=== PATIENT | female | born 1990 | race Caucasian/White ===

== ENCOUNTER 2020-03-08 17:28 | Observation (INO) | payer OTHER, SELFPAY ==
--- NOTE | 2020-03-08 17:28 | OBADM ---
This patient, Krystyna Wilde, admitted to the OB room Labor/Delivery/Recovery 105 for observation. Patient/family oriented to hospital policies and general routines including ID bracelet, bed and alarms, visiting hours, pain management, procedures, bathroom and other care routines, personal items, smoking policy, room service/diet, and visiting hours. Patient/Family are encouraged to report perceived risks to care and to ask questions if they do not understand what they are told or what they should do.
[2020-03-08 19:11] VITALS: BMI 26.5
--- NOTE | 2020-04-01 20:27 | PM.OBTRLD ---
OB - Triage/Final Diagnosis Final Diagnosis (1) False labor: Code(s): O47.9 - False labor, unspecified Status: Acute
== END 2020-03-08 19:23 | disposition home or self-care (01) ==
PROVIDERS: Admitting Provider Obstetrics & Gynecology; PCP Family Medicine; Visit Provider Obstetrics & Gynecology
DX: O47.03 False labor before 37 completed weeks of gestation, third trimester (principal); Z3A.39 39 weeks gestation of pregnancy
CPT/HCPCS: G0378; G0379

== ENCOUNTER 2020-03-18 16:29 | Inpatient (IN) | payer OTHER, SELFPAY ==
[2020-03-18] VITALS (55 sets, daily range): BP systolic 88–144; BP diastolic 55–90; PULSE 76–116; RESP 14–18; TEMP 36.5–37.2; O2SAT 97–100; BMI 27.3
[2020-03-18 17:16] LABS: Basophils Absolute Auto 0.1 K/mm3 (0.0-0.1); Basophils Percent Auto 0.5 % (0.2-1.2); Eosinophils Percent Auto 0.3 % (0-4.4); Hematocrit 40.2 % (37.0-47.0); Immature Granulocyte Absolute 0.19 K/mm3 (0.00-0.031); Immature Granulocyte Percent A 1.5 % (0-0.5); Lymphocytes Absolute Auto 3.14 K/mm3 (0.9-3.2); Lymphocytes Percent Auto 24.8 % (18.3-44.2); Mean Corpuscular HGB Conc 34.8 g/dl (32-36); Mean Corpuscular Hemoglobin 31.3 pg (26-34); Mean Corpuscular Volume 89.7 fl (80-100); Mean Platelet Volume 10.5 fl (7.4-10.4); Monocytes Absolute Auto 0.8 K/mm3 (0.1-0.6); Monocytes Percent Auto 6.2 % (2.6-8.5); Neutrophils Absolute Auto 8.4 K/mm3 (1.3-6.7); Neutrophils Percent Auto 66.7 % (45.5-73.1); Platelet Count Result 230 k/mm3 (150-375); Red Blood Count 4.48 M/mm3 (4.2-5.4); Red Cell Distribution Width 12.4 % (11.5-14.5); White Blood Count 12.7 K/mm3 (4.5-10.0)
[2020-03-18 17:29] LABS: Alanine Aminotransferase 20 U/L (4-35); Alkaline Phosphatase 275 U/L (38-126); Anion Gap 10 mmol/L (8-16); Aspartate Amino Transferase 36 U/L (14-36); Bilirubin,Total 0.4 mg/dL (0.2-1.3); Blood Urea Nitrogen 17 mg/dL (7-17); Carbon Dioxide 21 mmol/L (22-30); Chloride 104 mmol/L (98-107); Estimated CRCL calculation 77 ml/min; Estimated Glomerular Filt Rate > 60; Glucose 103 mg/dL (65-105); Potassium 4.1 mmol/L (3.4-5.0); Sodium 135 mmol/L (137-145)
[2020-03-18] MEDS: LACTATED RINGERS 1,000 ML 125 ML IV CONT (17:32)
[2020-03-18 17:37] LABS: Uric Acid 7.8 mg/dL (2.5-7.5)
[2020-03-18] MEDS: OXYTOCIN 30 UNITS/NS 500 ML 30 UNITS/500 ML BAG IV CONT (17:49)
[2020-03-18] MEDS: ceFAZolin 2 GM/D5W 50 ML 2 GM/50 ML BAG IVPB (19:26)
[2020-03-18] MEDS: LACTATED RINGERS 1,000 ML 999 ML IV CONT (19:30)
[2020-03-18] MEDS: KETOROLAC 30 MG/ML VIAL (*BKC) IV PUSH (19:41)
--- NOTE | 2020-03-18 19:56 | PM.IMHP ---
H&P: HPI History of Present Illness Date/Time: 03/18/20 19:56 pt is 29 y.o female who was admitted for GHTN, uric acid elevated, other labs stable, bp's not svere range, pt is asymptomatic w/o walker, visual changes and epigastric pain. CNM at bs to attempt membrane rupture due to heart rate decelerations. Chief complaint: Induction of Labor Narrative: Krystyna Wilde is a 29 year old female Review of Systems Review of Systems: All systems reviewed & are unremarkable except as noted in HPI and below [facility] Family History Family History (Updated 02/14/20 @ 15:36 by Maggie Padron RN) Mother Bladder disease Father Hypertension Social History Social History Smoking status: Never smoker Second hand tobacco smoke exposure: No Substance use: never Spiritual care concerns: No Meds Home Medications and Allergies Home Medications Medication Instructions Recorded Confirmed Type PNV cmb#95-ferrous fumarate-FA 1 tablet PO DAILY 02/14/20 03/08/20 History [] Allergies Allergy/AdvReac Type Severity Reaction Status Date / Time No Known Allergies Allergy Verified 02/14/20 15:34 Vital Signs Vital Signs - 24 hr 03/18/20 17:13 03/18/20 17:30 03/18/20 17:46 Temperature 36.6 C Pulse Rate 103 H 94 Blood Pressure 130/86 130/85 03/18/20 18:00 03/18/20 18:30 03/18/20 19:00 Temperature Pulse Rate 85 85 85 Blood Pressure 125/89 122/83 104/90 Exam Const: General: cooperative Nutritional Appearance: average body habitus Limitations: no limitations H&P: Results Labs Labs: Short CBC 03/18/20 Range/Units 17:00 WBC 12.7 H (4.5-10.0) K/mm3 Hgb 14.0 (12.0-15.0) g/dL Hct 40.2 (37.0-47.0) % Plt Count 230 (150-375) k/mm3 BMP 03/18/20 17:00 Sodium 135 L Potassium 4.1 Chloride 104 Carbon Dioxide 21 L BUN 17 Creatinine 0.90 Glucose 103 Calcium 10.0 Liver Function 03/18/20 Range/Units 17:00 Total Bilirubin 0.4 (0.2-1.3) mg/dL AST 36 (14-36) U/L ALT 20 (4-35) U/L Alkaline Phosphatase 275 H (38-126) U/L Albumin 4.0 (3.5-5.1) g/dL Assessment and Plan Assessment and plan (1) Gestational HTN: Code(s): O13.9 - Gestational [-induced] hypertension without significant proteinuria, unspecified trimester Status: Acute (2) intolerance to labor, delivered, current hospitalization: Code(s): O77.9 - Labor and delivery complicated by stress, unspecified Status: Acute Assessment and Plan: proceed with emergency section for intolerance to labor DR Painter to bedside
--- NOTE | 2020-03-18 19:57 | P.OP_ITS ---
Procedure Note - Detailed Date of procedure: 03/18/20 Pre-op diagnosis: Induction of Labor Term gestation, nonreassuring heart tones Post-op diagnosis: same Procedure performed: low-transverse delivery Description of procedure: The patient was taken the operating room. She was prepped and draped in the dorsal supine position with leftward tilt after induction of spinal anesthetic. When anesthesia was found to be adequate a low- transverse skin incision was made and carried down to the level the fascia with the knife. The fascial incision was made at the midline with a scalpel. The fascial incision was extended laterally with Flynn scissors. The fascia was tented upward superior and inferior with Beau clamps. The rectus muscles were dissected off bluntly. The rectus muscles at the midline. The preperitoneal fat was dissected bluntly at the superior aspect of the separate the rectus muscles. The peritoneal cavity was entered bluntly in the same area. The peritoneal incision was extended superior and inferior with good visualization of bladder. Bladder blade was inserted. A low-transverse incision was made on the uterus with the scalpel. It was carried down the level of the amniotic cavity with a knife. The amniotic cavity bluntly. The uterine incision was made laterally with blunt traction. The infant was delivered. The cord was clamped and cut. The infant was handed off to waiting pediatric staff. Cord bloods were obtained. The placenta was removed manually. The uterus was exteriorized. Uterus cleared of all clots and debris. Uterus closed in 0 V icryl in a running locked fashion. An imbricating layer of 0 Vicryl was also placed on the to bolster the closure. The uterus was returned to the abdomen. The gutters were cleared of all clots and debris. The fascia was closed 0 Vicryl in a running fashion. Subcutaneous tissue was irrigated and bleeding areas were cauterized. The skin was closed with subcuticular absorbable catherine. The incision was covered with derma burk. The patient tolerated the procedure well. She was taken recovery room stable condition. Sponge, lap, needle counts were correct x2. Anesthesia: spinal Surgeon: Karen Painter MD Estimated blood loss (mL): 367 Drains: No Packing: No Pathology: none sent Complications: No immediate complications Condition: stable Disposition: floor Findings: Normal maternal anatomy. Average size infant with normal Apgars. No gross evidence of abruption.
--- NOTE | 2020-03-18 20:22 | WPDANESEPPF ---
Anes - Initial Pre Proc Eval Procedure: Operation Date: 03/18/20 19:13 Proposed Procedures p Section - Karen Painter MD Date/Time: 03/18/20 20:22 Surgeon: Karen Painter MD Pre Op Diagnosis: Induction of Labor Patient Data Age: 29 Gender: F Height: 1.6 m Weight: 70 kg Last Vital Signs Temp 36.6 C 03/18/20 17:46 Pulse 109 H 03/18/20 20:20 BP 98/72 L 03/18/20 20:20 Pulse Ox 100 03/18/20 20:18 Allergies Allergy/AdvReac Type Severity Reaction Status Date / Time No Known Allergies Allergy Verified 02/14/20 15:34 Home Medications Medication Instructions Recorded Confirmed Type PNV cmb#95-ferrous fumarate-FA 1 tablet PO DAILY 02/14/20 03/08/20 History [] Laboratory Tests 03/18/20 03/18/20 03/18/20 17:00 17:00 17:00 WBC 12.7 K/mm3 H K/mm3 (4.5-10.0) RBC 4.48 M/mm3 M/mm3 (4.2-5.4) Hgb 14.0 g/dL g/dL (12.0-15.0) Hct 40.2 % % (37.0-47.0) MCV 89.7 fl fl (80-100) MCH 31.3 pg pg (26-34) MCHC 34.8 g/dl g/dl (32-36) RDW 12.4 % % (11.5-14.5) Plt Count 230 k/mm3 k/mm3 (150-375) MPV 10.5 fl H fl (7.4-10.4) Immature Gran % (Auto) 1.5 % H % (0-0.5) Neut % (Auto) 66.7 % % (45.5-73.1) Lymph % (Auto) 24.8 % % (18.3-44.2) [place] % (Auto) 6.2 % % (2.6-8.5) Eos % (Auto) 0.3 % % (0-4.4) Baso % (Auto) 0.5 % % (0.2-1.2) Lymph # (Auto) 3.14 K/mm3 K/mm3 (0.9-3.2) [place] # (Auto) 0.8 K/mm3 H K/mm3 (0.1-0.6) Eos # (Auto) 0.0 K/mm3 K/mm3 (0-0.3) Baso # (Auto) 0.1 K/mm3 K/mm3 (0.0-0.1) Abs Immat Gran (auto) 0.19 K/mm3 H K/mm3 (0.00-0.031) Absolute Neuts (auto) 8.4 K/mm3 H K/mm3 (1.3-6.7) Absolute Nucleated RBC 0.0 K/mm3 K/mm3 (0.0-0.012) Nucleated RBC % 0.0 % % (0.0-0.2) Sodium Potassium Chloride Carbon Dioxide Anion Gap BUN Creatinine Estim Creat Clear Calc Estimated GFR Glucose Uric Acid 7.8 mg/dL H mg/dL (2.5-7.5) Calcium Total Bilirubin AST ALT Alkaline Phosphatase Total Protein Albumin RPR Pending Blood Type Antibody Screen 03/18/20 03/18/20 17:00 17:00 WBC RBC Hgb Hct MCV MCH MCHC RDW Plt Count MPV Immature Gran % (Auto) Neut % (Auto) Lymph % (Auto) [place] % (Auto) Eos % (Auto) Baso % (Auto) Lymph # (Auto) Terry # (Auto) Eos # (Auto) Baso # (Auto) Abs Immat Gran (auto) Absolute Neuts (auto) Absolute Nucleated RBC Nucleated RBC % Sodium 135 mmol/L L mmol/L (137-145) Potassium 4.1 mmol/L mmol/L (3.4-5.0) Chloride 104 mmol/L mmol/L (98-107) Carbon Dioxide 21 mmol/L L mmol/L (22-30) Anion Gap 10 mmol/L mmol/L (8-16) BUN 17 mg/dL mg/dL (7-17) Creatinine 0.90 mg/dL mg/dL (0.7-1.0) Estim Creat Clear Calc 77 ml/min ml/min Estimated GFR > 60 (59 - ) Glucose 103 mg/dL mg/dL (65-105) Uric Acid Calcium 10.0 mg/dL mg/dL (8.4-10.2) Total Bilirubin 0.4 mg/dL mg/dL (0.2-1.3) AST 36 U/L U/L (14-36) ALT 20 U/L U/L (4-35) Alkaline Phosphatase 275 U/L H U/L (38-126) Total Protein 7.0 g/dL g/dL (6.3-8.2) Albumin 4.0 g/dL g/dL (3.5-5.1) RPR Blood Type O Positive Antibody Screen Negative Patient hx anesthesia problems: none Family hx anesthesia problems: n
[2020-03-18] MEDS: OXYTOCIN 30 UNITS/NS 500 ML 30 UNITS/500 ML BAG 125 UNITS IV CONT (21:54)
--- NOTE | 2020-03-18 23:10 | OBPPTRN ---
Patient transferred to post room # 286 via stretcher. Support person and (in crib) present. Oriented to unit, room, information board, rooming in, admission packet and security measures. Patient verbalizes understanding.
[2020-03-19] VITALS (8 sets, daily range): BP systolic 111–129; BP diastolic 66–88; PULSE 80–97; RESP 16–18; TEMP 36.3–36.6; O2SAT 97–100
[2020-03-19] MEDS: DEXTROSE 5%/0.45% SOD CHL 1,000 ML 125 ML IV CONT (02:36)
[2020-03-19] MEDS: LANOLIN (LANSINOH) 7.5 GM CREAM 1 APPLIC TOPICAL (04:31)
[2020-03-19] MEDS: KETOROLAC 30 MG/ML VIAL (*BKC) IV PUSH (05:09)
[2020-03-19 05:46] LABS: Basophils Percent Auto 0.3 % (0.2-1.2); Eosinophils Absolute Auto 0.1 K/mm3 (0-0.3); Eosinophils Percent Auto 0.4 % (0-4.4); Hematocrit 32.5 % (37.0-47.0); Hemoglobin 11.3 g/dL (12.0-15.0); Immature Granulocyte Absolute 0.16 K/mm3 (0.00-0.031); Lymphocytes Percent Auto 15.6 % (18.3-44.2); Mean Corpuscular HGB Conc 34.8 g/dl (32-36); Mean Corpuscular Volume 89.3 fl (80-100); Mean Platelet Volume 10.5 fl (7.4-10.4); Monocytes Absolute Auto 1.1 K/mm3 (0.1-0.6); Neutrophils Absolute Auto 12.1 K/mm3 (1.3-6.7); Neutrophils Percent Auto 75.7 % (45.5-73.1); Platelet Count Result 168 k/mm3 (150-375); Red Blood Count 3.64 M/mm3 (4.2-5.4); Red Cell Distribution Width 12.4 % (11.5-14.5)
[2020-03-19 06:04] LABS: Alanine Aminotransferase 17 U/L (4-35); Alkaline Phosphatase 204 U/L (38-126); Anion Gap 6 mmol/L (8-16); Aspartate Amino Transferase 37 U/L (14-36); Bilirubin,Total 0.4 mg/dL (0.2-1.3); Blood Urea Nitrogen 15 mg/dL (7-17); Calcium 9.2 mg/dL (8.4-10.2); Carbon Dioxide 23 mmol/L (22-30); Chloride 108 mmol/L (98-107); Estimated CRCL calculation 77 ml/min; Estimated Glomerular Filt Rate > 60; Glucose 93 mg/dL (65-105); Potassium 3.9 mmol/L (3.4-5.0); Sodium 137 mmol/L (137-145); Uric Acid 7.3 mg/dL (2.5-7.5)
--- NOTE | 2020-03-19 07:58 | P.PNOB_ITS ---
OB - PN: Subj Subjective Date/time seen: 03/19/20 07:58 Patient comments: no complaints baby status: doing well OB - PN: Obj Data Labs CBC & Chem 7: 03/19/20 05:04 03/19/20 05:04 Labs: Laboratory Results - last 24 hr 03/18/20 03/18/20 03/18/20 17:00 17:00 17:00 WBC 12.7 H RBC 4.48 Hgb 14.0 Hct 40.2 MCV 89.7 MCH 31.3 MCHC 34.8 RDW 12.4 Plt Count 230 MPV 10.5 H Immature Gran % (Auto) 1.5 H Neut % (Auto) 66.7 Lymph % (Auto) 24.8 [place] % (Auto) 6.2 Eos % (Auto) 0.3 Baso % (Auto) 0.5 Lymph # (Auto) 3.14 [place] # (Auto) 0.8 H Eos # (Auto) 0.0 Baso # (Auto) 0.1 Abs Immat Gran (auto) 0.19 H Absolute Neuts (auto) 8.4 H Absolute Nucleated RBC 0.0 Nucleated RBC % 0.0 Sodium Potassium Chloride Carbon Dioxide Anion Gap BUN Creatinine Estim Creat Clear Calc Estimated GFR Glucose Uric Acid 7.8 H Calcium Total Bilirubin AST ALT Alkaline Phosphatase Total Protein Albumin Blood Type O Positive Antibody Screen Negative 03/18/20 03/19/20 03/19/20 17:00 05:04 05:04 WBC 16.0 H RBC 3.64 L Hgb 11.3 L Hct 32.5 L MCV 89.3 MCH 31.0 MCHC 34.8 RDW 12.4 Plt Count 168 MPV 10.5 H Immature Gran % (Auto) 1.0 H Neut % (Auto) 75.7 H Lymph % (Auto) 15.6 L [place] % (Auto) 7.0 Eos % (Auto) 0.4 Baso % (Auto) 0.3 Lymph # (Auto) 2.50 [place] # (Auto) 1.1 H Eos # (Auto) 0.1 Baso # (Auto) 0.0 Abs Immat Gran (auto) 0.16 H Absolute Neuts (auto) 12.1 H Absolute Nucleated RBC 0.0 Nucleated RBC % 0.0 Sodium 135 L 137 Potassium 4.1 3.9 Chloride 104 108 H Carbon Dioxide 21 L 23 Anion Gap 10 6 L BUN 17 15 Creatinine 0.90 0.90 Estim Creat Clear Calc 77 77 Estimated GFR > 60 > 60 Glucose 103 93 Uric Acid 7.3 Calcium 10.0 9.2 Total Bilirubin 0.4 0.4 AST 36 37 H ALT 20 17 Alkaline Phosphatase 275 H 204 H Total Protein 7.0 6.0 L Albumin 4.0 3.0 L Blood Type Antibody Screen OB - PN A/P Plan day: 1 Plan: routine care Time Spent With Patient Time: Total time spent is greater than 50% in coordination of care (as documented) at patient's floor/unit and/or counseling patient: Review of Systems Review of Systems: All systems reviewed & are unremarkable except as noted in HPI and below Exam Const: General: cooperative Psych: Attitude: cooperative Thought content: Yes Normal thought content present
--- NOTE | 2020-03-19 09:11 | WPDANLDPN2 ---
Anes-Prog Note L&D Date/Time: 03/19/20 09:11 Comfortable throughout: section Neuraxial method: spinal Epidural/Spinal procedure site: clean & non-tender Neuro status: Neuro function grossly intact. Cardiovascular status: normal Respiratory status: normal Airway patency: baseline Mental status: baseline Post-Op hydration status: normal Vital Signs: Last Vital Signs Temp 36.6 C 03/19/20 07:25 Pulse 80 03/19/20 07:25 Resp 18 03/19/20 07:25 BP 111/66 03/19/20 07:25 Pulse Ox 97 03/19/20 07:25 Pain score (VAS): 3 I/O: Intake & Output 03/18/20 03/19/20 03/19/20 23:59 07:59 15:59 Intake Total 1156 1168 Output Total 337 500 Balance 819 668 Post-procedural complaints: pruritis mild, no treatment Patient feedback: Patient satisfied with anesthetic care.
--- NOTE | 2020-03-19 09:11 | WPDANLDNPN2 ---
Anes-Prog Note L&D-Neuraxial Date/Time: 03/19/20 09:11 Neuraxial medications: intrathecal PF morphine Opiod-related complaints: pruritis mild, no treatment Patient feedback: Patient satisfied with post-operative pain management.
--- NOTE | 2020-03-19 09:25 | PC.NURSE ---
Mother called out for assist with waking for feeding. Consulted with patient, mother reports has been eagerly feeding, since circumcision will not wake. Assured mother this is normal. Demonstrated stimulation techniques to wake infant for feeding. Infant easily awoke with feeding cues noted. Assisted with to breast. Reviewed infant feeding cues, frequencies, duration of feedings, feeding elimination flow sheet, and signs of adequate intake. Reviewed positioning/alignment in cross cradle, holding breast in U hold and guided asymmetrical latch on. Infant was able to latch correctly. Infant nursed eagerly, with steady draws and frequent swallowing noted. Reviewed signs of a correct latch, effective nursing and suck swallow ratio. was able to maintain latch without discomfort to mother. Nipple care reviewed. Suggested to stimulate while feeding to keep awake and effectively feeding for increased intake and to assist with maintaining deep latch. Demonstrated how to adjust latch more deeply while feeding. Instructed mother to call out for RN assistance if she is unable to latch infant for feeding or she has discomfort with nursing. Instructed feeding should be initiated three hours from start of last feeding or if feeding cues are noted before. Mother voiced understanding of information shared.
[2020-03-19 11:20] LABS: Rapid Plasma Reagin Non-Reactive (NonReactive)
[2020-03-19] MEDS: DOCUSATE SODIUM 100 MG CAPSULE PO ×2 (11:22→17:27)
[2020-03-19] MEDS: MULTIVIT/MIN/PREN/FOL AC/IRON TABLET 1 TAB PO (11:22)
[2020-03-19] MEDS: HYDROcodone/acetaminophen (*CRX) 10-325 MG TABLET 1 TAB PO ×3 (11:22→17:27)
[2020-03-19] MEDS: SIMETHICONE 80 MG TAB.CHEW PO ×2 (11:22→14:49)
[2020-03-19] MEDS: IBUPROFEN 600 MG TABLET PO ×2 (11:23→17:28)
--- NOTE | 2020-03-19 14:45 | PC.NURSE ---
Mother called out for assist with feeding . Reviewed positioning/alignment in cross cradle, holding breast in U hold and guided asymmetrical latch on. Discussed the rational for each. Infant was able to latch correctly. Infant nursed eagerly, with steady draws and frequent swallowing noted. Reviewed signs of a correct latch, effective nursing and suck swallow ratio. Infant was able to maintain latch without discomfort to mother. Advised to stimulate while feeding to keep awake and effectively feeding for increased intake and to assist with maintaining deep latch. Demonstrated how to adjust latch more deeply while feeding. Instructed mother to call out for RN assistance if she is unable to latch infant for feeding or she has discomfort with nursing. Instructed feeding should be initiated three hours from start of last feeding or if feeding cues are noted before. Mother voiced understanding of information shared. Reviewed transition to breast milk, signs of adequate intake, and engorgement/relief. Instructed to call ICP if intake/output less than required. Reviewed regular medications mother is taking. Information provided per [place]. Reviewed community resources on the [facility] website and in the Mom/Baby guide. Information on outpatient services provided. Mother has no further questions at this time.
[2020-03-20] MEDS: IBUPROFEN 600 MG TABLET PO (03:53)
[2020-03-20] MEDS: HYDROcodone/acetaminophen (*CRX) 5-325 MG TABLET 1 TAB PO ×2 (03:53→08:47)
[2020-03-20 08:38] VITALS: BP 108/73; PULSE 96; RESP 18; TEMP 36.6; O2SAT 100
[2020-03-20] MEDS: DOCUSATE SODIUM 100 MG CAPSULE PO (08:47)
[2020-03-20] MEDS: MULTIVIT/MIN/PREN/FOL AC/IRON TABLET 1 TAB PO (08:47)
[2020-03-20] MEDS: MEASLES,MUMPS,RUBELLA VACCINE 0.5 ML VIAL SUB-Q (08:48)
--- NOTE | 2020-03-20 09:00 | PC.NURSE ---
Consulted with patient, reviewed duration of feedings, feeding elimination flow sheet, and signs of adequate intake. Demonstrated stimulation techniques to wake for feeding. Assisted with to breast. Reviewed positioning/alignment, holding breast and asymmetrical latch on. Infant was able to latch correctly. Infant nursed eagerly, with steady draws. Reviewed signs of a correct latch, effective nursing and suck swallow ratio as well as keeping infant awake during feeds. was able to maintain latch without discomfort to mother. Instructed mother to call out for RN assistance if she is unable to latch infant for feeding or she has discomfort with nursing. Instructed feeding should be initiated three hours from start of last feeding or if feeding cues are noted before. Educated mother about pumping after feeds if doesn't feed well and supplementing with any pumped breast milk she gets. Mother voiced understanding of information shared.
--- NOTE | 2020-03-20 09:01 | P.PNOB_ITS ---
OB - PN: Subj Subjective Date/time seen: 03/20/20 09:01 Patient comments: no complaints, pain well controlled, tolerating diet and flatus present [place] baby status: doing well OB - PN: Obj Data Labs CBC & Chem 7: 03/19/20 05:04 03/19/20 05:04 Labs: Laboratory Results - last 24 hr 03/18/20 17:00 RPR Non-reactive OB - PN A/P Plan day: 2 Plan: routine care and discharge home (Follow up in 1 week) Time Spent With Patient Time: Total time spent is greater than 50% in coordination of care (as documented) at patient's floor/unit and/or counseling patient: Time with patient: less than 15 minutes Review of Systems Review of Systems: All systems reviewed & are unremarkable except as noted in HPI and below Exam Narrative: Exam Narrative: Fundus firm. Vaginal flow controlled. Incision dry and intact. Negative homans. No redness, warmth, or pain of lower ext. Const: General: comfortable Chest: Breast/axilla inspection: normal inspection of the breasts Resp: Effort & Inspection: normal respiratory effort Auscultation: clear to auscultation bilaterally Cardio: Rate: regular rate GI: GI Palp: Yes Soft to palpation Psych: Appearance: grossly normal Affect: normal affect Attitude: cooperative Thought content: Yes Normal thought content present Judgement: Good judgement present (Psych)
--- NOTE | 2020-03-20 11:15 | PC.NURSE ---
Patient instructed to view the discharge video Mother & Baby Care, The First Two Weeks . Patient was given the opportunity and encouraged to ask questions. Patient verbalized understanding of information shared and has been given the mother/baby guide for home reference.
[2020-03-22 11:59] VITALS: BP 123/72; PULSE 73; RESP 16; TEMP 37.1; O2SAT 99
--- NOTE | 2020-04-12 20:52 | PM.OBDSVD ---
DS: Admitting Diagnosis Admitting Diagnosis Admitting Diagnosis: Induction of Labor DS: Discharge Diagnosis Discharge Diagnosis (1) delivery delivered: Code(s): O82 - Encounter for delivery without indication Status: Acute OB - DS: Summary OB Procedures : None OB Procedures Intrapartum: OB Procedures: : None Peripartum Data Delivery Method: Section Procedures: Procedures Operation Date: 03/18/20 19:13 Actual Procedures Side Surgeon p Section Karen Painter MD complications: none Status at Discharge Functional status at discharge: independent ambulation Time Spent with Patient Time attestation: Total time spent providing and/or coordinating discharge services: DS: Data Data Completed and Pending Completed studies during hospitalization: Pending at discharge 03/17/20 19:38 Surgical [PTH] Routine Discharge Plan Discharge Attending physician on discharge: Karen Painter Consulting providers: Rosalio Zavala ; Charlene Murray ; Ngozi Falcon Discharging Clinician: Ngozi Falcon Patient Disposition: Home, Self-Care Activity: pelvic rest Diet: as tolerated Wound Care Instructions: follow printed instructions Discharge Instructions: Education: Mom and Baby Guide and Preeclampsia Handout given to: Mother Follow-Up: Call your delivering provider's office for an appointment to be seen in: 1 Week Mom and baby should come to the [facility] for the follow-up appointment. Appointment Date/Time: March 22, 2020 at 11:00 am What to expect at your follow-up visit: Physical Assessment Call [phone] if you are unable to keep your appointment time. BREAST CARE: * Wear a snug supportive bra. * For engorgement discomfort: Breast Feeding: * Apply warm moist washcloths * Express milk as needed to relieve engorgement * Wear loose clothing * For sore nipples: * Identify correct latch-on * Apply warm moist washcloths before and after nursing * Air dry nipples after nursing * May apply Lansinoh cream to nipples ABDOMINAL INCISION: (if applicable) * Allow incision to air dry * Do NOT use lotions for powders on your incision * When showering, allow soap and water to run over the incision, but do not wash incision EPISIOTOMY/PERINEAL CARE: * Until bleeding stops, use your radha bottle after urinating * Change your pad frequently throughout the day * No tub baths until seen by your physician - You may shower ACTIVITY: * Rest as much as possible. * Do not exercise or lift anything heavier than your baby (such as laundry or other children.) * Avoid stairs or driving as much as possible. * Do not put anything into the vagina. No douching, tampons, or sexual activity until seen by physician. NOTIFY PHYSICIAN IF YOU HAVE ANY QUESTIONS OR IF ANY OF THE FOLLOWING SYMPTOMS OCCUR: * If your incision becomes red, swollen, or more painful than what you have experienced in the hospital. * If your vaginal bleeding becomes foul smelling. * If your vaginal bleeding becomes more heavy than a period or if your bleeding changes from pink to bright red. However, you may pass an occasional walnut-sized clot once or twice for the first week . * If you experience a sharp, shooting pain in you calves. * If you discover a hard, reddened area on your breast or if you experience flu-like symptoms. DIET: * Eat regular, well-balanced meals. * Drink plenty of fluids daily. If , drink to thirst. Stand Alone Forms: General Discharge Information Follow-up/Referrals: Karen Painter MD [Physician] - Discharge Medications: New hydrocodone-acetaminophen 5-325 mg Tablet 1 tab PO Q3H PRN (Reason: Moderate Pain (4-6)) Qty: 10 RF: 0 ibuprofen 600 mg Tablet 600 mg PO Q6H P
== END 2020-03-20 12:11 | disposition home or self-care (01) | DRG 540 ==
LOC: ANHLDR 19:25 → ANHOB2 03-19 04:32
PROVIDERS: Advanced Practice Midwife; Admitting Provider Obstetrics & Gynecology; PCP Family Medicine; Visit Provider Obstetrics & Gynecology
PROC: 10D00Z1 Extraction of Products of Conception, Low, Open Approach (ICD-10-PCS; CPT 59514; principal; 2020-03-18 19:15)
DX: O13.4 Gestational [pregnancy-induced] hypertension without significant proteinuria, complicating childbirth (principal); O76 Abnormality in fetal heart rate and rhythm complicating labor and delivery; O69.82X0 Labor and delivery complicated by other cord entanglement, without compression, not applicable or unspecified; Z3A.40 40 weeks gestation of pregnancy; Z37.0 Single live birth
CPT/HCPCS: 36415; 80053; 84550; 85025; 86592; 86850; 86900; 86901; 88307; 90710; A9270; J0690; J1885; J2274; J2405; J2590; J7120

== ENCOUNTER 2023-05-11 10:10 | Inpatient (IN) | payer OTHER, SELFPAY ==
[2023-05-11] VITALS (39 sets, daily range): BP systolic 91–121; BP diastolic 64–90; PULSE 69–183; RESP 12–18; TEMP 36.1–36.9; O2SAT 97–100; BMI 27.5
--- NOTE | 2023-05-11 10:47 | P.PNAN_ITS ---
Anes - Initial Pre Proc Eval Procedure: Operation Date: 05/11/23 12:00 Proposed Procedures p Repeat Section - Karen Painter MD Date/Time: 05/11/23 10:47 Surgeon: Karen Painter MD Pre Op Diagnosis: Repeat C Section Patient Data Age: 32 Gender: F Height: Weight: Allergies Allergy/AdvReac Type Severity Reaction Status Date / Time No Known Allergies Allergy Verified 02/14/20 15:34 Home Medications Medication Instructions Recorded Confirmed Type vit no.95-ferrous 1 tablet PO DAILY 02/14/20 03/08/20 History fumarate 28 mg-folic acid 800 mcg tablet () [id number] 1 cap PO Q6H PRN migrane 04/14/23 04/14/23 History 50 mg-300 mg-40 mg capsule Patient hx anesthesia problems: none Family hx anesthesia problems: none Results Review: All pre-operative results and documents have been reviewed as part of the pre- operative evaluation. PMFSH Family History Family History Mother Bladder disease Father Hypertension Social History Social History Smoking status: Never smoker Second hand tobacco smoke exposure: No Substance use: never Spiritual care concerns: No Anes - Eval Final PreProcedure Day of Procedure 05/11/23 10:47 Patient weight: overweight Heart: regular rate and rhythm Lungs: clear to auscultation Airway: Mallampati scale class II Neurological: alert and oriented Last oral intake: >/= 8 hours ASA classification: II Emergent: no Anesthetic plan: proceed Anesthesia type and monitoring: regional spinal and standard monitoring Results Review: All pre-operative results and documents have been reviewed as part of the pre- operative evaluation. Informed Consent: The patient's anesthetic plan and its attendant risks and benefits were dis cussed with the patient/family/POA. Questions were solicited and answers provided to the satisfaction of the patient/family/POA.
[2023-05-11 10:51] LABS: Basophils Absolute Auto 0.1 K/mm3 (0.0-0.1); Basophils Percent Auto 0.6 % (0.2-1.2); Eosinophils Absolute Auto 0.1 K/mm3 (0-0.3); Eosinophils Percent Auto 0.6 % (0-4.4); Hematocrit 36.4 % (37.0-47.0); Hemoglobin 12.6 g/dL (12.0-15.0); Immature Granulocyte Absolute 0.22 K/mm3 (0.00-0.031); Immature Granulocyte Percent A 2.2 % (0-0.5); Lymphocytes Absolute Auto 2.04 K/mm3 (0.9-3.2); Lymphocytes Percent Auto 19.9 % (18.3-44.2); Mean Corpuscular HGB Conc 34.6 g/dl (32-36); Mean Corpuscular Volume 89.7 fl (80-100); Mean Platelet Volume 9.9 fl (7.4-10.4); Monocytes Absolute Auto 0.7 K/mm3 (0.1-0.6); Monocytes Percent Auto 7.2 % (2.6-8.5); Neutrophils Absolute Auto 7.1 K/mm3 (1.3-6.7); Neutrophils Percent Auto 69.5 % (45.5-73.1); Platelet Count Result 201 k/mm3 (150-375); Red Blood Count 4.06 M/mm3 (4.2-5.4); Red Cell Distribution Width 12.3 % (11.5-14.5); White Blood Count 10.2 K/mm3 (4.5-10.0)
--- NOTE | 2023-05-11 10:57 | PM.IMHP ---
H&P: HPI History of Present Illness Date/Time: 05/11/23 10:57 Chief Complaint: Previous delivery, term Narrative: 32-year-old multiparous female at term with previous . We have agreed to perform repeat delivery at 39 weeks. She understands the procedure. She understands there is risk. She understands that injuries may occur that resulted hospitalization, more surgery, and severe illness. She understands there is risk of hemorrhage and infection. She denies any nausea, vomiting, fever, chills. She denies any chest pain or shortness of breath. She denies any contractions, loss of fluid, vaginal bleeding. Review of Systems Review of Systems: All systems reviewed & are unremarkable except as noted in HPI and below Constitutional: Constitutional: Denies chills, Denies fatigue, Denies fever(s) and Denies weakness Eyes: Eyes: Denies blurry vision, Denies change in vision, Denies loss of peripheral vision, Denies loss of vision, Denies other visual disturbances and Denies eye pain ENT: Denies vertigo, Denies dizziness, Denies hearing loss, Denies mouth pain, Denies nasal obstruction, Denies neck mass and Denies neck pain Cardiovascular: Cardiovascular: Denies chest pain, Denies diaphoresis, Denies syncope, Denies leg edema and Denies dyspnea Respiratory: Respiratory: Denies chest congestion, Denies cough, Denies hemoptysis, Denies dyspnea and Denies wheezing Gastrointestinal: Gastrointestinal: Denies abdominal pain, Denies constipation, Denies diarrhea, Denies nausea and Denies vomiting Genitourinary: Genitourinary: Denies hematuria, Denies change in libido, Denies nocturia, Denies genital lesions, Denies flank pain and Denies urinary urgency Musculoskeletal: Musculoskeletal: Denies abnormal gait, Denies back pain, Denies myalgias, Denies arthralgias, Denies joint swelling, Denies muscle weakness and Denies neck pain Integumentary/Breasts: Skin/Breast: Denies swelling, Denies breast pain, Denies breast mass, Denies dry skin, Denies nipple discharge, Denies unusual bruising and Denies jaundice Neurologic: Denies Neuro-related abnormal movements, Denies Abnormal speech present, Denies abnormal gait, Denies behavioral changes, Denies confusion, Denies vertigo, Denies dizziness, Denies syncope, Denies loss of vision, Denies memory loss, Denies convulsions and Denies weakness Psychiatric: Psychiatric: Denies abnormal sleep pattern, Denies behavioral changes, Denies change in libido, Denies confusion, Denies depression, Denies anhedonia and Denies memory loss Endocrine: Endocrine: Reports no additional endocrine complaints, Denies change in libido and Denies fatigue Hematologic/Lymphatic: Hematologic/Lymphatic: Reports no additional hematologic/lymphatic complaints Allergic/Immunologic: Allergic/Immunologic: Reports no additional allergic/immunologic complaints and Denies wheezing PMFSH Family History Family History Mother Bladder disease Father Hypertension Social History Social History Smoking status: Never smoker Second hand tobacco smoke exposure: No Substance use: never Lack of Transportation: No Lack of Food: Never True Current Housing: I Have Housing Concerned About Future Housing: No Difficulty Paying Gas/Electric Bills: No Difficulty Paying for Meds: No Currently Unemployed: No Education: Associate Degree Difficulty w/ Childcare or Family Care: No Spiritual care concerns: No Meds Home Medications and Allergies Home Medications Medication Instructions Recorded Confirmed Type vit no.95-ferrous 1 tablet PO DAILY 02/14/20 03/08/20 History fumarate 28 mg-folic acid 800 mcg tablet () wehstynhzh-rrhwucmocufmd-rblsflbx 1 cap PO Q6H PRN migrane 04/14/23 04/14/23 History 50 mg-300 mg-40 mg capsule Allergies Allergy/Ad
--- NOTE | 2023-05-11 10:59 | WPDHPUPDATE1 ---
History and Physical Update Update Date/Time: 05/11/23 10:59 History and Physical has been reviewed, including an updated exam of the patient. There are NO changes in the patient's condition. Risks, benefits, and alternatives have been discussed and questions answered. Patient agrees to proceed with procedure.
[2023-05-11] MEDS: LACTATED RINGERS 1,000 ML 125 ML IV CONT (11:02)
[2023-05-11] MEDS: ceFAZolin 2 GM/D5W 50 ML 2 GM/50 ML BAG IVPB (11:24)
[2023-05-11] MEDS: ONDANSETRON INJ 4 MG/2 ML VIAL IV PUSH (11:48)
--- NOTE | 2023-05-11 12:20 | W.PM.PROC2 ---
Procedure Note - Detailed Date of Procedure 05/11/23 Pre-op Diagnosis Repeat C Section Post-op Diagnosis Same Procedure Performed Low-transverse section Surgeon Karen Painter MD Anesthesia Spinal Findings Normal gestational maternal anatomy, average size , normal Apgars. Description of Procedure The patient was taken the operating room. She was prepped and draped in dorsal supine position with a leftward tilt. This was done after spinal anesthetic was applied. A low-transverse skin incision was made and carried down till of the fascia with the knife. The fascial incision was made with the knife. The fascial incision was extended laterally with Flynn scissors. The fascia was tented upward superiorly and inferiorly the rectus muscles were dissected off bluntly. The rectus muscles were the midline. The preperitoneal fat and peritoneum were dissected open bluntly at the superior aspect of the rectus muscles. The peritoneal incision was extended superior and inferior with good position of bladder. The uterine incision was made with a scalpel down to the level of the amniotic cavity. The amniotic cavity was entered bluntly. The was delivered. The cord was clamped and cut and the infant was handed off to waiting pediatric staff. Cord bloods were obtained. The placenta was removed manually. The uterus was exteriorized. The uterus was cleared of all clots, debris and membranes. The uterus was closed in 0 Vicryl running lock fashion. An imbricating over a was placed along the incision line as well. The uterus was returned to the abdomen. The gutters were cleared of all clots and debris. The fascia was closed with 0 Vicryl running fashion. The subcutaneous tissue was irrigated pinpoint bleeders were cauterized. The skin was closed with subcuticular absorbable catherine. The skin incision line was covered with glue. The patient tolerated the procedure well. She has taken recovery room in stable condition. Sponge lap and needle counts were correct x2. Complications No immediate complications Condition Stable Disposition PACU
[2023-05-11] MEDS: OXYTOCIN 30 UNITS/NS 500 ML 30 UNITS/500 ML BAG 125 UNITS IV CONT (12:36)
[2023-05-11] MEDS: fentaNYL CITRATE INJ (*CRX) 100 MCG/2 ML VIAL 25 MCG IV PUSH ×7 (13:39→15:49)
[2023-05-11 16:37] LABS: Rapid Plasma Reagin Non-Reactive (NonReactive)
[2023-05-11] MEDS: DEXTROSE 5%/0.45% SOD CHL 1,000 ML 125 ML IV CONT (16:45)
[2023-05-11] MEDS: KETOROLAC 30 MG/ML VIAL (*BKC) IV PUSH (16:45)
[2023-05-11] MEDS: IBUPROFEN 600 MG TABLET PO (23:12)
[2023-05-11] MEDS: HYDROcodone/acetaminophen (*CRX) 5-325 MG TABLET 1 TAB PO (23:12)
[2023-05-12] MEDS: HYDROcodone/acetaminophen (*CRX) 5-325 MG TABLET 1 TAB PO ×5 (02:03→23:42)
[2023-05-12 05:30] VITALS: BP 109/68; PULSE 82; RESP 16; TEMP 36.6
[2023-05-12] MEDS: SIMETHICONE 80 MG TAB.CHEW PO ×3 (05:53→15:53)
[2023-05-12] MEDS: IBUPROFEN 600 MG TABLET PO ×3 (05:53→23:41)
[2023-05-12] MEDS: HYDROcodone/acetaminophen (*CRX) 10-325 MG TABLET 1 TAB PO ×3 (05:53→12:22)
[2023-05-12 06:02] LABS: Basophils Percent Auto 0.3 % (0.2-1.2); Eosinophils Absolute Auto 0.1 K/mm3 (0-0.3); Eosinophils Percent Auto 0.6 % (0-4.4); Hematocrit 32.8 % (37.0-47.0); Hemoglobin 10.9 g/dL (12.0-15.0); Immature Granulocyte Absolute 0.16 K/mm3 (0.00-0.031); Immature Granulocyte Percent A 1.3 % (0-0.5); Lymphocytes Absolute Auto 2.32 K/mm3 (0.9-3.2); Lymphocytes Percent Auto 19.5 % (18.3-44.2); Mean Corpuscular HGB Conc 33.2 g/dl (32-36); Mean Corpuscular Hemoglobin 31.2 pg (26-34); Mean Platelet Volume 10.2 fl (7.4-10.4); Monocytes Percent Auto 8.6 % (2.6-8.5); Neutrophils Absolute Auto 8.3 K/mm3 (1.3-6.7); Neutrophils Percent Auto 69.7 % (45.5-73.1); Platelet Count Result 165 k/mm3 (150-375); Red Blood Count 3.49 M/mm3 (4.2-5.4); Red Cell Distribution Width 12.5 % (11.5-14.5); White Blood Count 11.9 K/mm3 (4.5-10.0)
[2023-05-12] MEDS: DOCUSATE SODIUM 100 MG CAPSULE PO ×2 (08:58→17:14)
[2023-05-12] MEDS: MULTIVIT/MIN/PREN/FOL AC/IRON TABLET 1 TAB PO (08:58)
[2023-05-12] MEDS: LANOLIN (LANSINOH) 7.5 GM CREAM 1 APPLIC TOPICAL (09:00)
[2023-05-12 09:15] VITALS: BP 107/69; PULSE 82; RESP 18; TEMP 36.7; O2SAT 100
--- NOTE | 2023-05-12 11:18 | WPDANLDPN2 ---
Anes-Prog Note L&D Date/Time: 05/12/23 11:18 Comfortable throughout: section Neuraxial method: spinal Epidural/Spinal procedure site: clean & non-tender Neuro status: Neuro function grossly intact. Cardiovascular status: normal Respiratory status: normal Airway patency: baseline Mental status: baseline Post-Op hydration status: normal Vital Signs: Last Vital Signs Temp 98.0 F 05/12/23 09:15 Pulse 82 05/12/23 09:15 Resp 18 05/12/23 09:15 BP 107/69 05/12/23 09:15 Pulse Ox 100 05/12/23 09:15 O2 Del Method Room Air 05/11/23 14:15 Pain score (VAS): 2 I/O: Intake & Output 05/11/23 05/12/23 05/12/23 23:59 07:59 15:59 Intake Total 500 240 Output Total 200 1000 Balance -200 -500 240 Post-procedural complaints: pruritis severe, treatment refractory Patient feedback: Patient satisfied with anesthetic care.
--- NOTE | 2023-05-12 11:19 | WPDANLDNPN2 ---
Anes-Prog Note L&D-Neuraxial Date/Time: 05/12/23 11:19 Neuraxial medications: intrathecal PF morphine Opiod-related complaints: pruritis severe, treatment refractory Patient feedback: Patient satisfied with post-operative pain management.
[2023-05-12 20:53] VITALS: BP 114/73; PULSE 104; RESP 16; TEMP 36.8; O2SAT 100
[2023-05-13] MEDS: MULTIVIT/MIN/PREN/FOL AC/IRON TABLET 1 TAB PO (07:23)
[2023-05-13] MEDS: DOCUSATE SODIUM 100 MG CAPSULE PO (07:24)
[2023-05-13] MEDS: SIMETHICONE 80 MG TAB.CHEW PO (07:24)
[2023-05-13] MEDS: HYDROcodone/acetaminophen (*CRX) 5-325 MG TABLET 1 TAB PO (07:24)
[2023-05-13 07:25] VITALS: BP 113/80; PULSE 90; RESP 16; TEMP 36.3; O2SAT 99
[2023-05-13] MEDS: IBUPROFEN 600 MG TABLET PO ×2 (07:25→15:51)
--- NOTE | 2023-05-13 11:07 | PM.OBPNVD ---
OB - PN: Subj Subjective Date/time seen: 05/13/23 11:07 Patient comments: no complaints, pain well controlled, incisional pain, tolerating diet and flatus present OB - PN: Obj Data Labs 05/12/23 05:41 OB - PN A/P Plan day: 2 Plan: routine care Comments: POD#2 LTCS - no problems, Time Spent With Patient Time: Total time spent is greater than 50% in coordination of care (as documented) at patient's floor/unit and/or counseling patient: Exam Const: General: comfortable, no acute distress and alert Resp: Effort & Inspection: normal respiratory effort Auscultation: no crackles, no rales and no rhonchi Cardio: Rate: regular rate Heart sounds: no click, no murmurs and no rubs GI: Inspection: non-distended Auscultation: normal bowel sounds Other: Incision - CDI Extrem: General: normal to inspection, no pedal edema and no calf tenderness
--- NOTE | 2023-05-13 11:09 | PM.OBDSVD ---
DS: Admitting Diagnosis Discharge Date May 13, 2023 Admitting Diagnosis term , previous DS: Discharge Diagnosis Discharge Diagnosis (1) delivery delivered: Code(s): O82 - Encounter for delivery without indication Status: Acute OB - DS: Summary OB Procedures : None OB Procedures Intrapartum: OB Procedures: : None Peripartum Data Procedures: Procedures Operation Date: 05/11/23 12:00 Actual Procedure Side Surgeon p Repeat Section Not Applicable Karen Painter MD Time Spent with Patient Time attestation: Total time spent providing and/or coordinating discharge services: Discharge Plan Discharge Discharging Clinician: Karen Painter Patient Disposition: Home, Self-Care Activity: pelvic rest Diet: regular Patient Instructions: Antibiotic Form Stand Alone Forms: General Discharge Information Follow-up/Referrals: Karen Painter MD [Physician] - Discharge Medications: Continued PNV cmb#95-ferrous fumarate-FA [] 28 mg iron- 800 mcg Tablet 1 tablet PO DAILY mbtxafvmiu-efunfoerbnrna-qvga 50-300-40 mg Capsule 1 cap PO Q6H PRN (Reason: migrane) Date of admission: 05/11/23 10:10 Primary Care Provider: Wale,Elías Sandoval Admitting Provider: Karen Painter Attending physician on admission: Karen Painter Condition: Stable
[2023-05-13] MEDS: HYDROcodone/acetaminophen (*CRX) 10-325 MG TABLET 1 TAB PO ×2 (12:12→15:50)
== END 2023-05-13 16:22 | disposition home or self-care (01) | DRG 540 ==
LOC: ANHLDR 10:20 → ANHOB2 19:14
PROVIDERS: Admitting Provider Obstetrics & Gynecology; PCP Family Medicine; Visit Provider Obstetrics & Gynecology
PROC: 10D00Z1 Extraction of Products of Conception, Low, Open Approach (ICD-10-PCS; CPT 59514; principal; 2023-05-11 12:00)
DX: O34.211 Maternal care for low transverse scar from previous cesarean delivery (principal); Z37.0 Single live birth; Z3A.40 40 weeks gestation of pregnancy; O99.73 Diseases of the skin and subcutaneous tissue complicating the puerperium; L29.9 Pruritus, unspecified
CPT/HCPCS: 36415; 85025; 86592; 86850; 86900; 86901; A9270; J0690; J1885; J2274; J2405; J2590; J3010; J7120

== ENCOUNTER 2023-06-30 12:31 | Emergency (ER) | payer OTHER, SELFPAY ==
[2023-06-30 12:36] VITALS: BP 133/108; PULSE 71; RESP 20; TEMP 36.4; O2SAT 100
[2023-06-30 12:44] VITALS: BP 133/108; PULSE 71; RESP 20; TEMP 36.4; O2SAT 100
--- NOTE | 2023-06-30 13:28 | ED.GENADULT ---
HPI - General Adult General Chief complaint: Upper Respiratory Infection Stated complaint: right ear/sinus Source: patient Mode of arrival: ambulatory Limitations: no limitations History of Present Illness HPI narrative: Patient presents for evaluation of right ear pain for about 1 week. She reports muffled hearing and tinnitus on the right. She had some drainage from the right ear but that has improved. She had some sinus congestion but that has also improved. No fever, chills, nausea, vomiting. She received a script for amoxicillin 500mg po BID x 7 days that she completed today. She is currently . Related Data Allergies Allergy/AdvReac Type Severity Reaction Status Date / Time No Known Allergies Allergy Verified 06/30/23 12:38 Review of Systems Review of Systems: CONSTITUTIONAL: Denies fever, chills, or sweats. EYES: Denies visual changes, redness, or discharge. ENT: Reports right ear pain, muffled hearing, and tinnitus. Reports recent drainage from the right ear, now resolved. Reports recent sinus congestion, now improved. CARDIOVASCULAR: Denies chest pain, palpitations, or edema. RESPIRATORY: Denies cough or dyspnea. GASTROINTESTINAL: Denies abdominal pain, nausea, vomiting, or diarrhea. GENITOURINARY: Denies dysuria or hematuria. SKIN: Denies rash or itching. MUSCULOSKELETAL: Denies back pain, joint pain, or myalgia. NEUROLOGIC: Denies headache, numbness, dizziness, or weakness. PSYCHIATRIC: Denies anxiety or depression. [facility] Past Medical History Medical History No pertinent past medical history Surgical History Surgical History History of Family History Family History Mother Bladder disease Father Hypertension Social History Social History Smoking status: Never smoker Second hand tobacco smoke exposure: No Substance use: never Do You Feel Safe in your Home?: Yes Lack of Transportation: No Lack of Food: Never True Current Housing: I Have Housing Concerned About Future Housing: No Difficulty Paying Gas/Electric Bills: No Difficulty Paying for Meds: No Currently Unemployed: No Education: Associate Degree Difficulty w/ Childcare or Family Care: No Spiritual care concerns: No Exam Narrative: GENERAL: Well-appearing, well-nourished, and in no acute distress. HEAD: Normocephalic, atraumatic. EYES: PERRLA and EOMI. ENT: Nares clear, no rhinorrhea or epistaxis. Mucous membranes moist. Oropharynx without tonsillar hypertrophy exudate or other lesions. Right tympanic membrane is erythematous. There is erythema in right ear canal. There is only a small amount of the tympanic membrane on the right that is partially obscured from visualization. I am able to visualize the majority of the right tympanic membrane which is intact. NECK: Supple. No adenopathy or masses. No carotid bruits or JVD CHEST: Clear to auscultation. No respiratory distress. No wheezes rales or rhonchi HEART: Regular rate and rhythm. No murmur heard. Normal peripheral pulses. ABDOMEN: Soft, nontender, nondistended, normal active bowel sounds. EXTREMITIES: Normal range of motion. No edema. SKIN: Warm, dry, no rash. NEURO: No focal deficits. Alert and oriented x3. PSYCH: Normal mood and affect. Course Course Emergency Course: This is a 32-year-old female who presented for evaluation of right-sided otalgia. She has evidence of otitis media so will treat with Augmentin. I cannot visualize a very small portion of the right tympanic membrane so will cover with ear drops as she has had some discharge from the ear that would suggest rupture of the TM. She should follow up with her primary provider. She is advised to monitor child for any adverse r
== END 2023-06-30 13:00 | disposition home or self-care (01) ==
PROVIDERS: Emergency Provider Nurse Practitioner; PCP Family Medicine
DX: H66.91 Otitis media, unspecified, right ear (principal)
CPT/HCPCS: 99213; G0463

== ENCOUNTER 2024-03-07 08:53 | Emergency (ER) | payer OTHER, SELFPAY ==
[2024-03-07 09:05] VITALS: BP 105/66; PULSE 84; RESP 18; TEMP 36.9; O2SAT 100
--- NOTE | 2024-03-07 09:16 | ED.EYEPROB ---
HPI - Eye Problem General Chief complaint: Eye Problems Stated complaint: Eye Problem Time Seen by Provider: 03/07/24 09:16 Source: patient Mode of arrival: ambulatory Limitations: no limitations History of Present Illness HPI Narrative: 33-year-old female presented for complaint of left eye redness and itching/irritation over the past 2 days. Mostly to the inner eyelid. She denies eye pain, eye discharge, photophobia, visual changes, headache. No treatment prior to Pt is 5 weeks gestation chief complaint: eye pain Related Data Allergies Allergy/AdvReac Type Severity Reaction Status Date / Time No Known Allergies Allergy Verified 06/30/23 12:38 Review of Systems Review of Systems: CONSTITUTIONAL: Denies body aches, fever, chills EYES:Endorses swelling, redness and itching to left inner eye; Denies visual changes, discharge, FB sensation, photophobia ENT: Denies rhinorrhea, congestion, sore throat, or otalgia. CARDIOVASCULAR: Denies chest pain, palpitations RESPIRATORY: Denies cough or dyspnea. MUSCULOSKELETAL: Denies back pain, joint pain, or myalgia. NEUROLOGIC: Denies headache, numbness, tingling, or weakness. All systems reviewed & are unremarkable except as noted in HPI and below PMFSH Past Medical History Medical History No pertinent past medical history Surgical History Surgical History History of Family History Family History Mother Bladder disease Father Hypertension Social History Social History Smoking status: Never smoker Second hand tobacco smoke exposure: No Substance use: never Do You Feel Safe in your Home?: Yes Lack of Transportation: No Lack of Food: Never True Current Housing: I Have Housing Concerned About Future Housing: No Difficulty Paying Gas/Electric Bills: No Difficulty Paying for Meds: No Currently Unemployed: No Education: Associate Degree Difficulty w/ Childcare or Family Care: No Spiritual care concerns: No Comments At time of signature, I have reviewed and agree with nursing past medical, surgical, social and family history unless otherwise noted. Please see nursing chart for further information. There is no relevant family history pertinent to the presenting complaint Exam Narrative: GENERAL: Well-appearing HEAD: Normocephalic, atraumatic. EYES: mild inner left eye lid swelling/redness. No stye, No conjunctival injection or drainage. PERRLA, EOMI. Lid eversion shows no FB ENT: Mucous membranes pink and moist. No rhinorrhea. TMs normal bilaterally. Throat normal. Uvula midline. CHEST: Clear to auscultation. HEART: Regular rate and rhythm. SKIN: Warm, dry NEURO: No focal deficits. Alert and oriented x3 Course Course Emergency Course: Patient is aware of diagnosis, understands and agrees to treatment plan. Anticipatory guidance given. Patient agrees to follow-up as directed and is aware of reasons to seek care at the emergency department. Portions of this record may have been created with voice recognition software Level of Care: Express Care Visit Vital Signs Vital signs: Vital Signs Temperature 98.5 F 03/07/24 09:05 Pulse Rate 84 03/07/24 09:05 Respiratory Rate 18 03/07/24 09:05 Blood Pressure 105/66 03/07/24 09:05 Pulse Oximetry 100 03/07/24 09:05 Temperature 98.5 F 03/07/24 09:05 Pulse Rate 84 03/07/24 09:05 Respiratory Rate 18 03/07/24 09:05 Blood Pressure 105/66 03/07/24 09:05 Pulse Oximetry 100 03/07/24 09:05 MDM - Eye Problem MDM Narrative Medical decision making narrative: Discussed physical exam findings consistent with dermatitis, will provide Polytrim should she develop eye drainage and worsening of symptoms..
== END 2024-03-07 09:30 | disposition home or self-care (01) ==
PROVIDERS: Emergency Provider Nurse Practitioner Family; PCP Family Medicine
DX: L30.9 Dermatitis, unspecified (principal)
CPT/HCPCS: 99213; G0463

== ENCOUNTER 2024-08-26 16:30 | Observation (INO) | payer OTHER, SELFPAY ==
[2024-08-26 15:42] VITALS: BMI 26.7
--- NOTE | 2024-08-26 15:42 | OBADM ---
This patient, Krystyna Wilde, admitted to the OB room OB Post 116 for observation. Patient/family oriented to hospital policies and general routines including ID bracelet, bed and alarms, visiting hours, pain management, procedures, bathroom and other care routines, personal items, smoking policy, room service/diet, and visiting hours. Patient/Family are encouraged to report perceived risks to care and to ask questions if they do not understand what they are told or what they should do.
--- OUTSIDE RECORDS SUMMARY | 2024-08-26 17:57 | XMS_ITS | Clinical Summary ---
Author Organization [facility] [employer] Address [address] [place] [address] Care Team Providers Care Night Guard Name Role Phone Rosemary Manzano MD Primary Care Provider [phone] Source Comments [facility] [employer],non-owned Affiliates and Associated Physician Practices is amultiple site organization consisting of ambulatory clinics and hospital sitesin [place], [place] and [place]. This disclosure is being madepursuant to the Care Everywhere program and may not contain all information available regarding this patient. Last updated 18.[employer] Allergies No known active allergies Medications Be aware that medications may not be up to date on this document. Always verify current medications with the patient. No known medications Active Problems No known active problems Social History Tobacco Use Types Packs/Day Years Used Date Smoking Tobacco: Never Smokeless Tobacco: Never Tobacco Cessation:Counseling Given: Not Answered Alcohol Use Standard Drinks/Week Comments Not Currently 0 (1 standard drink = 0.6 oz pur e alcohol) Sex and Gender Information Value Date Recorded Sex Assigned at Not on file Gender Identity Not on file Sexual Orientation Not on file Last Filed Vital Signs Vital Sign Reading Time Taken Comments Blood Pressure - - Pulse - - Temperature - - Respiratory Rate - - Oxygen Saturation - - Inhaled Oxygen Concentration - - Weight 61.7 kg (136 lb) 06/06/2022 9:34 AM CIVIL PREPAREDNESS OFFICER Height 160 cm (5' 3 ) 06/06/2022 9:34 AM CIVIL PREPAREDNESS OFFICER Body Mass Index 24.09 06/06/2022 9:34 AM CIVIL PREPAREDNESS OFFICER Plan of Treatment Health Maintenance Due Date Last Done Comments PAP SMEAR 1990 HIV SCREENING 11/06/2007 HEPATITIS C SCREENING 11/01/2010 DTAP/TDAP/TD VACCINES (1 - Tdap) 11/06/2011 HEPATITIS B VACCINE (1 of 3 - 19+ 3-dose series) 11/06/2011 COVID-19 VACCINE (1 - 2023-2 5 season) 2024 INFLUENZA VACCINE (#1) 2024 DEPRESSION SCREENING 06/04/2024 ZOSTER VACCINE (1 of 2) 2042 HIB VACCINE Aged Out No longer eligi ble based on patient's age to complete this topic HPV VACCINE Aged Out No longer eligi ble based on patient's age to complete this topic MENINGOCOCCAL (Group B) VACC INE SHARED DECISION-MAKING Aged Out No longer eligibl e based on patient's age to complete this topic MENINGOCOCCAL GROUPS A/C/Y/W VACCINE Aged Out No longer eligible b ased on patient's age to complete this topic PNEUMOCOCCAL VACCINE Aged Out No long er eligible based on patient's age to complete this topic Care Teams Night Guard Relationship Specialty Start Date End Date Rosemary Manzano MD [address] [place] [id number] PCP - General 03/29/20
--- OUTSIDE RECORDS SUMMARY | 2024-08-26 17:58 | XMS_ITS ---
Author Organization [employer] [facility] Address [address] [place] [address] Care Team Providers Care Information Analyst Name Role Phone Catherine Nolasco Primary Care Provider [phone] Jessica Nunez REASON FOR VISIT Staph infection Medications Medication SIG (Take, Route, Frequency, Duration) Notes Start Date End Date Status Sulfamethoxazole-Trimetho prim 800-160 MG 1 tablet Orally twice a day for 10 days 09/07/2023 09/17/2023 Active Encounters Encounter Location Date Provider Diagnosis 2 [facility] [address] [place] [address] 09/07/2023 Jessica Trevino Staph infection B95.8 Assessments Encounter Date Diagnosis (ICD Code) Assessment Notes Treatment Notes Treatment Clinical Notes Section Notes 09/07/2023 Staph infection (ICD-10 - B95.8) Patient prescribed antibiotics for reported staph infection. Monitor site for increased redness or warmth. Patient advised it would be better to be seen in person. But barring that, please come into office or own PCP in 2-3 days for in person exam. She verbalized understanding. Plan Of Treatment Medication Medication Name Sig Start Date Stop Date Notes Sulfamethoxazole-Trimethopri m 800-160 MG 1 tablet Orally twice a day for 10 days 09/07/2023 09/17/2023 Next Appt Details Follow Up: 2 - 3 Days, Reaso n: If symptoms do not improve Progress Notes * Krystyna WILDEDOB:[birth year] (33 yo F)Acc No.[id number]:09/07/2023 Patient: Krystyna BAZZI Provider: Wilma Trevino :1990 A ge:32 Y S ex:Female Date:09/07/2023 [facility] [place] [place] [address] Pcp:Catherine Nolasoc Subjective: * Chief Complaints: * 1 . Staph infection . * HPI: T ransition of Care: TM call. Patient lives in [place] and consents to TM call. States she has what appears to be a skin infection caused (probably) by Staph aureus. * ROS: G eneral / Constitutional: Patient denies c hills, fatigue, fever, pain. P atient complains of S kin infection. * Medical History: Objective: * Vitals: * Examination: G eneral Examination: P atient is A&Ox3 while on the call. No video capabilities available to this provider. Assessment: * Assessment: 1. S taph infection - B95.8 (Primary) Patient prescribed antibioti cs for reported staph infection. Monitor site for increased redness or warmth. Patient advised it would be better to be seen in person. But barring that, please come into office or own PCP in 2-3 days for in person exam. She verbalized understanding. Plan: * Treatment: * Follow Up: 2 - 3 Days (Reason: If symptoms do not improve) * Billing Information: * Visit Code: 23103 Office Visit, New Pt., Level 3. Modifiers: 25 * Procedure Codes: * Electronic signature of Jessica Trevino APN on 08/26/2024 at 05:58 PM CDT Sign off status: Pending * Provider: Wilma Trevino Date: 0 09/07/2023 Generated for Héctor morfin/Sandee/Gary on: 0 08/26/2024 05:58 PM CDT History and Physical Notes * HPI (History of Present Illness) Category Sub-Category Detail Notes Category Not es Transition of Care TM call. Patient lives in [place] and consents to TM call. States she has what appears to be a skin infection caused (probably) by Staph aureus. Examination Category Sub-Category Detail Notes Category Not es General Examination Patient is A&Ox3 while on the call. No video capabilities available to this provider.
--- OUTSIDE RECORDS SUMMARY | 2024-08-26 17:58 | XMS_ITS | Clinical Summary ---
Author Organization [facility] [address] Address [address] [place] [address] Phone Care Team Providers Care Valve Grinder Name Role Phone Elías Echevarria MD Primary Care Provider [phone] Allergies No known active allergies Medications dicyclomine (BENTYL) 10 mg capsule Take 10 mg by mouth 8 Active triamcinolone (KENALOG) 0.1 % ointmentIndicat ions:Contact dermatitis due to urushiol Apply topically 2 (two) times a day as needed for irritation or rash 15 g 5 2 Active metoclopramide (REGLAN) 10 mg tablet Take 1 tablet (10 mg total) by mouth every 6 (six) hours 30 tablet 3 Active cyclobenzaprine (FLEXERIL) 10 mg tablet Take 1 tablet (10 mg total) by mouth 2 (two) times a day as needed for muscle spasms 20 tablet 4 Active Active Problems Problem Noted Date Diagnosed Date Dysuria in in first trimester 07/14/19 20 Poison pat dermatitis 10/31/2018 Surgical History Surgery Date Site/Laterality Comments ADENOIDECTOMY 06/04/2010 - 06/03/2011 Medical History Medical History Date Comments Urinary tract infection Family History Medical History Relation Name Comments Hypertension Father Relation Name Status Comments Father Social History Tobacco Use Types Packs/Day Years Used Date Smoking Tobacco: Never Smokeless Tobacco: Never Alcohol Use Standard Drinks/Week Comments Yes 2 (1 standard drink = 0.6 oz pur e alcohol) Occassionally Personal Safety Answer Date Recorded Have you ever been in or are you currently in a harmful physical or emotional relationship or is someone making you feel afraid or unsafe? Denies 12/03/2023 Comments Unknown Sex and Gender Information Value Date Recorded Sex Assigned at Not on file Legal Sex Female 9:10 PM TAPEMAN Gender Identity Not on file Sexual Orientation Not on file Occupation Industry Job Start Date Job End Date Not on file Not on file Not on file Not on file Obstetrics History Para Term AB IAB SAB Ectopic Multiple Livin g Live Births 3 1 Date Outcome GA Total Labor Labor/2nd/3rd Weight Sex Type Anes PTL Ora A1 A5 Name Clin 2012 AB 5w0d Last Filed Vital Signs Vital Sign Reading Time Taken Comments Blood Pressure 140/87 12/03/2023 5:47 AM CDT Pulse 92 12/03/2023 5:47 AM CDT Temperature 36.6 C (97.9 F) 12/03/2023 5:47 AM CDT Respiratory Rate 16 12/03/2023 5:47 AM CDT Oxygen Saturation 100% 12/03/2023 5:47 AM CDT Inhaled Oxygen Concentration - - Weight 61.2 kg (135 lb) 12/03/2023 5:47 AM CDT Height 160 cm (5' 3 ) 12/03/2023 5:47 AM CDT Body Mass Index 23.91 12/03/2023 5:47 AM CDT Plan of Treatment Health Maintenance Due Date Last Done Comments Depression Screening 1992 Hepatitis C Screening 1992 DTaP/Tdap/Td Vaccine (5 - Tdap) 11/06/2003 04/05/1994, 05/09/1993, 03/14/1993, Additional history exists Varicella Vaccines (1 of 2 - 13+ 2-dose series) 2005 Cervical Cancer Screening 07/31/2018 07/31/2017 Regular Well Visit/Exam 18-64 07/31/2018 07/31/2017 Influenza Vaccine (#1) 2024 Hepatitis B Screening Completed 1993 , 01/05/1993, 1992 HPV Vaccines Aged Out No longer eligi ble based on patient's age to complete this topic Pneumococcal vaccine <65 Aged Out No longer eligible based on patient's age to complete this topic Procedures Procedure Name Priority Date/Time Associated Diagnosis Comments THINPREP TIS PAP REFLEX HPV MRNA E6/E7, CHLAMYDIA/N.GONORRH OEAE Routine 07/31/2017 1:36 PM TAPEMAN Routine cervical smear Screening examination for venereal disease from Last 3 Months or Most Recently Relevant to Health Maintenance Results * THINPREP TIS PAP REFLEX HPV mRNA E6/E7, CHLAMYDIA/N.GONORRHOEAE (07/31/2017 1:36 PM TAPEMAN) Report status CANCELED [facility] Comment:Result canceled by t he ancillary CLINICAL INFORMATION: [facility] Comment:Information not prov ided LMP 07/12/17 [facility] Previous Pap NONE GIVEN [facility] Prev. Bx NONE GIVEN [facility] SOURCE: [facility] Comment:Cervix, Endocervix Pap, specimen adequacy [facility] Comment: Satisfactory for evaluation. Endocervical/transformation zone component present. Pap, general categorization [facility]CELED [facility] Comment:Result canceled by t he ancillary HPV interp [facility] Comment:Negative for intraep ithelial lesion or malignancy. Infection: CANCELED [facility] Comment:Result canceled by t he ancillary COMMENTS [facility] Comment: This Pap test has been evaluated with computer assisted technology. [facility] - Comment: DAVID ESPINO(ASCP) CT screening location: [place] [address] [place] [address] Review store gift wrap associate [facility]CELED [facility] Comment:Result canceled by t he ancillary Pathologist [facility]CELED [facility] Comment:Result canceled by t he ancillary C. trachomatis RNA NOT DETECTED NOT DETECTED [facility] N. gonorrhoeae RNA NOT DETECTED NOT DETECTED [facility] Comment [facility] - Comment: This test was performed using the APTIMA COMBO2 Assay ([employer] The analytical performance characteristics of this assay, when used to test SurePath specimens have been determined by [employer] [facility] 07/31/2017 1:36 PM TAPEMAN 08/01/2017 5:41 AM TAPEMAN Narrative Resulting Agency Comment Performing Organization Information: Site ID: Name: [facility] Address: [address] [place] [address] Director: Popeye Bernard MD us Milady Jason MD LAB PATHOLOGY ORDERAB LES Final Result [facility] [place] from Last 3 Months or Most Recently Relevant to Health Maintenance Insurance [facility] Care Teams Valve Grinder Relationship Specialty Start Date End Date Elías Echevarria MD [address] [place] [address] PCP - General Family Medicine 10/02/22
--- OUTSIDE RECORDS SUMMARY | 2024-08-26 17:58 | XMS_ITS | Patient Health Record ---
Author Organization [facility] Address [address] [place] [address] Care Team Providers Care Towel Weaver Name Role Phone Catherine Nolasco Primary Care Provider Jessica Nunez Unavailable [phone] Reason For Referral No Information Encounters Encounter Location Date Provider Diagnosis 2 [facility] [address] [place] [address] 09/07/2023 Jessica Trevino Staph infection B95.8 Assessments [...] exam. She verbalized understanding. Plan Of Treatment No Information Insurance Providers Payer Name Payer Address Payer Phone Subscriber Number Group Number Insured Name Patient Relationship to Insured Coverage Start Date Coverage End Date [place] [facility] [address] [address] [phone] [id number] Krystyna Wilde Self - patient is the insured
--- OUTSIDE RECORDS SUMMARY | 2024-08-26 17:58 | XMS_ITS | Data Portability ---
Author Organization [facility] KAYLYNNRacheal Montano Address [address] [place] [address] Care Team Providers Care Wiring Inspector Name Role Phone MINI GIBSON Roll Forming Machine Operator Assessment No assessment recorded. Plan of Treatment Reminders Order Date Submit Date Provider Last Modified By Organization Details Last Modified Time Details Appointments None recorded. Lab test, urine 2019 020 [email or web address] 23 In-Office Order, Internal Use Only DO Not Attach Compendium DO Not Attach Compendium, Do Not Delete/merge, [id number] 0 12:16:05 obstetric screen, serum or blood 2019 020 [facility], [address], [facility] [address], [place], [address], 0 12:36:17 urinalysis complete, reflex culture 2019 020 STE[facility], [address], [facility] [address], [place], [address], 0 12:36:18 drug screen, urine 2019 020 [facility], [address] [facility] [address], [place], [address], 0 12:36:17 hemoglobin S (hbs), presence, blood 2019 020 STELL[facility], [address], [address], [place], [address], 0 12:36:21 cf (cystic fibrosis) profile 02/25/ 2020 02/25/2 020 STELL[facility], [address], [address], [place], [address], 0 12:36:19 varicella zoster virus IgG Ab, QN, IA, serum 2019 [facility], [address], [address], [place], [address], 0 12:36:20 HIV 1+2 AB + HIV 1 p24 Ag, qualitative immunoassay , serum 2019 [facility], [address], [address], [place], [address], 0 12:36:19 Referral None recorded. Procedures None recorded. Surgeries None recorded. Imaging US, obstetric, 1st trimester 2019 STELLA Not available 0 13:52:56 Medication Orders None recorded. Patient TargetsNo targets recorded. Patient InstructionsNo instructions recorded. Reason for Referral None Reported. Results Created Date Observation Date Name Description Value Unit Range Abnormal Flag Note LastModifiedBy Organization Detail LastModifiedTime 07/29/19 20 07/30/2019 obste tric scree n, serum or blood HBsAg screen Negati ve negati ve Not Available [facility] ([facility]) [address] [place], [address], 08/05/2019 12:36:16 07/29/19 20 07/30/2019 obste tric scree n, serum or blood RPR Non Reacti ve non reacti ve Not Available [facility] ([facility]) [address] [place], [address], 08/05/2019 12:36:16 07/29/19 20 07/30/2019 obste tric scree n, serum or blood rubella antibodies, IgG <0.90 index immune >0.99 below low normal Non-i mmune <0.90 Equiv ocal 0.90 - 0.99 Immun e >0.99 Not Available [facility] ([facility]) [address] [facility], [place], [address], 08/05/2019 12:36:16 07/29/19 20 07/30/2019 obste tric scree n, serum or blood ABO grouping O Not Available [facility] ([facility]) [address] [place], [address], 08/05/2019 12:36:16 07/29/19 20 07/30/2019 obste tric scree n, serum or blood Rh factor Positi ve Pleas e note: Prior recor ds for this patie nt's ABO / Rh type are not avail able for addit ional verif icati on. Not Available [facility] ([facility]) [address] [facility], [place], [address], 08/05/2019 12:36:16 07/29/19 20 07/30/2019 obste tric scree n, serum or blood antibody screen Negati ve negati ve Not Available [facility] ([facility]) [address] [facility], [place], [address], 08/05/2019 12:36:16 07/29/19 20 07/30/2019 obste tric scree n, serum or blood WBC 10.1 x10e3 /uL 3.4-10 .8 Not Available [facility] ([facility]) [address] [place], [address], 08/05/2019 12:36:16 07/29/19 20 07/30/2019 obste tric scree n, serum or blood RBC 4.29 x10e6 /uL 3.77-5 .28 Not Available [facility] ([facility]) [address] [place], [address], 08/05/2019 12:36:16 07/29/19 20 07/30/2019 obste tric scree n, serum or blood hemoglobin 12.9 g/dL 11.1-1 5.9 Not Available [facility] ([facility]) [address] [facility], [place], [address], 08/05/2019 12:36:16 07/29/19 20 07/30/2019 obste tric scree n, serum or blood hematocrit 38.6 % 34.0-4 6.6 Not Available [facility] ([facility]) [address] [facility], [place], [address], 08/05/2019 12:36:16 07/29/19 20 07/30/2019 obste tric scree n, serum or blood MCV 90 fL 79-97 Not Available [facility] ([facility]) [address] [facility], [place], [address], 08/05/2019 12:36:16 07/29/19 20 07/30/2019 obste tric scree n, serum or blood MCH 30.1 pg 26.6-3 3.0 Not Available [facility] ([facility]) [address] [facility], [place], [address], 08/05/2019 12:36:16 07/29/19 20 07/30/2019 obste tric scree n, serum or blood MCHC 33.4 g/dL 31.5-3 5.7 Not Available [facility] ([facility]) [address] [facility], [place], [address], 08/05/2019 12:36:16 07/29/19 20 07/30/2019 obste tric scree n, serum or blood RDW 12.6 % 11.7-1 5.4 Not Available [facility] ([facility]) [address] [place], [address], 08/05/2019 12:36:16 07/29/19 20 07/30/2019 obste tric scree n, serum or blood platelets 255 x10e3 /uL 150-45 0 Not Available [facility] ([facility]) [address] [place], [address], 08/05/2019 12:36:16 07/29/19 20 07/30/2019 obste tric scree n, serum or blood neutrophils 75 % not estab. Not Available [facility] ([facility]) [address] [facility], [place], [address], 08/05/2019 12:36:16 07/29/19 20 07/30/2019 obste tric scree n, serum or blood lymphs 18 % not estab. Not Available [facility] ([facility]) [address] [facility], [place], [address], 08/05/2019 12:36:16 07/29/19 20 07/30/2019 obste tric scree n, serum or blood monocytes 6 % not estab. Not Available [facility] ([facility]) [address] [facility], [place], [address], 08/05/2019 12:36:16 07/29/19 20 07/30/2019 obste tric scree n, serum or blood eos 0 % not estab. Not Available [facility] ([facility]) [address] [facility], [place], [address], 08/05/2019 12:36:16 07/29/19 20 07/30/2019 obste tric scree n, serum or blood basos 0 % not estab. Not Available [facility] ([facility]) [address] [facility], [place], [address], 08/05/2019 12:36:16 07/29/19 20 07/30/2019 obste tric scree n, serum or blood immature cells BLACKSMITH HELPER Not Available [facility] ([facility]) [address] [place], [address], 08/05/2019 12:36:16 07/29/19 20 07/30/2019 obste tric scree n, serum or blood neutrophils (absolute) 7.5 x10e3 /uL 1.4-7. 0 above high normal Not Available [facility] ([facility]) [address] [place], [address], 08/05/2019 12:36:16 07/29/19 20 07/30/2019 obste tric scree n, serum or blood lymphs (absolute) 1.8 x10e3 /uL 0.7-3. 1 Not Available [facility] ([facility]) [address] [place], [address], 08/05/2019 12:36:16 07/29/19 20 07/30/2019 obste tric scree n, serum or blood monocytes(ab solute) 0.6 x10e3 /uL 0.1-0. 9 Not Available [facility] ([facility]) [address] [place], [address], 08/05/2019 12:36:16 07/29/19 20 07/30/2019 obste tric scree n, serum or blood eos (absolute) 0.0 x10e3 /uL 0.0-0. 4 Not Available [facility] ([facility]) [address] [place], [address], 08/05/2019 12:36:16 07/29/19 20 07/30/2019 obste tric scree n, serum or blood baso (absolute) 0.0 x10e3 /uL 0.0-0. 2 Not Available [facility] ([facility]) [address] [place], [address], 08/05/2019 12:36:16 07/29/19 20 07/30/2019 obste tric scree n, serum or blood immature granulocytes 1 % not estab. Not Available [facility] ([facility]) [address] [place], [address], 08/05/2019 12:36:16 07/29/19 20 07/30/2019 obste tric scree n, serum or blood immature grans (abs) 0.1 x10e3 /uL 0.0-0. 1 Not Available [facility] ([facility]) [address] [facility] [place], [address], 08/05/2019 12:36:16 07/29/19 20 07/30/2019 obste tric scree n, serum or blood NRBC BLACKSMITH HELPER Not Available [facility] ([facility]) [address] [facility], [place], [address], 08/05/2019 12:36:16 07/29/19 20 07/30/2019 obste tric scree n, serum or blood hematology comments: BLACKSMITH HELPER Not Available [facility] ([facility]) [address] [facility], [place], [address], 08/05/2019 12:36:16 07/29/19 20 07/29/2019 drug scree n, urine drug screen comment: Commen t This ricardo sis is perfo rmed by immun oassa y. Posit neris findi ngs are uncon firme d ricardo tical test resul ts; if resul ts do not suppo rt expec caesar clini anoop findi ng, confi rmati on by an alter ivan metho dolog y is recom joshua d. Patie nt metab olic varia bles, speci fic drug chemi stry, and speci men nallely cteri stics can affec t test outco me. Techn ical consu ltati on is avail able at mel shi [email or web address], or call toll free [phone]. Not Available [facility] ([facility]) [address] [facility], [place], [address], 08/05/2019 12:36:17 07/29/19 20 07/30/2019 drug scree n, urine amphetamines , urine Negati ve NG/mL cutoff =1000 Amphe tamin e test inclu arlen Amphe tamin e and Metha mphet amine . Not Available [facility] ([facility]) [address] [facility], [place], [address], 08/05/2019 12:36:17 07/29/19 20 07/30/2019 drug scree n, urine barbiturates Negati ve NG/mL cutoff =200 Not Available [facility] ([facility]) [address] [place], [address], 08/05/2019 12:36:17 07/29/19 20 07/30/2019 drug scree n, urine benzodiazepi aysha Negati ve NG/mL cutoff =300 Not Available [facility] ([facility]) [address] [place], [address], 08/05/2019 12:36:17 07/29/19 20 07/30/2019 drug scree n, urine cannabinoid Negati ve NG/mL cutoff =50 Not Available [facility] ([facility]) [address] [place], [address], 08/05/2019 12:36:17 07/29/19 20 07/30/2019 drug scree n, urine cocaine (metab.) Negati ve NG/mL cutoff =300 Not Available [facility] ([facility]) [address] [place], [address], 08/05/2019 12:36:17 07/29/19 20 07/30/2019 drug scree n, urine opiates Negati ve NG/mL cutoff =300 Opiat e test inclu arlen Codei ne, Morph ine, Huddleston morph one, Huddleston codon e. Not Available [facility] ([facility]) [address] [place], [address], 08/05/2019 12:36:17 07/29/19 20 07/30/2019 drug scree n, urine phencyclidin e Negati ve NG/mL cutoff =25 Not Available [facility] ([facility]) [address] [place], [address], 08/05/2019 12:36:17 07/29/19 20 07/30/2019 drug scree n, urine methadone Negati ve NG/mL cutoff =300 Not Available [facility] ([facility]) [address] [place], [address], 08/05/2019 12:36:17 07/29/19 20 07/30/2019 drug scree n, urine propoxyphene , urine Negati ve NG/mL cutoff =300 Not Available [facility] ([facility]) [address] [place], [address], 08/05/2019 12:36:17 07/29/19 20 07/30/2019 urina lysis compl ete, refle x cultu re specific gravity 1.006 1.005- 1.030 Not Available [facility] ([facility]) [address] [place], [address], 08/05/2019 12:36:18 07/29/19 20 07/30/2019 urina lysis compl ete, refle x cultu re pH 6.5 5.0-7. 5 Not Available [facility] ([facility]) [address] [place], [address], 08/05/2019 12:36:18 07/29/19 20 07/30/2019 urina lysis compl ete, refle x cultu re urine-color Yellow yellow Not Available [facility] ([facility]) [address] [place], [address], 08/05/2019 12:36:18 07/29/19 20 07/30/2019 urina lysis compl ete, refle x cultu re appearance Clear clear Not Available [facility] ([facility]) [address] [place], [address], 08/05/2019 12:36:18 07/29/19 20 07/30/2019 urina lysis compl ete, refle x cultu re WBC esterase Negati ve negati ve Not Available [facility] ([facility]) [address] [place], [address], 08/05/2019 12:36:18 07/29/19 20 07/30/2019 urina lysis compl ete, refle x cultu re protein Negati ve negati ve/tra ce Not Available [facility] ([facility]) [address] [place], [address], 08/05/2019 12:36:18 07/29/19 20 07/30/2019 urina lysis compl ete, refle x cultu re glucose Negati ve negati ve Not Available [facility] ([facility]) [address] [place], [address], 08/05/2019 12:36:18 07/29/19 20 07/30/2019 urina lysis compl ete, refle x cultu re ketones Negati ve negati ve Not Available [facility] ([facility]) [address] [place], [address], 08/05/2019 12:36:18 07/29/19 20 07/30/2019 urina lysis compl ete, refle x cultu re occult blood Negati ve negati ve Not Available [facility] ([facility]) [address] [place], [address], 08/05/2019 12:36:18 07/29/19 20 07/30/2019 urina lysis compl ete, refle x cultu re bilirubin Negati ve negati ve Not Available [facility] ([facility]) [address] [place], [address], 08/05/2019 12:36:18 07/29/19 20 07/30/2019 urina lysis compl ete, refle x cultu re urobilinogen ,semi-qn 0.2 mg/dL 0.2-1. 0 Not Available [facility] ([facility]) [address] [place], [address], 08/05/2019 12:36:18 07/29/19 20 07/30/2019 urina lysis compl ete, refle x cultu re nitrite, urine Negati ve negati ve Not Available [facility] ([facility]) [address] [place], [address], 08/05/2019 12:36:18 07/29/19 20 07/30/2019 urina lysis compl ete, refle x cultu re microscopic examination Commen t Micro scopi c follo ws if indic ated. Not Available [facility] ([facility]) [address] [place], [address], 08/05/2019 12:36:18 07/29/19 20 07/30/2019 urina lysis compl ete, refle x cultu re microscopic examination See below: Micro scopi c was indic ated and was perfo rmed. Not Available [facility] ([facility]) [address] [facility], [place], [address], 08/05/2019 12:36:18 07/29/19 20 07/30/2019 urina lysis compl ete, refle x cultu re WBC 0-5 /hpf 0 - 5 Not Available [facility] ([facility]) [address] [facility], [place], [address], 08/05/2019 12:36:18 07/29/19 20 07/30/2019 urina lysis compl ete, refle x cultu re RBC 0-2 /hpf 0 - 2 Not Available [facility] ([facility]) [address] [place], [address], 08/05/2019 12:36:18 07/29/19 20 07/30/2019 urina lysis compl ete, refle x cultu re epithelial cells (non renal) 0-10 /hpf 0 - 10 Not Available [facility] ([facility]) [address] [place], [address], 08/05/2019 12:36:18 07/29/19 20 07/30/2019 urina lysis compl ete, refle x cultu re epithelial cells (renal) BLACKSMITH HELPER Not Available [facility] ([facility]) [address] [facility] [place], [address], 08/05/2019 12:36:18 07/29/19 20 07/30/2019 urina lysis compl ete, refle x cultu re casts BLACKSMITH HELPER Not Available [facility] ([facility]) [address] [facility], [place], [address], 08/05/2019 12:36:18 07/29/19 20 07/30/2019 urina lysis compl ete, refle x cultu re cast type BLACKSMITH HELPER Not Available [facility] ([facility]) [address] [facility], [place], [address], 08/05/2019 12:36:18 07/29/19 20 07/30/2019 urina lysis compl ete, refle x cultu re crystals BLACKSMITH HELPER Not Available [facility] ([facility]) [address] [facility], [place], [address], 08/05/2019 12:36:18 07/29/19 20 07/30/2019 urina lysis compl ete, refle x cultu re crystal type BLACKSMITH HELPER Not Available [facility] ([facility]) [address] [facility], [place], [address], 08/05/2019 12:36:18 07/29/19 20 07/30/2019 urina lysis compl ete, refle x cultu re mucus threads Presen t not estab. Not Available [facility] ([facility]) [address] [facility], [place], [address], 08/05/2019 12:36:18 07/29/19 20 07/30/2019 urina lysis compl ete, refle x cultu re bacteria Few none seen/f ew Not Available [facility] ([facility]) [address] [facility], [place], [address], 08/05/2019 12:36:18 07/29/19 20 07/30/2019 urina lysis compl ete, refle x cultu re yeast BLACKSMITH HELPER Not Available [facility] ([facility]) [address] [facility], [place], [address], 08/05/2019 12:36:18 07/29/19 20 07/30/2019 urina lysis compl ete, refle x cultu re trichomonas BLACKSMITH HELPER Not Available [facility] ([facility]) [address] [facility], [place], [address], 08/05/2019 12:36:18 07/29/19 20 07/30/2019 urina lysis compl ete, refle x cultu re comment BLACKSMITH HELPER Not Available [facility] ([facility]) [address] [facility], [place], [address], 08/05/2019 12:36:18 07/29/19 20 07/30/2019 urina lysis compl ete, refle x cultu re urinalysis reflex Commen t This speci men will not refle x to a Urine Cultu re. Not Available [facility] ([facility]) [address] [facility], [place], [address], 08/05/2019 12:36:18 07/29/19 20 07/29/2019 cf (cyst ic fibro sis) profi le comment: Commen t The assay provi arlen infor matio n inten ded to be used for rosina er scree sherie in adult s of repro ducti ve age, as an aid in [facility] rn scree sherie, and as a confi rmato ry test for anoth er medic ally estab lishe d diagn osis in [facility] rns and child gianluca. The test is not indic ated for use in diagn ostic testi ng, pre-i mplan tatio n scree sherie, or for any stand -schuyler e diagn ostic purpo ses witho ut confi rmati on by anoth er medic ally estab lishe d diagn ostic produ ct or proce dure. Not Available [facility] ([facility]) [address] [facility], [place], [address], 08/05/2019 12:36:19 07/29/19 20 08/05/2019 cf (cyst ic fibro sis) profi le CF, screen Commen t: RESUL TS: Negat neris for 32 mutat ions ricardo zed INTER PRETA TION: This indiv idual is negat neris for the mutat ions ricardo zed. This negat neris resul t may need furth er inter preta tion depen ding on the clini anoop indic ation . This resul t reduc es but does not elimi ivan the risk to be a CF rosina er. COMME NTS: The detec tion rate varie s with [place] and is liste d below . The prese nce of an undet ected mutat ion in the CF gene canno t be ruled out. In the absen ce of famil y histo ry, the remai sherie risk that a perso n with a negat neris resul t could have at least one CF mutat ion is liste d in the table . If there is a famil y histo ry of CF, these risk figur es do not apply . As detai led infor breanne fox this indiv idual 's famil y histo ry would permi t a more accur ate asses sment of this indiv idual 's risk to be a rosina er of cysti c fibro sis, pleas e conta ct [facility] Servi shruti at [phone] for a shawn ed repor t. Mutat ion Detec tion Detec tion rates are based on mutat ion Rates among Ethni c frequ encie s in patie nts affec caesar with Group s cysti c fibro sis. Among indiv idual s with an atypi anoop or mild prese ntati on (e.g. conge nital absen ce of the vas defer ens, pancr eatit is) detec tion rates may vary from those provi ded here: Rosina er risk reduc tion when no famil y histo ry Detec tion [place] city Rate Manuel mendez 06/29 to 97% Jewis h Cauca ramana 06/28 to 90% (non- Hispa essence) Afric an-Am nikunj n to 69% Hispa essence 1/46 to 1/168 73% to 55% This inter preta tion is based on the clini anoop and famil y relat ionsh ip infor matio n provi ded and the curre nt under stand ing of the [facility] jane ics of this condi tion. MUTAT IONS RICARDO ZED: G85E V520F W1282 X 2183A A to G R117H G542X N1303 K 2184d Tunde R334W S549N 394de lTT 2789+ 5G to A R347H S549R 621+1 G to T 3120+ 1G to A R347P G551D 711+1 G to T 3659d elC A455E R553X 1078d elT 3849+ 10kbC to T Delta I507 R560T 1717- 1G to A 3876d Tunde Delta F508 R1162 X 1898+ 1G to A 3905i nsT METHO DS/LI MITAT IONS: DNA is isola caesar from the sampl e and teste d for the 32 CF mutat ions on the [employer] or[employer] (Taty nex). Regio ns of the CFTR gene are ampli fied enzym atica lly and subje cted to a solut ion-p hase multi plex allel e-spe cific prime r exten stanislav with subse quent hybri dizat ion to a bead array and fluor escen ce detec tion. Polym orphi sms F508C , I506V and I507V are inclu ded in this panel to rule out false posit neris delta F508 homoz ygote s. Refle x testi ng of 5T is inclu ded in the panel for R117H inter preta tion. False posit neris or negat neris resul ts may occur for reaso ns that inclu de jane ic varia nts, blood trans fusio ns, bone marro w trans plant ation , sara eous repre senta tion of famil y relat ionsh ips or conta minat ion of a sampl e with mater nal cells . REFER ENCES : 1. Updat es on Rosina er Scree sherie for Cysti c Fibro sis. (2011 ) Am J Ob Gynec ol 117(4 ):102 8-103 1 2. Wango n, et al. (2004 ) Jane Med 6:387 -91 3. Shahida reeves, et al. (2002 ) Jane Med 4:379 -391 4. Preco ncept ion and prena gavi rosina er luis m rehman for cysti c fibro sis: (2000 )ACOG .ACMG publi catio n Resul ts Relea sed By: Arthur Fernandez, Ph.D. , [facility] Repor t Relea sed By: Arthur Fernandez, Ph.D. , [facility] Not Available [facility] ([facility]) [address] [facility], [place], [address], 08/05/2019 12:36:19 07/29/1908/05/2019 cf (cyst ic fibro sis) profi lina pdf . Not Available [facility] ([facility]) [address] [facility], [place], [address], 08/05/2019 12:36:19 07/29/19 20 07/30/2019 HIV 1+2 AB + HIV 1 p24 Ag, quali tativ e immun oassa y, serum HIV screen 4TH generation wrfx Non Reacti ve non reacti ve Not Available [facility] ([facility]) [address] [facility], [place], [address], 08/05/2019 12:36:19 07/29/19 20 07/30/2019 varic mian zoste r virus IgG Ab, QN, IA, serum varicella zoster IgG 1463 index immune >165 Negat neris <135 Equiv ocal 135 - 165 Posit neris >165 A posit neris resul t gener ally indic ates expos ure to the patho gen or admin istra tion of speci fic immun oglob ulins , but it is not indic ation of activ e infec tion or stage of disea se. Not Available [facility] ([facility]) [address] [facility], [place], [address], 08/05/2019 12:36:20 07/29/19 20 07/31/2019 hemog lobin S (hbs) , prese nce, blood hemoglobin (HGB) solubility Negati ve negati ve Since a varie ty of condi tions and other abnor mal hemog lobin s in addit ion to Hemog lobin S may give false -posi tive resul ts, posit neris Hemog lobin Solub ility tests shoul d be confi rmed by hemog lobin fract ionat ion testi ng. Not Available [facility] ([facility]) [address], [place], [address], 08/05/2019 12:36:21 07/29/19 20 07/29/2019 pregn gertrudis test, urine HCG positi ve Not Available In-Office Order Internal Use Only DO Not Attach Compendium DO Not Attach Compendium, Do Not Delete/merge, [id number] 07/29/2019 11:26:38 08/20/19 20 08/19/2019 US, obste tric, 1st trime ster No observ ation record ed. [place] [id number] [facility] [address], [place], [address], 08/26/2019 10:05:50 Result Notes None recorded. Problems Name Problem SNOMED Code Status Onset Date Resolution Date Notes Provider Name and Address Organization Details Recorded Time [id number] Completed 020 10/08/2019 Yanet Boggs MA null, [place] 0 11:04:30 Problem Notes None recorded. Procedures Surgical History Date Name Laterality Status Provider Name and Address Organization Details Recorded Time 06/04/2009 tonsilecto my/adenoid s completed Susan Dorman [place] - [facility] 07/29/2019 11:22:03 Imaging Results Imaging Date Name Status LastModified by Organiz ation Details LastModified Time 08/19/2019 US, obstetric, 1st trimester completed [place] [id number] [facility] [address], [place], [address], 08/26/2019 10:05:50 Procedure Notes None recorded. Medical Equipment None Reported. Allergies No known drug allergies Medications Name Sig Start Date Stop Date Status Note LastModified by Organization Details LastModified Time active otc Not Available Not Avai lable Not Available Vitals Date Recorded Body weight Provider Name an d Address Organization Details Last Updated DateTime 07/29/2019 [id number] g Mini Gibson [facility] 2019 11:53:58 Date Recorded Body mass index (BMI) Body height Systolic blood pressure Diastolic blood pressure Provider Name and Address Organization Details Last Updated DateTime 07/29/2019 21 kg/m2 160.02 cm 110 mm[Hg] 82 mm[Hg] Susan Dandy [facility] 07/29/2019 11:25:02 Date Recorded Body height Provider Name an d Address Organization Details Last Updated DateTime 08/26/2019 160.02 cm Yanet Boggs MA [facility] 08/25 11:47:36 Social History Question Answer Notes LastModified by Organizat ion Details LastModified Time Tobacco Smoking Status Never Smoker Susan Dorman [facility], [facility] 07/29/2019 11:18:58 If You Are , What Was Your Level Of Alcohol Consumption Prior To ? Occasional [email or web address] Information not available 07/29/2019 Is Blood Transfusion Acceptable In An Emergency? Yes [email or web address] Information not available 07/29/2019 What Is Your Level Of Caffeine Consumption? None [email or web address] Information not available 07/29/2019 Live With Cats/exposure To Cat Litter No [email or web address] Information not available 07/29/2019 How Much Tobacco Do You Chew? None [email or web address] Information not available 07/29/2019 Are You Currently Employed? Yes [email or web address] Information not available 07/29/2019 What Type Of Diet Are You Following? REGULAR [email or web address] Information not available 07/29/2019 Which Illicit Or Recreational Drugs Have You Used? Denies [email or web address] Information not available 07/29/2019 Do You Or Have You Ever Used E-cigarettes Or Vape? Never Used Electronic Cigarettes Information not available 07/29/2019 Education 2 Year College [email or web address] Informatio n not available 07/29/2019 What Is Your Occupation? Self Employed [email or web address] Information not available 07/29/2019 Frequent Air Travel Yes Pt States She Does Not Fly Alot But Is Flying This Week Information not available 07/29/2019 Illicit Drugs Pre- Bhupendra [email or web address] Information not available 07/29/2019 Live Alone Or With Others? With Others Information not available 07/29/2019 Marital Status Single [email or web address] Informatio n not available 07/29/2019 How Many Children Do You Have? 0 [email or web address] Information not available 07/29/2019 Seat Belts Used Routinely Yes Information not available 07/29/2019 Are You Sexually Active? Yes Information not available 07/29/2019 Do You Have Smoke And Carbon Monoxide Detectors In Your Home? Yes [email or web address] Information not available 07/29/2019 Are You Passively Exposed To Smoke? No [email or web address] Information not available 07/29/2019 Do You Or Have You Ever Used Smokeless Tobacco? Never Used Smokeless Tobacco [email or web address] Information not available 07/29/2019 How Much Tobacco Do You Smoke? No [email or web address] Information not available 07/29/2019 Smoking Pre- No [email or web address] Information not available 07/29/2019 General Stress Level Medium [email or web address] Information not available 07/29/2019 Do You Use Sunscreen Routinely? Yes [email or web address] Information not available 07/29/2019 Sex: Unknown Functional Status Question Answer Note LastModified by Organization D etails LastModified Time What is your exercise level? None [email or web address] Information not available 07/29/2019 Mental Status None recorded. Family History Relationship Description Onset Age of this Age Resolved Age Notes LastModified by Organization Details LastModified Time Father No current problems or disability [email or web address] Not available 07/06 11:18:51 Mother No current problems or disability Not available 07/06 11:18:51 Medical History Condition Response Other N High Blood Pressure N Breast Cancer N Thyroid Problems N Kidney or Bladder Problems N GI Problems N Depression N Blood Clots N Lung Disease N Acne Y Breast Problem N Eating Disorder N Anemia N Anesthesia Complications N Headaches/Migraines N Anxiety Disorder N Diabetes N Ovarian Cancer N Muscle, Joint, or Bone Problems N Blood Transfusions N Seizures/Epilepsy N Polyps N Infertility N Acid Reflux (GERD) N Cancer N Abuse/Domestic Violence N Asthma N Endometriosis N High Cholesterol N Hepatitis N Liver Disease N Heart Disease N Pre-Eclampsia N Osteoporosis N Gynecological History Statement/Question Response Flow Moderate STIs/STDs N HPV Vaccine N Duration of Flow (days) 5 Most Recent Mammogram Age at Menarche 15 Current Control Method Sexually Active? Y Menses Monthly Y Date of Last Pap Smear Sexual Problems? N LMP Definite Obstetrics History GPAL:G 2 P 0 0 1 0 Type Value Multiple Births 0 Full Term 0 Induced 0 Spontaneous 1 Premature 0 Living 0 Ectopics 0 Total 2 Past Encounters Encounter ID Performer Location Encounter Start Date Encounter Closed Date Diagnosis/Indication Diagnosis SNOMED-CT Code Diagnosis ICD10 Code Diagnosis Note [id number] Mini Waller (SANDSTONE INSPECTOR REPAIRER) [address] [place] [address] 07/29/2019 10:39:27 07/30/2019 09:43:14 Missed period 40232775 N92.5 UPT positive, dwp. Routine an tenatal care 904336429 Z34.01 See ACOG form [id number] Mini Waller (SANDSTONE INSPECTOR REPAIRER) [address] [place] [address] 08/26/2019 10:38:17 08/27/2019 10:28:55 Routine care 099749407 Z34.81 See ACOG form Health Concerns Section Related Observation LastModified by Organization Detai ls LastModified Time None Recorded Concern Status LastModified by Organization Details LastModified Time None Recorded Advance Directives Directive None Recorded Payers Encounter Date Sequence Insurance Name Policy Number Policy Hurtado Covered Member ID Hurtado Member ID Guarantor Name 07/29/2019 1 [place] [id number] Krystyna Wilde [id number] Krystynapromise Wilde 08/26/2019 1 [place] [id number] Krystyna Halstad [id number] Krystynapromise Hodgesoner 08/26/2019 1 [place] [id number] Krystynapromise Wilde [id number] Krystyna Wilde Notes Date Note Type Note Provider Name and Address Organization Details Recorded Time 07/29/2019 text/html Pt. presents for confirmation of and initiation of care. She is taking PNVs already. Mini rodriguez, [place] - [facility] 07/29/2019 12:15:46 OBGyn Episode Ob Episode Information Episode Created Date Number of Fetuses Patient Bloodtype Patient rh Status Prepregnancy Weight lbs Domestic Partner Domestic Partner Phone Father Name Derrick Boat Operator Status 07/29/19 20 1 CLOSED Fetus Data First Name Last Name Admitted to NICU Weight (g) Sex Living Outcome Pediatric Complications Fetus ID Race Codes Race Delivery Type , Spontane ous [id number] Sergio Calculation Initial Sergio Date Initial Exam Date Initial Exam Provider Initial Ultrasound Date Last Menstrual Period Date Ultra Sound Weeks Gestation 0 Eighteen To Twenty Week Sergio Update Ultra Sound Date Fundal Height At Umbil Quickening Date Ultra Sound Latest Weeks Gestation Final Sergio Confirmed By Final Sergio Confirmed Date Final Sergio Date Ultra Sound Latest Days Gestation 0 0 Menstrual History Last Menstrual Date Menses Monthly On Bcp Conception Prior Menses Frequency Hcg Plus Date Menarche Onset Age Delivery Information Delivery Date Delivery Type Labor Anesthesia Weeks Gestation Incision Type Labor Labor Length Hrs Delivered By Post Complications Tubal Sterilization Discharge Date Comments 2 5 Discharge Information Feeding Method Contraceptive Method Maternal HG B and HCT Levels Ob Episode Information Episode Created Date Number of Fetuses Patient Bloodtype Patient rh Status Prepregnancy Weight lbs Domestic Partner Domestic Partner Phone Father Name Derrick Boat Operator Status 07/29/19 20 1 O Positive Bryan Richard CLOSED Fetus Data First Name Last Name Admitted to NICU Weight (g) Sex Living Outcome Pediatric Complications Fetus ID Race Codes Race Delivery Type [id number] Sergio Calculation Initial Sergio Date Initial Exam Date Initial Exam Provider Initial Ultrasound Date Last Menstrual Period Date Ultra Sound Weeks Gestation 03/12/2020 07/29/2019 [email or web address] 08/19/2019 06/06/2019 10 Eighteen To Twenty Week Sergio Update Ultra Sound Date Fundal Height At Umbil Quickening Date Ultra Sound Latest Weeks Gestation Final Sergio Confirmed By Final Sergio Confirmed Date Final Sergio Date Ultra Sound Latest Days Gestation 0 08/26/2019 03/12/20 20 0 Pre- Flowsheet Flowsheet Date 07/29/2019 Lepe Score Blood Edema Fundus Height Fundus Units Glucose Ketones Leukocytes Nitrite Labor Signs Protein Cervic Dilation Cervic Effacement Cervic Station Type Weight in lbs Pre/Post Dialysis Refused With clothes 118.525134706230 BP Diastolic BP Location Tested BP Systolic BP Type 82 110 sitting Fetus Heart Rate Present Fetus Movement Comments folder given. Pren atal labs ordered. Pt. wants to keep taking OTC PNVs. Dating US ordered. Flu shot discussed. Pt. wants to wait until next time. testing and visits discussed. Nutrition and hydration discussed. Pt. instructed to stop smoking marijuana. RTO 4 weeks for NOB visit. Flowsheet Date 08/26/2019 Lepe Score Blood Edema Fundus Height Fundus Units Glucose Ketones Leukocytes Nitrite Labor Signs Protein Cervic Dilation Cervic Effacement Cervic Station Type Weight in lbs Pre/Post Dialysis Refused BP Diastolic BP Location Tested BP Systolic BP Type Fetus Heart Rate Present Fetus Movement Comments Telephone visit due to COVID -19 pandemic. Pt. denies any problems. She is staying home. US c/w dates. labs reviewed. RTO 7 weeks. Quad screen and Anatomy US next visit, dwp. Menstrual History Last Menstrual Date Menses Monthly On Bcp Conception Prior Menses Frequency Hcg Plus Date Menarche Onset Age 0106/06/2019 true false 0 13 Genetic Screening And Infection History Question Response Note Patient's Age Will Be 35 Yea rs Or Older At Estimated Date of Delivery false Thalassemia (Polish, Turkmen, Mediterranean, Or Background): MCV < 80 true fob is Neural Tube Defect (Meningom yelocele, Spina Bifida, Or Anencephaly) false Congenital Heart Defect false Down Syndrome false Armando-Sachs (eg, Worship, Cajun, Belarusian-[place]) f alse Gertrudis Disease false Sickle Cell Disease Or Trait () false Hemophilia Or Other Blood Disorders false Muscular Dystrophy false Cystic Fibrosis false Picher's Chorea false Mental Retardation/Autism false Other Inherited Genetic Or Chromosomal Disorder false Maternal Metabolic Disorder (eg, Type 1 Diabetes, PKU) false Patient Or Baby's Father Had A Child With Defects Not Listed Above false Recurrent Loss, Or A Stillbirth false Medications (including Suppl ements, Vitamins, Herbs, OTC Drugs), Illicit/Recreational Drugs, Alcohol true Any Other Genetic History false Live With Someone With TB Or Exposed To TB false Patient Or Partner Has History Of Genital Herpes false Rash Or Viral Illness Since Last Menstrual Perio d false History Of STD, Gonorrhea, Chlamydia, HPV, Syphi lis false Other Infection History false History of HIV false History of Hepatitis false Prior GBS-infected child false Delivery Information Delivery Date Delivery Type Labor Anesthesia Weeks Gestation Incision Type Labor Labor Length Hrs Delivered By Post Complications Tubal Sterilization Discharge Date Comments Discharge Information Feeding Method Contraceptive Method Maternal HG B and HCT Levels
--- OUTSIDE RECORDS SUMMARY | 2024-08-26 17:58 | XMS_ITS | Clinical Summary ---
Author Organization [facility] Address [address] [place] [address] Phone Care Team Providers Care Hostler Helper Name Role Phone Benson Odell DPM Unavailable Milady Jason MD Unavailable Provider, None Primary Care Provider Unavailabl e Allergies No known active allergies Medications ondansetron (ZOFRAN-ODT) 4 MG TABLET DISPERSIBLEIndicati ons:Nausea and vomiting, intractability of vomiting not specified, unspecified vomiting type Take 1 Tab by mouth every 8 hours as needed for Nausea - 1st line. 10 Tab 8 Active dicyclomine (BENTYL) 10 MG CapsuleIndications: Periumbilical abdominal pain Take 1 Cap by mouth 4 times daily (before meals and nightly). 20 Cap 1 8 Active Active Problems Problem Noted Date Diagnosed Date Pain in left foot 12/28/2016 Mass of skin of left foot 12/28/2016 Immunizations Immunization Administration Dates Next Due DTP-Hib 04/05/1994, 3,03/14/1993,1992 Hepatitis B Vaccine, Pediatric/adolescent 1993,01/05/1993,1992 MMR Vaccine 11/20/1993 OPV 04/05/1994, 3,03/14/1993,1992 Family History Medical History Relation Name Comments Hypertension Father No Known Problems Mother Relation Name Status Comments Father Alive Mother Alive Social History Tobacco Use Types Packs/Day Years Used Date Smoking Tobacco: Never Smokeless Tobacco: Never Alcohol Use Standard Drinks/Week Comments Yes 0 (1 standard drink = 0.6 oz pur e alcohol) occasionally Comments No Sex and Gender Information Value Date Recorded Sex Assigned at Not on file Legal Sex Female 10:12 AM CAD DETAILER Gender Identity Not on file Sexual Orientation Not on file Last Filed Vital Signs Vital Sign Reading Time Taken Comments Blood Pressure 104/58 11/08/2021 11:56 AM CDT Pulse 87 11/08/2021 11:56 AM CDT Temperature 36.7 C (98.1 F) 11/08/2021 11:56 AM CDT Respiratory Rate 16 11/08/2021 11:56 AM CDT Oxygen Saturation 99% 11/08/2021 11:56 AM CDT Inhaled Oxygen Concentration - - Weight 56.7 kg (125 lb) 11/08/2021 11:56 AM CDT Height 160 cm (5' 3 ) 10/08/2017 3:55 PM CDT Body Mass Index 22.14 10/08/2017 3:55 PM CDT Plan of Treatment Health Maintenance Due Date Last Done Comments Hepatitis C Virus (HCV) Screening 1992 DTaP/Tdap/Td Immunization (5 - Tdap) 11/06/1999 04/05/1994, 05/09/1993, 03/14/1993, Additional history exists Pap Smear 2013 Cervical Cancer Screening (CCS) 2022 HPV/Cotest 2022 Influenza Immunization (#1) 2024 SARS-COV-2 Immunization ( season) 2024 Respiratory Syncytial Virus (RSV) Immunization (Adult) (1 - 1-dose 75+ series) 11/06/2067 Hepatitis B Immunization Completed 994, 01/05/1993, 1992 Meningococcal Immunization (ACWY) Aged Out No longer eligible based on patient's age to complete this topic Pneumococcal Immunization Combined Aged Out No longer eligible based on patient's age to complete this topic Rotavirus Immunization Aged Out No lo nger eligible based on patient's age to complete this topic Insurance MEDICAID [employer] Care Teams Hostler Helper Relationship Specialty Start Date End Date Provider, None [place] PCP - General 11/18/20 Benson Odell DPM Consulting Physician Podiatry 12/28/16 Milady Jason MD [address] [place] [address] Consulting Physician Obstetrics & Gynecology 10/08/17
--- OUTSIDE RECORDS SUMMARY | 2024-08-26 17:58 | XMS_ITS | Referral Summary ---
Author Organization [facility] [address] Address [address] [place] [address] Phone Care Team Providers Care Furnace Builder Name Role Phone Elías Echevarria MD Primary Care Provider [phone] Allergies No known active allergies Medications dicyclomine [...] trimester 07/14/19 20 Poison pat dermatitis 10/31/2018 Social History Tobacco Use Types Packs/Day Years [...] on file Legal Sex Female 9:10 PM LOADING CHECKER Gender Identity Not on file Sexual Orientation Not on file Occupation Industry Job Start Date Job End Date Not on file Not on file Not on file Not on file Last Filed Vital Signs [...] 12/03/2023 5:47 AM CDT Plan of Treatment Not on file Procedures Procedure Name Priority Date/Time Associated Diagnosis Comments THINPREP TIS PAP REFLEX HPV MRNA E6/E7, CHLAMYDIA/N.GONORRH OEAE Routine 07/31/2017 1:36 PM LOADING CHECKER Routine cervical smear Screening examination for venereal disease from Last 3 Months or Most Recently Relevant to Health Maintenance Results * THINPREP TIS PAP REFLEX HPV mRNA E6/E7, CHLAMYDIA/N.GONORRHOEAE (07/31/2017 1:36 PM LOADING CHECKER) Report status CANCELED [facility] Comment:Result canceled by john goodwin ancillary CLINICAL INFORMATION: [facility] [...] [facility] Comment:Result canceled by john goodwin ancillary HPV interp [facility] Comment:Negative for intraep ithelial lesion or malignancy. Infection: CANCELED [facility] Comment:Result canceled by john goodwin ancillary COMMENTS [facility] Comment: This Pap test has been evaluated with computer assisted technology. [facility] - Comment: KMY, CT(ASCP) CT screening location: [place] [address] [address] [place] [address] Review rubber down CANCELED [facility] - Comment:Result canceled by t he ancillary Pathologist CANCELED [facility] - Comment:Result canceled by t christa ancillary C. trachomatis RNA NOT DETECTED NOT DETECTED [facility] N. gonorrhoeae RNA NOT DETECTED NOT DETECTED [facility] Comment [facility] Comment: This test was performed using the APTIMA COMBO2 Assay ([employer] The analytical performance characteristics of this assay, when used to test SurePath specimens have been determined by [employer]. Fluid 07/31/2017 1:36 PM LOADING CHECKER 08/01/2017 5:41 AM LOADING CHECKER Narrative Resulting Agency Comment Performing Organization Information: Site ID: Name: [facility] Address: [facility] [place] [address] Director: Popeye Bernard MD Milady Jason MD LAB PATHOLOGY ORDERAB LES Final Result [place], [place] from Last 3 Months or Most Recently Relevant to Health Maintenance Insurance [facility] Care Teams Furnace Builder Relationship Specialty Start Date End Date Elías Echevarria MD [address] [address] [address] [place] [address] [address] PCP - General Family Medicine 10/02/22
--- OUTSIDE RECORDS SUMMARY | 2024-08-26 17:58 | XMS_ITS | Data Portability ---
Author Organization 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 Discussed plan. [email or web address] Not available 07/16/2024 17:49:49 08/13/2024 08/13/2024 Patient is __28_weeks . Discussed plan. [email or web address] Not available 08/13/2024 16:52:27 Plan of Treatment Reminders Order Date Submit Date Provider Last Modified By Organization Details Last Modified Time Details Appointments OB ROUTINE 2024 10:15A M Charlene Murray CNM Not available Not available Not available U/S OB GROWTH 2024 11:00A M ULTRASOUND Not available Not available Not available OB ROUTINE 2024 11:45A M Charlene Murray CNM Not available Not available Not available Lab None recorde d. Referral None recorde d. Procedures None recorde d. Surgeries None recorde d. Imaging US, obstetr ic, follow- up 2024 025 [email or web address] [address], [address], [place], [address], 08/13/2024 18:21:50 US, obstetr ic, follow- up 2024 025 [email or web address] [address], [address], [place], [address], 07/16/2024 21:43:51 US, obstetr ic, 2nd or 3rd trimest er 2024 025 [email or web address] , [address], [address], [place], [address], 06/18/2024 19:57:23 Medication Orders None recorde d. Patient TargetsNo targets recorded. Patient InstructionsNo instructions recorded. Reason for Referral None Reported. Results Created Date Observation Date Name Description Value Unit Range Abnormal Flag Note LastModifiedBy Organization Detail LastModifiedTime 08/14/1908/13/2024 HEMAT OCRIT (HCT) HCT 31.7 % (based on docume nted legal sex) 34.0-[address] [facility] (Lab) [address], [place], [address], 08/14/2024 13:44:15 08/14/19 25 08/13/2024 HEMOG LOBIN (HGB) HGB 11.2 g/dL (based on docume nted legal sex) 11.6-[address] [facility] (Lab) [address], [place], [address], 08/14/2024 13:44:16 08/14/19 25 08/13/2024 GTT - GESTA SALEEM L SCREE N, ACOG OB glucose, 1 hour screen 118 mg/dL 70-135 Not Available [facility] (Lab) [address] [place], [address], 08/14/2024 13:44:16 08/14/19 25 08/13/2024 HIV 1/2 ANTIG EN/AN TIBOD Y, REFLE X CONFI RMATI ON HIV antigen/anti body Nonrea ctive nonrea ctive HIV-1 antig en and HIV-1 /HIV- 2 antib odies were not detec caesar. No labor atory evide nce of HIV infec tion. Not Available [facility] (Lab) [address], [place], [address], 08/14/2024 13:44:17 08/14/19 25 08/13/2024 RPR SCREE N, REFLE X TITER /CONF IRMAT ION RPR qualitative Nonrea ctive nonrea ctive Not Available [facility] (Lab) [address], [place], [address], 08/14/2024 13:44:17 06/18/19 25 06/18/2024 US, obste tric, 2nd or 3rd trime ster No observ ation record ed. [facility] [place] [address], [place], [address], 06/18/2024 18:17:49 06/18/19 25 06/18/2024 US, obste tric, follo w-up No observ ation record ed. [email or web address] [address], [place], [address], 06/19/2024 15:59:46 07/16/19 25 07/17/2024 US, obste tric, follo w-up No observ ation record ed. [facility] [place] [address], [place], [address], 07/17/2024 12:15:25 07/16/19 25 07/16/2024 US, obste tric, follo w-up No observ ation record ed. [email or web address] [address], [place], [address], 07/22/2024 15:39:17 08/14/19 25 08/13/2024 US, obste tric, follo w-up No observ ation record ed. [facility] [address], [place], [address], 08/13/2024 17:57:05 08/14/19 08/13/2024 US, obste tric, follo w-up No observ ation record ed. [email or web address] [address], [place], [address], 08/13/2024 23:48:17 Result Notes None recorded. Problems Name Problem SNOMED Code Status Onset Date Resolution Date Notes Provider Name and Address Organization Details Recorded Time Pregnanc y 88977111 Completed 202205/14/2023 Raiza Davis null, [facility] 4 12:34:14 Deliveri es by [id number] Completed desires Tarik Oviedo null, [facility] 3 11:07:15 Past pregnanc y history of section 957143813 Active 2022 Jessica Cornelius MD [address], [place], [address], [facility] 3 22:24:12 Pregnanc y 47605339 Active 2023 Raiza Davis null, [facility] 4 12:34:14 Past pregnanc y history of gestatio nal hyperten stanislav 178252176 Active start Claude Murray CNM [address], [place], [address], [facility] 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 5 15:56:30 Disorder of placenta 458907688 Active Bilobed placenta serial growth Karlyjody Wang null, [facility] 5 15:56:30 Pregnanc y 23347435 Completed 201904/16/2020 Raiza Davis null, [facility] 4 12:34:14 Problem Notes None recorded. Procedures Surgical History Date Name Laterality Status Provider Name and Address Organization Details Recorded Time 4 Date of Last Pap Smear completed Raiza Davis [facility] 04/02/2024 17:18:39 3 SECTION (SURG) completed Maci Schroeder [facility] 06/19/2023 22:41:25 0 section completed Raiza Davis [facility] 09/17/2020 11:14:55 0 tonsilectomy/ adenoids completed Raiza Davis [facility] 04/23/2024 12:33:56 Imaging Results Imaging Date Name Status LastModified by Organiz ation Details LastModified Time 06/18/2024 US, obstetric, 2nd or 3rd trimester completed emile [place] [address], [place], [address], 06/18/2024 18:17:49 06/18/2024 US, obstetric, follow-up completed [email or web address] [address], [place], [address], 06/19/2024 15:59:46 07/17/2024 US, obstetric, follow-up completed emile [place] [address], [place], [address], 07/17/2024 12:15:25 07/16/2024 US, obstetric, follow-up completed [email or web address] [address], [place], [address], 07/22/2024 15:39:17 08/13/2024 US, obstetric, follow-up completed [email or web address] [place] [address], [place], [address], 08/13/2024 17:57:05 08/13/2024 US, obstetric, follow-up completed [email or web address] [address], [place], [address], 08/13/2024 23:48:17 Procedure Notes None recorded. Medical Equipment None Reported. Allergies No known drug allergies Medications Name Sig Start Date Stop Date Status Note LastModified by Organization Details LastModified Time cyclobenz aprine 10 mg tablet 04/02 completed Not Available Not Available Not Available amoxicill in 500 mg capsule TAKE 1 CAPSULE BY MOUTH EVERY 12 HOURS FOR 7 DAYS 04/02 completed Not Available Not Available Not Available doxycycli ne hyclate 100 mg capsule take 1 capsule (100MG) by oral route 2 times every day for 10 days 08/05 completed Prescrib ed Elsewher e: No Locat ion: [facility] odify By: selina wellington DateTime : 07/28/19 12 09:45:00 AM Not Available Not Available Not Available Zithromax 1 gram oral packet take 1 packet by oral route dissolve d in 2 ounces of water as a single dose 09/17 completed Prescrib ed Elsewher e: No Locat ion: [facility] odify By: selina Diamond ter DateTime : 01/10/20 14 10:00:00 AM Not Available Not Available Not Available hydrocodo ne 5 mg-acetam inophen 325 mg tablet TAKE 1 TABLET BY MOUTH EVERY 6 HOURS 06/08 completed Not Available Not Available Not Available ondansetr on HCl [address] 1 TABLET UNDER TONGUE AND LET DISSOLVE EVERY 4-6 HOURS NEEDED FOR NAUSEA 01/17 completed Not Available Not Available Not Available prednison e 5 mg tablet 04/02 completed Not Available Not Available Not Available metronida zole 500 mg tablet Take 1 tablet every 12 hours by oral route. 09/17 completed Not Available Not Available Not Available sulfameth oxazole 800 mg-trimet hoprim 160 mg tablet TAKE 1 TABLET BY MOUTH TWICE DAILY FOR 10 DAYS 04/02 completed Not Available Not Available Not Available triamcino lone acetonide 0.1 % topical cream APPLY TOPICALL Y TO THE AFFECTED AREA TWICE DAILY FOR 14 DAYS 09/25 completed Not Available Not Available Not Available oxycodone -acetamin ophen 5 mg-325 mg tablet TAKE 1 TABLET BY MOUTH EVERY 6 HOURS 06/08 completed Not Available Not Available Not Available cephalexi n 500 mg capsule TAKE 1 CAPSULE BY MOUTH EVERY 12 HOURS FOR 7 DAYS 06/08 completed Not Available Not Available Not Available triamcino lone acetonide 0.1 % topical ointment APPLY TOPICALL Y TO THE AFFECTED AREA TWICE DAILY NEEDED FOR IRRITATI ON OR RASH 09/25 completed Not Available Not Available Not Available polymyxin B sulfate 10,000 unit-trim ethoprim 1 mg/mL eye drops INSTILL 1 DROP IN LEFT EYE EVERY 3 HOURS WHILE AWAKE FOR 7 DAYS. DO NOT EXCEED 6 DOSES IN 24 HOURS 04/02 completed Not Available Not Available Not Available ibuprofen 600 mg tablet 09/17 completed Not Available Not Available Not Available methylpre dnisolone 4 mg tablets in a dose pack FOLLOW PACKAGE DIRECTIO NS 09/25 completed Not Available Not Available Not Available Zoloft 100 mg tablet take 1 tablet by oral route every day 01/09 completed Prescrib ed Elsewher e: Yes [facility] By: carmen garrido DateTime : 07/28/19 12 09:45:00 AM Not Available Not Available Not Available ondansetr on 4 mg disintegr ating tablet 2023 active Not Available Not Available Not Avai lable Necon 0.5/35 (28) 0.5 mg-35 mcg tablet Take 1 tablet every day by oral route. 04/20 completed Not Available Not Available Not Available doxycycli ne hyclate 100 mg tablet TK 1 T PO BID 09/17 completed Not Available Not Available Not Available Rocephin 500 mg solution for injection inject (500MG) by intramus cular route every 12 hours 09/17 completed Prescrib ed Elsewher e: No Locat ion: [facility] odify By: tgingric h Lobo wellington DateTime : 01/10/20 14 10:00:00 AM Not Available Not Available Not Available amoxicill in 875 mg-potass ium clavulana te 125 mg tablet TAKE 1 TABLET BY MOUTH EVERY 12 HOURS 04/02 completed Not Available Not Available Not Available Depo-Prov era 150 mg/mL intramusc ular syringe inject 1 millilit er (150MG) by intramus cular route every 3 months 01/09 completed Prescrib ed Elsewher e: No Locat ion: [facility] odify By: carmen garrido DateTime : 07/28/19 12 09:45:00 AM Not Available Not Available Not Available nitrofura ntoin monohydra te/macroc rystals 100 mg capsule TAKE 1 CAPSULE BY MOUTH EVERY 12 HOURS FOR 5 DAYS 06/18 completed Not Available Not Available Not Available Cymbalta 60 mg capsule,d elayed release take 1 capsule by oral route every day 01/09 completed Prescrib ed Elsewher e: Yes Loca tion: [facility] odify By: carmen garrido DateTime : 07/28/19 12 09:45:00 AM Not Available Not Available Not Available 09/17 completed Not Available Not Available Not Available butalbita l-acetami nophen-ca ffeine 50 mg-300 mg-40 mg capsule Take 1 capsule PO q4-6 hours. Not to exceed 6 in 24 hours 01/17 completed Not Available Not Available Not Available Lo Loestrin Fe 1 mg-10 mcg (24)/10 mcg (2) tablet take 1 tablet by oral route every day 01/09 completed Prescrib ed Elsewher e: Yes Loca tion: [facility] odify By: carmen garrido DateTime : 07/28/19 12 09:45:00 AM Not Available Not Available Not Available Vitals Date Recorded Body weight Body mass index (BMI) Body height Systolic blood pressure Diastolic blood pressure Provider Name and Address Organization Details Last Updated DateTime 06/18/2024 13336.37 758 g 23.7 kg/m2 160.02 cm 101 mm[Hg] 65 mm[Hg] Raiza Davis [facility] 18:10:06 Date Recorded Body weight Body mass index (BMI) Body height Systolic blood pressure Diastolic blood pressure Provider Name and Address Organization Details Last Updated DateTime 07/16/2024 79144.52 417 g 25 kg/m2 160.02 cm 107 mm[Hg] 70 mm[Hg] Raiza Davis [facility] 17:50:18 Date Recorded Body weight Body mass index (BMI) Body height Systolic blood pressure Diastolic blood pressure Provider Name and Address Organization Details Last Updated DateTime 08/13/2024 79691.67 076 g 26.2 kg/m2 160.02 cm 105 mm[Hg] 68 mm[Hg] Raiza Davis [facility] 16:27:52 Social History Question Answer Notes LastModified by Organizat ion Details LastModified Time Tobacco Smoking Status Never Smoker Melissa [email or web address], [facility] 12/20/2022 16:34:04 What Is Your Level Of Alcohol Consumption? None [email or web address] Information not available 09/25/2022 If You Are , What Was Your Level Of Alcohol Consumption Prior To ? Occasional [email or web address] Information not available 12/20/2022 Are You Blind Or Do You Have Difficulty Seeing? No [email or web address] Information not available 09/17/2020 What Is Your Level Of Caffeine Consumption? Occasional [email or web address] Information not available 09/17/2020 In The 14 Days Before Symptom Onset, Have You Had Close Contact With A Laboratory-confir med COVID-19 While That Case Was Ill? No [email or web address] Information not available 09/17/2020 In The 14 Days Before Symptom Onset, Have You Had Close Contact With A Person Who Is Under Investigation For COVID-19 While That Person Was Ill? No Information not available 09/17/2020 Have You Been To An Area Known To Be High Risk For COVID-19? No [email or web address] Information not available 09/17/2020 Are You Deaf Or Do You Have Serious Difficulty Hearing? No [email or web address] Information not available 09/17/2020 What Type Of Diet Are You Following? REGULAR [email or web address] Information not available 09/17/2020 Do You Or Have You Ever Used E-cigarettes Or Vape? Never Used Electronic Cigarettes [email or web address] Information not available 12/20/2022 What Was The Date Of Your Most Recent Tobacco Screening? 07/16/2024 [email or web address] Information not available 07/16/2024 Have You Ever Been Counseled For Unhealthy Alcohol Use? No [email or web address] Information not available 12/20/2022 Do You Use Your Seat Belt Or Car Seat Routinely? Yes [email or web address] Information not available 09/17/2020 Do You Have Smoke And Carbon Monoxide Detectors In Your Home? Yes [email or web address] Information not available 09/17/2020 Do You Or Have You Ever Used Smokeless Tobacco? Never Used Smokeless Tobacco [email or web address] Information not available 12/20/2022 How Much Tobacco Do You Smoke? No [email or web address] Information not available 01/09/2020 Do You Feel Stressed (tense, Restless, Nervous, Or Anxious, Or Unable To Sleep At Night)? [id number] [email or web address] Information not available 09/17/2020 Do You Use Any Illicit Or Recreational Drugs? No [email or web address] Information not available 09/17/2020 Do You Use Sunscreen Routinely? Yes [email or web address] Information not available 09/17/2020 Has Tobacco Cessation Counseling Been Provided? No [email or web address] Information not available 12/20/2022 Do You Or Have You Ever Used Any Other Forms Of Tobacco Or Nicotine? No [email or web address] Information not available 12/20/2022 Sex: Unknown Functional Status Question Answer Note LastModified by Organizat ion Details LastModified Time Do you have difficulty walking or climbing stairs? No Information not available 12/20/2022 Are you able to walk? YESWOREST [email or web address] Information not available 09/17/2020 Are you able to care for yourself? Yes [email or web address] Information not available 12/20/2022 Do you have difficulty dressing or bathing? No [email or web address] Information not available 12/20/2022 What is your exercise level? Occasional Information not available 01/09/2020 Mental Status None recorded. Family History Relationship Description Onset Age of this Age Resolved Age Notes LastModified by Organization Details LastModified Time Mother Anemia [email or web address] Not available 01/17/2023 17:30:54 Mother Cyst of ovary [email or web address] Not available 2023 16:39:36 Mother Seizure disorder [email or web address] Not available 2023 16:39:36 Brother Asthma [email or web address] Not availabl e 01/17/2023 17:30:54 Maternal Grandmother Cyst of ovary [email or web address] Not available 2023 16:39:37 Sister Cyst of ovary [email or web address] Not available 2023 16:39:37 Medical History Condition Response Allergies (Food, seasonal, environmental ) N Other N Drug/Latex Allergies/Reactions N Blood Transfusion N Breast Cancer N Dermatologic Disorders N Lung Disease N Defects or Inherited Disease N Breast Problem N Gestational Diabetes N Hematologic disorders N Anesthesia Complications N History of STI N Deep Vein Thrombosis N Polycystic ovary syndrome N Anxiety Disorder N Autoimmune disease N Arthritis N Polyps N Infertility N Acid Reflux (GERD) N History of abnormal pap N Cancer N Varicosities N Stroke N Neurologic/Epilepsy N Endometriosis N High Cholesterol N Fibromyalgia N Headaches N Kidney Disease N Heart Problems N Thyroid Problems N Kidney or Bladder Problems N GI Problems N Eating Disorder N Anemia N Art (IVF or FET) N Psychiatric Illness N Ovarian Cancer N Diabetes N Pulmonary (TB, Asthma) N Hepatitis/Liver Disease N No Past Medical History N Eczema N Urinary Tract Infection N Abuse/Domestic Violence N Asthma N Trauma/Violence N Depression/ depression N Heart Disease N Pre-Eclampsia N Hypertension N Osteoporosis N Thrombophilias N Gynecological History Statement/Question Response Date of Last Colonoscopy Date of Last Mammogram Date of LMP 01/29/2024 Date of DEXA bone scan Date of Last Pap Smear 04/02/2024 Current Control Method Desired Control Method None LMP Definite Obstetrics History GPAL:G 4 P 2 0 1 2 Type Value Full Term 2 Spontaneous 1 Living 2 Total 4 Past Encounters Encounter ID Performer Location Encounter Start Date Encounter Closed Date Diagnosis/Indication Diagnosis SNOMED-CT Code Diagnosis ICD10 Code Diagnosis Note [id number] rEen Kenny MD [place] [address] [address] 10/14/2019 10:36:30 10/14/2019 12:05:01 screening 508553298 Z36.89 Routine an tenatal care 554809748 Z34.82 [id number] [facility] [address],[place] [address] 10/30/2019 13:48:31 10/30/2019 16:30:13 screening for malformation 191796984 Z36.3 [id number] [address],[place] [address] 10/30/2019 13:48:54 10/30/2019 16:55:27 [id number] [place] [address],[place] [address] 11/06/2019 16:47:31 11/14/2019 13:54:36 Migraine 96445452 G43.909 Fioricet rx sent Pain in ro und ligament in 1246718652 3001032 O26.899 Pain is likely either round ligament or pulled muscle. We discussed option of trying a maternity belt. She'll let us know if pain isn't better within a few days and that may be next step [id number] [facility] [address],[place] [address] 11/27/2019 16:29:07 11/28/2019 11:21:37 Routine care 008272180 Z34.92 [id number] Eren Kenny MD [place] [address],[place] [address] 12/25/2019 11:35:10 12/25/2019 12:48:38 Routine care 115996895 Z34.82 [id number] Charlene Murray CNM [place] [address],[place] [address] 01/09/2020 14:43:14 01/09/2020 15:30:40 Routine care 909844241 Z34.93 [id number] Charlene Murray CNM [place] [address],[place] [address] 01/26/2020 12:43:08 01/27/2020 16:56:26 Routine care 517326708 Z34.93 [id number] Charlene Murray CNM [place] [address],[place] [address] 02/13/2020 15:43:37 02/15/2020 22:06:27 Routine care 433561544 Z34.93 [id number] Eren Kenny MD [place] [address],[place] [address] 02/20/2020 15:44:40 02/20/2020 16:21:19 Routine care 508246021 Z34.82 [id number] Eren Kenny MD [place] [address],[place] [address] 02/27/2020 17:32:55 03/01/2020 15:00:33 Routine care 334649733 Z34.82 [id number] Charlene Murray [facility] [address],[place] [address] 03/05/2020 15:28:13 03/05/2020 16:04:50 Routine care 979271572 Z34.93 [id number] Charlene Murray [facility] [address],[place] [address] 03/12/2020 16:29:11 03/15/2020 15:41:35 Routine care 518864413 Z34.93 [id number] Cinthya Kelsi [facility] [address],[place] [address] 03/18/2020 15:04:14 03/18/2020 16:13:15 Post-term of 40 to 42 weeks 8653657032 9101 O48.0 [id number] Ngozi Terrie [place] [address],[place] [address] 03/18/2020 15:05:38 03/18/2020 16:04:51 Routine care 887629302 Z34.92 [id number] Eren Kenny MD [place] [address],[place] [address] 03/27/2020 11:43:31 03/27/2020 13:40:45 Postoperative care 009101351 Z48.89 This patient is a 29-year-ol d female presents forpostopf ollow-up. She is 1 weekpostop from a delivery. Her incision is clean dry and intact. Her pain is moderate and she would like pain management continued. Her baby is well. The patient's mood is good. Her bleeding is slowing down. She will follow up in 3 weeks. [id number] Charlene Murray [facility] [address],[place] [address] 04/16/2020 11:29:07 04/16/2020 14:53:58 Endometritis 88915768 N85.00 care 41369765 8 Z39.2 [id number] Charlene Murray [facility] [address],[place] [address] 04/20/2020 11:27:02 04/20/2020 17:30:08 Acute endometritis 30994119 N71.0 [id number] [facility] [address],[place] [address] 04/26/2020 16:56:09 04/26/2020 18:06:08 Pain in pelvis 05793142 R10.2 [id number] [facility] [address],[place] [address] 09/17/2020 11:02:52 09/17/2020 11:56:50 Contraception care management 658996562 Z30.9 [id number] [facility] [address],[place] [address] 09/25/2022 13:54:22 09/25/2022 14:28:26 [id number] Ngozi Falcon [place] [address],[place] [address] 09/25/2022 13:54:53 09/26/2022 11:58:59 Amenorrhea 35084588 N91.2 test positive 793562422 Z32.01 Gynecologi c examination 95497184 Z01.419 Z11.51 Risk factors addressed: Tobacco Cessation, Safe Sexual Practices, environmen gavi, work hazards, travel restrictio ns, seat belt use.Eat a health well balanced diet, avoid alcohol, tobacco, and street drugs.Enga ge in daily low impact exercise, avoid temperatur e extremes, and cat, rodent, and bird feces.Avoi d travel to areas where zika virus is a concern.Of fered cf/sma/nip t. Desires at 12 weeks. Handouts given and discussed with patient.Ch ildbirth classes recommende d.New OB sheet given.If previous , counseling .Pt verbalizes that she understand s the importance of above instructio ns.All questions were answered.P atient reminded to have annual well woman examinatio n and address preventati [facility] . [id number] [facility] [address],[place] [address] 10/23/2022 16:25:45 10/23/2022 17:48:54 screening 535539979 Z36.82 [id number] Eren Kenny MD [place] [address],[place] [address] 10/23/2022 16:26:27 10/24/2022 14:49:41 Normal in multigravida 2347159929 38160 Z34.81 Z3A.11 Routine an tenatal care 318136486 Z34.82 [id number] [facility] [address],[place] [address] 11/24/2022 16:23:34 11/24/2022 17:14:50 [id number] [facility] [address],[place] [address] 11/24/2022 16:23:55 11/24/2022 17:23:39 Routine care 652906744 Z34.93 Nausea and vomiting 1693 1999 R11.2 [id number] Gema Lin [place] [address],[place] [address] 12/20/2022 16:33:34 12/20/2022 17:55:16 screening for malformation 563251515 Z36.3 [id number] [facility] [address],[place] [address] 12/20/2022 16:33:55 12/20/2022 18:01:17 Routine care 206559143 Z34.93 [id number] [facility] [address],[place] [address] 01/17/2023 17:06:20 01/17/2023 18:50:02 Routine care 408940575 Z34.93 [id number] [facility] [address],[place] [address] 01/23/2023 17:00:20 01/24/2023 15:07:50 Spotting per vagina in [id number] O26.852 Z3A.24 [id number] Jessica Cornelius MD [place] [address],[place] [address] 02/14/2023 11:59:10 02/15/2023 16:09:55 Routine care [id number] Z34.82 Past pregn gertrudis history of section [id number] Z98.890 [id number] [facility] [address],[place] [address] 02/14/2023 12:00:03 02/14/2023 12:36:09 Uterine size for dates discrepancy [id number] O26.843 Z3A.27 [id number] Charlene [facility] [address],[place] [address] 02/28/2023 18:01:17 03/01/2023 17:45:14 Routine care [id number] Z34.93 [id number] [facility] [address],[place] [address] 03/14/2023 14:20:03 03/14/2023 15:14:06 Uterine size for dates discrepancy [id number] O26.843 Z3A.31 [id number] [facility] [address],[place] [address] 03/14/2023 14:20:34 03/14/2023 15:50:28 Routine care [id number] Z34.93 [id number] [facility] [address],[place] [address] 03/28/2023 16:27:12 03/28/2023 17:10:08 Routine care [id number] Z34.93 [id number] Kierra Valente [place] [address],[place] [address] 1 04/11/2023 15:58:46 04/11/2023 16:53:20 Uterine size for dates discrepancy [id number] O26.843 Z3A.35 [id number] [facility] [address],[place] [address] 04/11/2023 15:59:07 04/11/2023 16:53:28 Routine care [id number] Z34.93 [id number] [facility] [address],[place] [address] 1 04/18/2023 16:54:50 04/19/2023 08:56:41 Routine care [id number] Z34.93 [id number] [facility] [address],[place] [address] 04/25/2023 18:02:24 04/28/2023 13:25:29 Routine care [id number] Z34.93 [id number] [facility] [address],[place] [address] 05/02/2023 16:43:41 05/02/2023 17:14:47 Routine care [id number] Z34.93 [id number] [facility] [address] [place] [address] 05/09/2023 11:48:57 05/09/2023 12:53:39 Routine care [id number] Z34.93 Urinary symptoms [id number] R39.9 [id number] Eren Kenny MD [place] [address],[place] [address] 05/16/2023 16:25:41 05/16/2023 16:28:01 [id number] Eren Kenny MD [place] [address],[place] [address] 05/18/2023 12:04:34 05/18/2023 12:43:50 Urinary symptoms [id number] R39.9 Postoperative pain [id number] 9007 G89.18 This patient is a 32-year-ol d female who presents for postop follow-up. She is 1 week postop from a delivery. Her incision is clean dry and intact. She has no complaints . Her bleeding is minimal. She denies any nausea, vomiting, fever, chills. She denies any chest pain or shortness of breath. Her baby is doing well. Her mood is good. Continues to have pain. We will continue pain management [id number] Raiza Davis [place] [address],[place] [address] 06/08/2023 11:10:04 06/08/2023 13:40:06 care [id number] Z39.2 f/u wwe september 2023 [id number] [facility] [address],[place] [address] 04/02/2024 16:39:44 04/02/2024 17:45:48 Amenorrhea [id number] N91.2 pap up to dateprecau tions and educationf /u 12 week new ob and first looknipt and labs at 10 weeksrevie wed US Venereal d isease screening 036731905 Z11.3 Nausea and vomiting 1693 2000 R11.2 Gynecologi c examination 17344975 Z01.419 [id number] Gema Lin [place] [address],[place] [address] 04/02/2024 16:39:31 04/02/2024 17:05:07 [id number] Kierra Valente [place] [address],[place] [address] 04/23/2024 11:31:00 04/23/2024 11:54:46 screening [id number] Z36.82 Z3A.12 [id number] [facility] [address],[place] [address] 04/23/2024 11:32:41 04/23/2024 12:46:43 Gestation period, 12 weeks 24710713 Z3A.12 Routine an tenatal care [id number] Z34.93 [id number] [facility] [address],[place] [address] 06/18/2024 16:49:22 06/19/2024 04:31:03 screening for malformation 705070455 Z36.3 Z3A.20 [id number] [facility] [address],[place] [address] 06/18/2024 16:49:54 06/18/2024 18:28:48 Gestation period, 20 weeks 48428636 Z3A.20 continue vitamin [id number] [facility] [address],[place] [address] 07/16/2024 16:59:02 07/16/2024 17:59:04 Placental condition affecting management of mother 188523169 O43.92 Z3A.24 [id number] Charelne [facility] [address],[place] [address] 07/16/2024 16:59:19 07/16/2024 18:01:51 Gestation period, 24 weeks [id number] Z3A.24 continue vitamin [id number] [facility] [address],[place] [address] 08/13/2024 15:30:28 08/13/2024 16:14:31 Bilobate placenta [id number] O43.199 Z3A.28 [id number] [facility] [address],[place] [address] 08/13/2024 15:30:51 08/13/2024 16:54:44 Gestation period, 28 weeks [id number] Z3A.28 continue vitamin Health Concerns Section Related Observation LastModified by Organization Detai ls LastModified Time None Recorded Concern Status LastModified by Organization Details LastModified Time None Recorded Advance Directives Directive None Recorded Payers Encounter Date Sequence Insurance Name Policy Number Policy Hurtado Covered Member ID Hurtado Member ID Guarantor Name 06/18/2024 1 [facility] ON OR AFTER 12/02/20 (MEDICAID REPLACEMENT - HMO) Krystyna Blairggoner [id number] Krystyna Blairggoner 07/16/2024 1 [facility] ON OR AFTER 12/02/20 (MEDICAID REPLACEMENT - HMO) Krystyna Bledsoe [id number] Krystyna Blariggoner 07/16/2024 1 [facility] ON OR AFTER 12/02/20 (MEDICAID REPLACEMENT - HMO) Krystyna Andry [id number] Krystyna Blairggoner 08/13/2024 1 [facility] ON OR AFTER 12/02/20 (MEDICAID REPLACEMENT - HMO) Krystyna Blairggoner [id number] Krystyna Blairggoner 08/13/2024 1 [facility] ON OR AFTER 20 (MEDICAID REPLACEMENT - HMO) Krystyna Blairggoner [id number] Krystyna Blairggoner OBGyn Episode Ob Episode Information Episode Created Date Number of Fetuses Patient Bloodtype Patient rh Status Prepregnancy Weight lbs Domestic Partner Domestic Partner Phone Father Name Cardiology Clinical Nurse Specialist Status 10/14/19 20 1 O Positive 118 CLOSED Fetus Data First Name Last Name Admitted to NICU Weight (g) Sex Living Outcome Pediatric Complications Fetus ID Race Codes Race Delivery Type 2891.64 9 M true Full Term 1355 Primary Sergio Calculation Initial Sergio Date Initial Exam Date Initial Exam Provider Initial Ultrasound Date Last Menstrual Period Date Ultra Sound Weeks Gestation 03/12/2020 10/14/2019 08/19/2019 06/06/2019 10 Eighteen To Twenty Week Sergio Update Ultra Sound Date Fundal Height At Umbil Quickening Date Ultra Sound Latest Weeks Gestation Final Sergio Confirmed By Final Sergio Confirmed Date Final Sergio Date Ultra Sound Latest Days Gestation 0 [email or web address] 10/14/2019 03/12/20 20 0 Pre- Flowsheet Flowsheet Date 10/14/2019 Lepe Score Blood Edema Fundus Height Fundus Units Glucose Ketones Leukocytes Nitrite Labor Signs Protein Cervic Dilation Cervic Effacement Cervic Station 18 trace Type Weight in lbs Pre/Post Dialysis Refused Weight 125.292163023125 BP Diastolic BP Location Tested BP Systolic BP Type 69 132 Fetus Heart Rate Present A 145 Fetus Movement A Yes Comments Flowsheet Date 10/30/2019 Lepe Score Blood Edema Fundus Height Fundus Units Glucose Ketones Leukocytes Nitrite Labor Signs Protein Cervic Dilation Cervic Effacement Cervic Station Type Weight in lbs Pre/Post Dialysis Refused BP Diastolic BP Location Tested BP Systolic BP Type Fetus Heart Rate Present Fetus Movement Comments Flowsheet Date 10/30/2019 Lepe Score Blood Edema Fundus Height Fundus Units Glucose Ketones Leukocytes Nitrite Labor Signs Protein Cervic Dilation Cervic Effacement Cervic Station none 20 Type Weight in lbs Pre/Post Dialysis Refused Weight 127.249367778696 BP Diastolic BP Location Tested BP Systolic BP Type 66 101 sitting Fetus Heart Rate Present A 150 Fetus Movement Comments Pt doing well. No complaints . I did discuss short nasal bone on u/s. I would like to schedule mfm consult. Pt case sent to [facility] to schedule. Flowsheet Date 11/06/2019 Lepe Score Blood Edema Fundus Height Fundus Units Glucose Ketones Leukocytes Nitrite Labor Signs Protein Cervic Dilation Cervic Effacement Cervic Station trace Type Weight in lbs Pre/Post Dialysis Refused Weight 129.116328875991 BP Diastolic BP Location Tested BP Systolic BP Type 65 104 Fetus Heart Rate Present Fetus Movement Comments glucose negative See note (p roble visit for LLQ pain and migraine) Flowsheet Date 11/27/2019 Lepe Score Blood Edema Fundus Height Fundus Units Glucose Ketones Leukocytes Nitrite Labor Signs Protein Cervic Dilation Cervic Effacement Cervic Station 24 trace Type Weight in lbs Pre/Post Dialysis Refused Weight 134.825706862479 BP Diastolic BP Location Tested BP Systolic BP Type 72 L arm 111 sitting Fetus Heart Rate Present A 140 Fetus Movement A Yes Comments Pt doing well. No complaints . Having a boy Rayray . Flowsheet Date 12/25/2019 Lepe Score Blood Edema Fundus Height Fundus Units Glucose Ketones Leukocytes Nitrite Labor Signs Protein Cervic Dilation Cervic Effacement Cervic Station 28 Type Weight in lbs Pre/Post Dialysis Refused Weight 138.301948235236 BP Diastolic BP Location Tested BP Systolic BP Type 77 118 Fetus Heart Rate Present A 145 Fetus Movement A Yes Comments Flowsheet Date 01/09/2020 Lepe Score Blood Edema Fundus Height Fundus Units Glucose Ketones Leukocytes Nitrite Labor Signs Protein Cervic Dilation Cervic Effacement Cervic Station 31 Type Weight in lbs Pre/Post Dialysis Refused Weight 140.426893754688 BP Diastolic BP Location Tested BP Systolic BP Type 67 104 Fetus Heart Rate Present A 144 Fetus Movement Comments reviewed precautio ns Flowsheet Date 01/26/2020 Lepe Score Blood Edema Fundus Height Fundus Units Glucose Ketones Leukocytes Nitrite Labor Signs Protein Cervic Dilation Cervic Effacement Cervic Station 31 Type Weight in lbs Pre/Post Dialysis Refused BP Diastolic BP Location Tested BP Systolic BP Type 76 122 Fetus Heart Rate Present A 155 Fetus Movement Comments precautions Flowsheet Date 02/13/2020 Lepe Score Blood Edema Fundus Height Fundus Units Glucose Ketones Leukocytes Nitrite Labor Signs Protein Cervic Dilation Cervic Effacement Cervic Station neg trace 36 trace Type Weight in lbs Pre/Post Dialysis Refused Weight 148.366895538636 BP Diastolic BP Location Tested BP Systolic BP Type 69 115 Fetus Heart Rate Present A 140 Fetus Movement A Yes Comments patient is having swelling, carpel tunnel pain, right jaw pain, cramping and BH contractions, gbs done precautions Flowsheet Date 02/20/2020 Lepe Score Blood Edema Fundus Height Fundus Units Glucose Ketones Leukocytes Nitrite Labor Signs Protein Cervic Dilation Cervic Effacement Cervic Station 37 trace Type Weight in lbs Pre/Post Dialysis Refused Weight 148.787476120172 BP Diastolic BP Location Tested BP Systolic BP Type 77 R arm 115 sitting Fetus Heart Rate Present A 145 Fetus Movement A Yes Comments Flowsheet Date 02/27/2020 Lepe Score Blood Edema Fundus Height Fundus Units Glucose Ketones Leukocytes Nitrite Labor Signs Protein Cervic Dilation Cervic Effacement Cervic Station 38 trace Type Weight in lbs Pre/Post Dialysis Refused Weight 149.962311763642 BP Diastolic BP Location Tested BP Systolic BP Type 81 R arm 115 sitting Fetus Heart Rate Present A 145 Fetus Movement A Yes Comments Flowsheet Date 03/05/2020 Lepe Score Blood Edema Fundus Height Fundus Units Glucose Ketones Leukocytes Nitrite Labor Signs Protein Cervic Dilation Cervic Effacement Cervic Station 39 trace 1cm 50% -3 Type Weight in lbs Pre/Post Dialysis Refused Weight 150.489687075861 BP Diastolic BP Location Tested BP Systolic BP Type 79 L arm 117 sitting Fetus Heart Rate Present A 145 Fetus Movement A Yes Comments labor/preg precautions Flowsheet Date 03/12/2020 Lepe Score Blood Edema Fundus Height Fundus Units Glucose Ketones Leukocytes Nitrite Labor Signs Protein Cervic Dilation Cervic Effacement Cervic Station neg none trace 1cm 50% -3 Type Weight in lbs Pre/Post Dialysis Refused Weight 150.627354849340 BP Diastolic BP Location Tested BP Systolic BP Type 83 133 Fetus Heart Rate Present A 140 Fetus Movement A Yes Comments patient states that having c ontractions, cramping, bleeding after being checked Sunday, labor precaution Flowsheet Date 03/18/2020 Lepe Score Blood Edema Fundus Height Fundus Units Glucose Ketones Leukocytes Nitrite Labor Signs Protein Cervic Dilation Cervic Effacement Cervic Station Type Weight in lbs Pre/Post Dialysis Refused BP Diastolic BP Location Tested BP Systolic BP Type Fetus Heart Rate Present Fetus Movement Comments Flowsheet Date 03/18/2020 Lepe Score Blood Edema Fundus Height Fundus Units Glucose Ketones Leukocytes Nitrite Labor Signs Protein Cervic Dilation Cervic Effacement Cervic Station trace neg Type Weight in lbs Pre/Post Dialysis Refused Weight 152.219889688425 BP Diastolic BP Location Tested BP Systolic BP Type 100 139 sitting Fetus Heart Rate Present A 145 Fetus Movement A Yes Comments Elevated bp. Pt did have a m igraine yesterday. With the elevation in bp and since she is 40w6d I would recommend MIL. Pt agreed. Cervix1.5/50/-2. Sent over for pitocin induction. Flowsheet Date 03/27/2020 Lepe Score Blood Edema Fundus Height Fundus Units Glucose Ketones Leukocytes Nitrite Labor Signs Protein Cervic Dilation Cervic Effacement Cervic Station Type Weight in lbs Pre/Post Dialysis Refused Weight 134.075646484951 BP Diastolic BP Location Tested BP Systolic BP Type 75 R arm 111 sitting Fetus Heart Rate Present Fetus Movement Comments Flowsheet Date 04/16/2020 Lepe Score Blood Edema Fundus Height Fundus Units Glucose Ketones Leukocytes Nitrite Labor Signs Protein Cervic Dilation Cervic Effacement Cervic Station Type Weight in lbs Pre/Post Dialysis Refused Weight 133.257202631003 BP Diastolic BP Location Tested BP Systolic BP Type 72 104 Fetus Heart Rate Present Fetus Movement Comments Flowsheet Date 04/20/2020 Lepe Score Blood Edema Fundus Height Fundus Units Glucose Ketones Leukocytes Nitrite Labor Signs Protein Cervic Dilation Cervic Effacement Cervic Station Type Weight in lbs Pre/Post Dialysis Refused BP Diastolic BP Location Tested BP Systolic BP Type Fetus Heart Rate Present Fetus Movement Comments Menstrual History Last Menstrual Date Menses Monthly On Bcp Conception Prior Menses Frequency Hcg Plus Date Menarche Onset Age 0106/06/2019 Genetic Screening And Infection History Question Response Note Mental Retardation/Autism false Patient's Age Will Be 35 Years Or Older At Estim ated Date of Delivery false Thalassemia (Yi, South African, Mediterranean, Or Background): MCV < 80 false Neural Tube Defect (Meningomyelocele, Spina Bifi da, Or Anencephaly) false Congenital Heart Defect false Down Syndrome false Armando-Sachs (eg, Christianity, Cajun, Citizen Of [place]) f alse Gertrudis Disease false Sickle Cell Disease Or Trait () false Hemophilia Or Other Blood Disorders false Muscular Dystrophy false Cystic Fibrosis false [place]'s Chorea false Intellectual Disability/Autism false If Yes, Was Person Tested For Fragile X? false Other Inherited Genetic Or Chromosomal Disorder false Maternal Metabolic Disorder (eg, Type 1 Diabetes , PKU) false Patient Or Baby's Father Had A Child With Defects Not Listed Above false Recurrent Loss, Or A Stillbirth false Medications (including Suppl ements, Vitamins, Herbs, OTC Drugs), Illicit/Recreational Drugs, Alcohol false If Yes, Agent(s) And Strength/Dosage false Any Other Genetic History false Live With Someone With TB Or Exposed To TB false Patient Or Partner Has History Of Genital Herpes false Rash Or Viral Illness Since Last Menstrual Perio d false History Of STD, Gonorrhea, Chlamydia, HPV, Syphi lis false Other Infection History false History of HIV false History of Hepatitis false Prior GBS-infected child false Hemoglobinopathy Or Carrier false Other Structural Defect false Recent Travel History Outside of Country false Delivery Information Delivery Date Delivery Type Labor Anesthesia Weeks Gestation Incision Type Labor Labor Length Hrs Delivered By Post Complications Tubal Sterilization Discharge Date Comments 0 40.6 Low Transvers e [email or web address] GHTN Discharge Information Feeding Method Contraceptive Method Maternal HG B and HCT Levels Ob Episode Information Episode Created Date Number of Fetuses Patient Bloodtype Patient rh Status Prepregnancy Weight lbs Domestic Partner Domestic Partner Phone Father Name Cardiology Clinical Nurse Specialist Status 11/06/19 20 1 CLOSED Fetus Data First Name Last Name Admitted to NICU Weight (g) Sex Living Outcome Pediatric Complications Fetus ID Race Codes Race Delivery Type , Spontane ous 1955 Sergio Calculation Initial Sergio Date Initial Exam [...] Complications Tubal Sterilization Discharge Date Comments 2 Discharge Information Feeding Method Contraceptive Method Maternal HG B and HCT Levels Ob Episode Information Episode Created Date Number of Fetuses Patient Bloodtype Patient rh Status Prepregnancy Weight lbs Domestic Partner Domestic Partner Phone Father Name Cardiology Clinical Nurse Specialist Status 03/26/20 20 1 DELETED Sergio Calculation Initial Sergio Date Initial Exam [...] Post Complications Tubal Sterilization Discharge Date Comments 0 40 GHTN Discharge Information Feeding Method Contraceptive Method Maternal HG B and HCT Levels Ob Episode Information Episode Created Date Number of Fetuses Patient Bloodtype Patient rh Status Prepregnancy Weight lbs Domestic Partner Domestic Partner Phone Father Name Cardiology Clinical Nurse Specialist Status 10/24/19 23 1 O Positive 124 Bryan Richard CLOSED Fetus Data First Name Last Name Admitted to NICU Weight (g) Sex Living Outcome Pediatric Complications Fetus ID Race Codes Race Delivery Type 3299.88 18 F true Full Term Repeat Problems Problem Notes declines, Flu, covid, tdap, rsv Problem Name Start Date End Date Resolution Snomed Code Not e Deliveries by 04 desires Sergio Calculation Initial Sergio Date Initial Exam Date Initial Exam Provider Initial Ultrasound Date Last Menstrual Period Date Ultra Sound Weeks Gestation 05/10/2023 09/25/2022 09/25/2022 08/03/2022 7 Eighteen To Twenty Week Sergio Update Ultra Sound Date Fundal Height At Umbil Quickening Date Ultra Sound Latest Weeks Gestation Final Sergio Confirmed By Final Sergio Confirmed Date Final Sergio Date Ultra Sound Latest Days Gestation 10/24/19 23 12 [email or web address] 10/23/2022 05/10/20 23 0 Pre-marvin Flowsheet Flowsheet Date 10/23/2022 Lepe Score Blood Edema Fundus Height Fundus Units Glucose Ketones Leukocytes Nitrite Labor Signs Protein Cervic Dilation Cervic Effacement Cervic Station neg none 12 none trace Type Weight in lbs Pre/Post Dialysis Refused Weight 120.893196817771 BP Diastolic BP Location Tested BP Systolic BP Type 72 108 Fetus Heart Rate Present A 145 Fetus Movement A No Comments this patient is a 31-year-ol d 3 para 1011 at 11 weeks gestation who presents for initial care. She has no complaints, she has no problems. She has history previous delivery. Otherwise, her medical history, obstetric history, social history unremarkable. She has been thinking a repeat but is still uncertain. She will begin routine care. Talked about care in detail. She talked about vaccines and routine care. Flowsheet Date 11/24/2022 Lepe Score Blood Edema Fundus Height Fundus Units Glucose Ketones Leukocytes Nitrite Labor Signs Protein Cervic Dilation Cervic Effacement Cervic Station Type Weight in lbs Pre/Post Dialysis Refused BP Diastolic BP Location Tested BP Systolic BP Type Fetus Heart Rate Present Fetus Movement Comments Flowsheet Date 11/24/2022 Lepe Score Blood Edema Fundus Height Fundus Units Glucose Ketones Leukocytes Nitrite Labor Signs Protein Cervic Dilation Cervic Effacement Cervic Station neg none none trace Type Weight in lbs Pre/Post Dialysis Refused Weight 122.533748071069 BP Diastolic BP Location Tested BP Systolic BP Type 66 99 Fetus Heart Rate Present Fetus Movement A Yes Comments patient is having some cramp ing, discharge, nausea and vomiting. ok for zofran, is considering , discussed risk of catastrophic event, risk of rupture, pt to consider, recovery was hard last timehad gender ID, girl! f/u 4 weeks anatomy scan Flowsheet Date 12/20/2022 Lepe Score Blood Edema Fundus Height Fundus Units Glucose Ketones Leukocytes Nitrite Labor Signs Protein Cervic Dilation Cervic Effacement Cervic Station Type Weight in lbs Pre/Post Dialysis Refused BP Diastolic BP Location Tested BP Systolic BP Type Fetus Heart Rate Present Fetus Movement Comments Flowsheet Date 12/20/2022 Lepe Score Blood Edema Fundus Height Fundus Units Glucose Ketones Leukocytes Nitrite Labor Signs Protein Cervic Dilation Cervic Effacement Cervic Station neg none none trace Type Weight in lbs Pre/Post Dialysis Refused Weight 126.74840723037 BP Diastolic BP Location Tested BP Systolic BP Type 62 97 Fetus Heart Rate Present Fetus Movement A Yes Comments patient is having back pain and nausea. reviewed precautions, anatomy complete +FM, precautions reviewed f/u 4 weeks Flowsheet Date 01/17/2023 Lepe Score Blood Edema Fundus Height Fundus Units Glucose Ketones Leukocytes Nitrite Labor Signs Protein Cervic Dilation Cervic Effacement Cervic Station neg none none trace Type Weight in lbs Pre/Post Dialysis Refused Weight 132.010563927734 BP Diastolic BP Location Tested BP Systolic BP Type 71 101 Fetus Heart Rate Present Fetus Movement A Yes Comments patient is having cramping, BH contractions, and nausea. reviewed PTL precautions, education done, next visit growth and GCT, [facility] Flowsheet Date 01/23/2023 Lepe Score Blood Edema Fundus Height Fundus Units Glucose Ketones Leukocytes Nitrite Labor Signs Protein Cervic Dilation Cervic Effacement Cervic Station Type Weight in lbs Pre/Post Dialysis Refused BP Diastolic BP Location Tested BP Systolic BP Type Fetus Heart Rate Present Fetus Movement Comments Flowsheet Date 02/14/2023 Lepe Score Blood Edema Fundus Height Fundus Units Glucose Ketones Leukocytes Nitrite Labor Signs Protein Cervic Dilation Cervic Effacement Cervic Station Type Weight in lbs Pre/Post Dialysis Refused BP Diastolic BP Location Tested BP Systolic BP Type Fetus Heart Rate Present Fetus Movement Comments Flowsheet Date 02/14/2023 Lepe Score Blood Edema Fundus Height Fundus Units Glucose Ketones Leukocytes Nitrite Labor Signs Protein Cervic Dilation Cervic Effacement Cervic Station neg none none trace Type Weight in lbs Pre/Post Dialysis Refused Weight 139.580693713446 BP Diastolic BP Location Tested BP Systolic BP Type 65 99 Fetus Heart Rate Present A 150 Fetus Movement A Yes Comments US today 37%. GCT today. Dis cussed Tdap. Would like to . Is aware of risks previously discussed. CS was for intolerance. Flowsheet Date 02/28/2023 Lepe Score Blood Edema Fundus Height Fundus Units Glucose Ketones Leukocytes Nitrite Labor Signs Protein Cervic Dilation Cervic Effacement Cervic Station neg none 28 none trace Type Weight in lbs Pre/Post Dialysis Refused Weight 141.059444891492 BP Diastolic BP Location Tested BP Systolic BP Type 73 114 Fetus Heart Rate Present A 154 Present Fetus Movement A Yes Comments patient is having some BH co ntractions. reviewed PTL precautions, still planning TOLAC, has f/u growth scheduled Flowsheet Date 03/14/2023 Lepe Score Blood Edema Fundus Height Fundus Units Glucose Ketones Leukocytes Nitrite Labor Signs Protein Cervic Dilation Cervic Effacement Cervic Station Type Weight in lbs Pre/Post Dialysis Refused BP Diastolic BP Location Tested BP Systolic BP Type Fetus Heart Rate Present Fetus Movement Comments Flowsheet Date 03/14/2023 Lepe Score Blood Edema Fundus Height Fundus Units Glucose Ketones Leukocytes Nitrite Labor Signs Protein Cervic Dilation Cervic Effacement Cervic Station neg none none trace Type Weight in lbs Pre/Post Dialysis Refused Weight 143.833249472412 BP Diastolic BP Location Tested BP Systolic BP Type 74 115 Fetus Heart Rate Present Fetus Movement A Yes Comments patient is having some cramp ing. precautions efw 19%, breech, exercises given, +FM, ok to call for preadmit next visit Flowsheet Date 03/28/2023 Lepe Score Blood Edema Fundus Height Fundus Units Glucose Ketones Leukocytes Nitrite Labor Signs Protein Cervic Dilation Cervic Effacement Cervic Station neg none 31 none trace Type Weight in lbs Pre/Post Dialysis Refused Weight 148.989842894851 BP Diastolic BP Location Tested BP Systolic BP Type 62 120 Fetus Heart Rate Present A 141 Present Fetus Movement A Yes Comments call for preadmit, gbs next visit with growth us, planning TOLAC, precautions reviewed f/u 2 weeks Flowsheet Date 04/11/2023 Lepe Score Blood Edema Fundus Height Fundus Units Glucose Ketones Leukocytes Nitrite Labor Signs Protein Cervic Dilation Cervic Effacement Cervic Station Type Weight in lbs Pre/Post Dialysis Refused BP Diastolic BP Location Tested BP Systolic BP Type Fetus Heart Rate Present Fetus Movement Comments Flowsheet Date 04/11/2023 Lepe Score Blood Edema Fundus Height Fundus Units Glucose Ketones Leukocytes Nitrite Labor Signs Protein Cervic Dilation Cervic Effacement Cervic Station neg none none trace Type Weight in lbs Pre/Post Dialysis Refused Weight 149.383958067564 BP Diastolic BP Location Tested BP Systolic BP Type 70 106 Fetus Heart Rate Present Fetus Movement A Yes Comments patient is having cramping, back pain and discharge. efw 27% FL 3%, back pain, gave exercises, migraines worsening do seem to resolve with fioricet, gbs done today precautions reviewed Flowsheet Date 04/18/2023 Lepe Score Blood Edema Fundus Height Fundus Units Glucose Ketones Leukocytes Nitrite Labor Signs Protein Cervic Dilation Cervic Effacement Cervic Station neg none none trace Type Weight in lbs Pre/Post Dialysis Refused Weight 149.051085615419 BP Diastolic BP Location Tested BP Systolic BP Type 70 110 Fetus Heart Rate Present A 145 Present Fetus Movement A Yes Comments patient is having cramping a nd nausea. doing well +FM, gbs done, precautions and education Flowsheet Date 04/25/2023 Lepe Score Blood Edema Fundus Height Fundus Units Glucose Ketones Leukocytes Nitrite Labor Signs Protein Cervic Dilation Cervic Effacement Cervic Station neg trace none trace Type Weight in lbs Pre/Post Dialysis Refused Weight 152.606237258622 BP Diastolic BP Location Tested BP Systolic BP Type 71 110 Fetus Heart Rate Present A 145 Fetus Movement A Yes Comments patient states that having s ome swelling. doing well +FM discussed 05/10 induction if undelivered, still planning tolac reviewed precautions f/u next week Flowsheet Date 05/02/2023 Lepe Score Blood Edema Fundus Height Fundus Units Glucose Ketones Leukocytes Nitrite Labor Signs Protein Cervic Dilation Cervic Effacement Cervic Station neg none 35 none trace 0cm Type Weight in lbs Pre/Post Dialysis Refused Weight 153.275809524715 BP Diastolic BP Location Tested BP Systolic BP Type 77 114 Fetus Heart Rate Present A 150 Present Fetus Movement A Yes Comments patient is having cramping, contractions and discharge. discussed TOLAC if cervix is dilated next week. discussed rpt c/s if no change, questions answered, will discuss at next visit, precautions reviewed Flowsheet Date 05/09/2023 Lepe Score Blood Edema Fundus Height Fundus Units Glucose Ketones Leukocytes Nitrite Labor Signs Protein Cervic Dilation Cervic Effacement Cervic Station neg trace none trace Type Weight in lbs Pre/Post Dialysis Refused Weight 154.083815236649 BP Diastolic BP Location Tested BP Systolic BP Type 84 131 Fetus Heart Rate Present A 143 Present Fetus Movement A Yes Comments patient states that having s ome contractions, pain, pressure, blood with urine, swelling and nausea. start keflex for UTI, increase hydration, discussed closed cervix, TOLAC risks pt will plan on rpt , will schedule for this week with dr kenny Menstrual History Last Menstrual Date Menses Monthly On Bcp Conception Prior Menses Frequency Hcg Plus Date Menarche Onset Age 0308/03/2022 Genetic Screening And Infection History Question Response Note Mental Retardation/Autism false Patient's Age Will Be 35 Years Or Older At Estim ated Date of Delivery false Thalassemia (Yi, South African, Mediterranean, Or Background): MCV < 80 false Neural Tube Defect (Meningomyelocele, Spina Bifi da, Or Anencephaly) false Congenital Heart Defect false Down Syndrome false Armando-Sachs (eg, Christianity, Cajun, Citizen Of [place]) f alse Gertrudis Disease false Sickle Cell Disease Or Trait () false Hemophilia Or Other Blood Disorders false Muscular Dystrophy false Cystic Fibrosis false [place]'s Chorea false Intellectual Disability/Autism false If Yes, Was Person Tested For Fragile X? false Other Inherited Genetic Or Chromosomal Disorder false Maternal Metabolic Disorder (eg, Type 1 Diabetes , PKU) false Patient Or Baby's Father Had A Child With Defects Not Listed Above false Recurrent Loss, Or A Stillbirth false Medications (including Suppl ements, Vitamins, Herbs, OTC Drugs), Illicit/Recreational Drugs, Alcohol false If Yes, Agent(s) And Strength/Dosage false Any Other Genetic History false Live With Someone With TB Or Exposed To TB false Patient Or Partner Has History Of Genital Herpes false Rash Or Viral Illness Since Last Menstrual Perio d false History Of STD, Gonorrhea, Chlamydia, HPV, Syphi lis false Other Infection History false History of HIV false History of Hepatitis false Prior GBS-infected child false Hemoglobinopathy Or Carrier false Other Structural Defect false Recent Travel History Outside of Country false Delivery Information Delivery Date Delivery Type Labor Anesthesia Weeks Gestation Incision Type Labor Labor Length Hrs Delivered By Post Complications Tubal Sterilization Discharge Date Comments 3 None Regional-Sp inal 40.1 Low Transvers e false Eren Kenny MD Discharge Information Feeding Method Contraceptive Method Maternal HG B and HCT Levels Ob Episode Information Episode Created Date Number of Fetuses Patient Bloodtype Patient rh Status Prepregnancy Weight lbs Domestic Partner Domestic Partner Phone Father Name Cardiology Clinical Nurse Specialist Status 04/23/20 24 1 O Positive 129 Ca;eb Richard OPEN Fetus Data First Name Last Name Admitted to NICU Weight (g) Sex Living Outcome Pediatric Complications Fetus ID Race Codes Race Delivery Type [id number] Problems Problem Notes short interval -renetta ns rpt c/s considering pp IUD Problem Name Start Date End Date Resolution Snomed Code Not e Past history of gestational hypertension [id number] delicia Arce Disorder of placenta [id number] Bilobed placenta serial growth Sergio Calculation Initial Sergio Date Initial Exam Date Initial Exam Provider Initial Ultrasound Date Last Menstrual Period Date Ultra Sound Weeks Gestation 11/04/2024 04/02/2024 Charlene Murray 04/02/2024 01/29/2024 9 Eighteen To Twenty Week Sergio Update Ultra Sound Date Fundal Height At Umbil Quickening Date Ultra Sound Latest Weeks Gestation Final Sergio Confirmed By Final Sergio Confirmed Date Final Sergio Date Ultra Sound Latest Days Gestation 0 0 Pre-marvin Flowsheet Flowsheet Date 04/23/2024 Lepe Score Blood Edema Fundus Height Fundus Units Glucose Ketones Leukocytes Nitrite Labor Signs Protein Cervic Dilation Cervic Effacement Cervic Station neg none none trace Type Weight in lbs Pre/Post Dialysis Refused Weight 128.575534608186 BP Diastolic BP Location Tested BP Systolic BP Type 80 122 Fetus Heart Rate Present Fetus Movement A No Comments Patient is having some nause a and vomiting. reviewed hx c/s x 2, plan rpt with delicia erwin hx HTN first , begin routine care Flowsheet Date 06/18/2024 Lepe Score Blood Edema Fundus Height Fundus Units Glucose Ketones Leukocytes Nitrite Labor Signs Protein Cervic Dilation Cervic Effacement Cervic Station Type Weight in lbs Pre/Post Dialysis Refused BP Diastolic BP Location Tested BP Systolic BP Type Fetus Heart Rate Present Fetus Movement Comments Flowsheet Date 06/18/2024 Lepe Score Blood Edema Fundus Height Fundus Units Glucose Ketones Leukocytes Nitrite Labor Signs Protein Cervic Dilation Cervic Effacement Cervic Station neg none Type Weight in lbs Pre/Post Dialysis Refused 134.034505111555 BP Diastolic BP Location Tested BP Systolic BP Type 65 101 Fetus Heart Rate Present Fetus Movement A Yes Comments Patient is having pain and B H contractions. anatomy complete, efw 70% bi lobed placenta plan q 4 weeks, do not rec trip to [place], travel precautions given, education done f/u 4 weeks Flowsheet Date 07/16/2024 Lepe Score Blood Edema Fundus Height Fundus Units Glucose Ketones Leukocytes Nitrite Labor Signs Protein Cervic Dilation Cervic Effacement Cervic Station Type Weight in lbs Pre/Post Dialysis Refused BP Diastolic BP Location Tested BP Systolic BP Type Fetus Heart Rate Present Fetus Movement Comments Flowsheet Date 07/16/2024 Lepe Score Blood Edema Fundus Height Fundus Units Glucose Ketones Leukocytes Nitrite Labor Signs Protein Cervic Dilation Cervic Effacement Cervic Station neg none Type Weight in lbs Pre/Post Dialysis Refused 141.961768284686 BP Diastolic BP Location Tested BP Systolic BP Type 70 107 Fetus Heart Rate Present Fetus Movement A Yes Comments Patient states that is havin g some BH contractions. reviwed precautions and education, travel precautions efw 57%, f/u 4 weeks with growth and GCT Flowsheet Date 08/13/2024 Lepe Score Blood Edema Fundus Height Fundus Units Glucose Ketones Leukocytes Nitrite Labor Signs Protein Cervic Dilation Cervic Effacement Cervic Station Type Weight in lbs Pre/Post Dialysis Refused BP Diastolic BP Location Tested BP Systolic BP Type Fetus Heart Rate Present Fetus Movement Comments Flowsheet Date 08/13/2024 Lepe Score Blood Edema Fundus Height Fundus Units Glucose Ketones Leukocytes Nitrite Labor Signs Protein Cervic Dilation Cervic Effacement Cervic Station neg none Type Weight in lbs Pre/Post Dialysis Refused 148.754041616767 BP Diastolic BP Location Tested BP Systolic BP Type 68 105 Fetus Heart Rate Present Fetus Movement A Yes Comments Patient is having some BH co ntractions. declines tdap doing well! engaged! +FM, EFW 37 %, breech, tubal consent signed f/u 2 weeks gct today Menstrual History Last Menstrual Date Menses Monthly On Bcp Conception Prior Menses Frequency Hcg Plus Date Menarche Onset Age 0801/29/2024 Delivery Information Delivery Date Delivery Type Labor Anesthesia Weeks Gestation Incision Type Labor Labor Length Hrs Delivered By Post Complications Tubal Sterilization Discharge Date Comments Discharge Information Feeding Method Contraceptive Method Maternal HG B and HCT Levels
--- OUTSIDE RECORDS SUMMARY | 2024-08-27 07:31 | XMS_ITS | Clinical Summary ---
Author Organization [facility] [employer] Address [address] [place] [address] Care Team Providers Care Aquatics Group Fitness Instructor Name Role Phone Rosemary Manzano MD Primary Care Provider [phone] Source Comments [facility] [employer],non-owned Affiliates and Associated Physician Practices is amultiple site organization consisting of ambulatory clinics and hospital sitesin [place], [place], [place] and [place]. This disclosure is being madepursuant to the Care Everywhere program and may not contain all information available regarding this patient. Last updated 18.[employer] Allergies No known active allergies Medications Be [...] 61.7 kg (136 lb) 06/06/2022 9:34 AM RIG SITE ENGINEER Height 160 cm (5' 3 ) 06/06/2022 9:34 AM RIG SITE ENGINEER Body Mass Index 24.09 06/06/2022 9:34 AM RIG SITE ENGINEER Plan of Treatment Health Maintenance Due Date [...] age to complete this topic Care Teams Aquatics Group Fitness Instructor Relationship Specialty Start Date End Date Rosemary Manzano MD [address] [place] [address] PCP - General 03/29/20
--- OUTSIDE RECORDS SUMMARY | 2024-08-27 07:32 | XMS_ITS | Referral Summary ---
Author Organization [facility] [address] Address [address] [place] [address] Phone Care Team Providers Care Cafeteria Attendant Name Role Phone Elías Echevarria MD Primary Care Provider [phone] Allergies No known active allergies Medications dicyclomine [...] on file Legal Sex Female 9:10 PM FITNESS COORDINATOR Gender Identity Not on file Sexual Orientation [...] E6/E7, CHLAMYDIA/N.GONORRH OEAE Routine 07/31/2017 1:36 PM FITNESS COORDINATOR Routine cervical smear Screening examination for venereal disease from Last 3 Months or Most Recently Relevant to Health Maintenance Results * THINPREP TIS PAP REFLEX HPV mRNA E6/E7, CHLAMYDIA/N.GONORRHOEAE (07/31/2017 1:36 PM FITNESS COORDINATOR) Report status [facility]CELED [facility] [...] has been evaluated with computer assisted technology. [facility] - Comment: KMY, CT(ASCP) CT screening location: [place] [address] [address] [place] [address] Review restaurant hostess [facility] - Comment:Result canceled by t he ancillary Pathologist [facility] - Comment:Result canceled by t christa ancillary C. trachomatis RNA NOT DETECTED NOT DETECTED [facility] N. gonorrhoeae RNA NOT DETECTED NOT DETECTED [facility] Comment [facility] Comment: This test was performed using the APTIMA COMBO2 Assay ([employer] The analytical performance characteristics of this assay, when used to test SurePath specimens have been determined by [employer]. Fluid 07/31/2017 1:36 PM FITNESS COORDINATOR 08/01/2017 5:41 AM FITNESS COORDINATOR Narrative Resulting Agency Comment Performing Organization Information: Site ID: Name: [facility] Address: [facility] [place] [address] Director: Popeye Bernard MD Milady Jason MD LAB PATHOLOGY ORDERAB LES Final Result [place], [place] from Last 3 Months or Most Recently Relevant to Health Maintenance Insurance [facility] Care Teams Cafeteria Attendant Relationship Specialty Start Date End Date Elías Echevarria MD [address] [address] PCP - General Family Medicine 10/02/22
--- OUTSIDE RECORDS SUMMARY | 2024-08-27 07:32 | XMS_ITS | Clinical Summary ---
Author Organization [facility] [address] Address [address] [place] [address] Phone Care Team Providers Care Radio News Writer Name Role Phone Elías Echevarria MD Primary Care Provider [phone] Allergies No known active allergies Medications dicyclomine [...] on file Legal Sex Female 9:10 PM CAUSTIC CRESYLATE SHIFT SUPERINTENDENT Gender Identity Not on file Sexual Orientation [...] E6/E7, CHLAMYDIA/N.GONORRH OEAE Routine 07/31/2017 1:36 PM CAUSTIC CRESYLATE SHIFT SUPERINTENDENT Routine cervical smear Screening examination for venereal disease from Last 3 Months or Most Recently Relevant to Health Maintenance Results * THINPREP TIS PAP REFLEX HPV mRNA E6/E7, CHLAMYDIA/N.GONORRHOEAE (07/31/2017 1:36 PM CAUSTIC CRESYLATE SHIFT SUPERINTENDENT) Report status [facility]ELED [facility] [...] has been evaluated with computer assisted technology. Chief Clerk [facility] - Comment: DAVID ESPINO(ASCP) CT screening location: [place] [address] [place] [address] Review mold setter [facility] Comment:Result canceled by t he ancillary Pathologist [facility] Comment:Result canceled by t he ancillary C. trachomatis RNA NOT DETECTED NOT DETECTED [facility] N. gonorrhoeae RNA NOT DETECTED NOT DETECTED [facility] Comment [facility] - Comment: This test was performed using the APTIMA COMBO2 Assay ([employer] The analytical performance characteristics of this assay, when used to test SurePath specimens have been determined by [facility]. Fluid 07/31/2017 1:36 PM CAUSTIC CRESYLATE SHIFT SUPERINTENDENT 08/01/2017 5:41 AM CAUSTIC CRESYLATE SHIFT SUPERINTENDENT Narrative Resulting Agency Comment Performing Organization Information: Site ID: Name: [facility] Address: [address] [place] [address] Director: Popeye Bernard MD us Milady Jason MD LAB PATHOLOGY ORDERAB LES Final Result [facility] [place], [place] from Last 3 Months or Most Recently Relevant to Health Maintenance Insurance [facility] Care Teams Radio News Writer Relationship Specialty Start Date End Date Elías Echevarria MD [address] [place] [address] PCP - General Family Medicine 10/02/22
--- OUTSIDE RECORDS SUMMARY | 2024-08-27 07:32 | XMS_ITS | Clinical Summary ---
Author Organization [facility] Address [address] [place] [address] Phone Care Team Providers Care Infrastructure Developer Name Role Phone Benson Odell DPM Unavailable Milady Jason MD Unavailable [phone] Provider, None Primary Care Provider Unavailabl e [...] on file Legal Sex Female 10:12 AM JOB COUNSELOR Gender Identity Not on file Sexual Orientation [...] Insurance MEDICAID [facility] [employer] Care Teams Infrastructure Developer Relationship Specialty Start Date End Date Provider, None [place] PCP - General 11/18/20 Benson Odell DPM Consulting Physician Podiatry 12/28/16 Milady Jason MD [address] [place] [address] Consulting Physician Obstetrics & Gynecology 10/08/17
--- OUTSIDE RECORDS SUMMARY | 2024-08-27 07:32 | XMS_ITS | Patient Health Record ---
Author Organization [facility] Address [address] [place] [address] Care Team Providers Care Cigarette Machines Mechanic Name Role Phone Catherine Nolasco Primary Care Provider [phone] Jessica Nunez Unavailable Reason For Referral No Information Encounters Encounter Location Date Provider Diagnosis 2 [facility] [address] [place] [address] 09/07/2023 Jessica Trevino Staph infection B95.8 Assessments [...] Insured Coverage Start Date Coverage End Date [employer] [address] [id number] Krystyna Wilde Self - patient is the insured
--- OUTSIDE RECORDS SUMMARY | 2024-08-27 07:33 | XMS_ITS ---
Author Organization [employer] [facility] Address [address] [place] [address] Care Team Providers Care Actimize Architect Name Role Phone Catherine Nolasco Primary Care Provider [phone] Jessica Nunez REASON FOR VISIT Staph infection Medications Medication SIG (Take, Route, Frequency, Duration) Notes Start Date End Date Status Sulfamethoxazole-Trimetho prim 800-160 MG 1 tablet Orally twice a day for 10 days 09/07/2023 09/17/2023 Active Encounters Encounter Location Date Provider Diagnosis 2 [facility] [address] [place] [address] 09/07/2023 Jessica Trevino Staph infection B95.8 Assessments [...] * Krystyna WILDEDOB:[birth year] (33 yo F)Acc No.[id number]:09/07/2023 Patient: Krystyna BAZZI Provider: Wilma Trevino :1990 A ge:32 Y S ex:Female Date:09/07/2023 [facility] [place] [address] Pcp:Catherine Nolasco Subjective: * Chief Complaints: * 1 . Staph infection . * HPI: T ransition of Care: TM call. Patient lives in [place] and consents to TM call. States she [...] improve) * Billing Information: * Visit Code: 39353 Office Visit, New Pt., Level 3. Modifiers: 25 * Procedure Codes: * Electronic signature of Jessica Trevino APN on 08/27/2024 at 07:32 AM CDT Sign off status: Pending * Provider: Wilma Trevino Date: 0 09/07/2023 Generated for Héctor morfin/Sandee/Gary on: 0 08/27/2024 07:32 AM CDT History and Physical Notes * HPI (History of Present Illness) Category Sub-Category Detail Notes Category Not es Transition of Care TM call. Patient lives in [place] and consents to TM call. States she has what appears to be a skin infection caused (probably) by Staph aureus. Examination Category Sub-Category Detail Notes Category Not es General Examination Patient is A&Ox3 while on the call. No video capabilities available to this provider.
--- NOTE | 2024-08-29 07:24 | PM.OBTRLD ---
OB - Triage/Final Diagnosis Visit Information Date of evaluation: 08/26/24 Reason for evaluation: threatened labor Comments/Additional reasons for admission: I have assessed the risk for this patient, Krystyna Wilde, and determined that she would benefit from observation care.
== END 2024-08-26 16:39 | disposition home or self-care (01) ==
PROVIDERS: Admitting Provider Obstetrics & Gynecology; PCP Family Medicine; Visit Provider Obstetrics & Gynecology
DX: O47.03 False labor before 37 completed weeks of gestation, third trimester (principal); Z3A.29 29 weeks gestation of pregnancy
CPT/HCPCS: 99199

== ENCOUNTER 2024-09-17 17:04 | Outpatient (CLI) | payer OTHER, SELFPAY ==
--- NOTE | ~2024-09-17 | US_ITS ---
LEFT LOWER EXTREMITY VENOUS ULTRASOUND Ordering provider: Eren Painter MD History: . Pain in left lower limb . Comparison: None. FINDINGS: --COMMON FEMORAL: Patent and free of thrombus. Normal compressibility, phasic flow and augmentation. --PROXIMAL SUPERFICIAL FEMORAL: Patent and free of thrombus. Normal compressibility, phasic flow and augmentation. --DISTAL SUPERFICIAL FEMORAL: Patent and free of thrombus. Normal compressibility, phasic flow and au gmentation. --POPLITEAL: Patent and free of thrombus. Normal compressibility, phasic flow and augmentation. --POSTERIOR TIBIAL: Patent and free of thrombus. Normal compressibility, phasic flow and augmentation . IMPRESSION: Negative left lower extremity venous US. No deep vein thrombosis. Reviewed, dictated and finalized at location A.
--- OUTSIDE RECORDS SUMMARY | 2024-09-17 17:08 | XMS_ITS | Clinical Summary ---
Author Organization [facility] [employer] Address [address] [address] Care Team Providers Care Mold Unloader Name Role Phone Rosemary Manzano MD Primary Care Provider Source Comments [facility] [employer],non-owned Affiliates and Associated Physician Practices is amultiple site organization consisting of ambulatory clinics and hospital sitesin [place], [place], [place] and [place]. This disclosure is being madepursuant to the Care Everywhere program and may not contain all information available regarding this patient. Last updated 18.[facility] [employer] Allergies No known active allergies Medications * Be aware that medications may not be up to date on this document. Alwaysverify current medications with the patient. No known medications Active Problems No known active problems Social History Tobacco Use Types Packs/Day Years Used Date Smoking Tobacco: Never Smokeless Tobacco: Never Tobacco Cessation:Counseling Given: Not Answered Alcohol Use Standard Drinks/Week Comments Not Currently 0 (1 standard drink = 0.6 oz pur e alcohol) Comments No Sex and Gender Information Value Date Recorded Sex Assigned at Not on file Legal Sex Female 5:36 AM INTERNET ARCHITECT Gender Identity Not on file Sexual Orientation Not on file Last Filed Vital Signs Vital Sign Reading Time Taken Comments Blood Pressure - - Pulse - - Temperature - - Respiratory Rate - - Oxygen Saturation - - Inhaled Oxygen Concentration - - Weight 61.7 kg (136 lb) 06/06/2022 9:34 AM INTERNET ARCHITECT Height 160 cm (5' 3 ) 06/06/2022 9:34 AM INTERNET ARCHITECT Body Mass Index 24.09 06/06/2022 9:34 AM INTERNET ARCHITECT Plan of Treatment Health Maintenance Due Date Last Done Comments PAP SMEAR 1990 HIV SCREENING 11/06/2007 HEPATITIS C SCREENING 11/01/2010 DTAP/TDAP/TD VACCINES (1 - Tdap) 11/06/2011 HEPATITIS B VACCINE (1 of 3 - 19+ 3-dose series) 11/06/2011 COVID-19 VACCINE (1 - 2023-2 5 season) 2024 DEPRESSION SCREENING 06/04/2024 INFLUENZA VACCINE (Season Ended) 2025 ZOSTER VACCINE (1 of 2) 2042 HIB [...] patient's age to complete this topic Insurance [facility] Care Teams Mold Unloader Relationship Specialty Start Date End Date Rosemary Manzano MD [address] [place] [address] PCP - General 03/29/20
--- OUTSIDE RECORDS SUMMARY | 2024-09-17 17:09 | XMS_ITS | Data Portability ---
Author Organization [facility] KAYLYNNRacheal Montano Address [address] [place] [address] Care Team Providers Care Ground Source Heat Pump Technician Name Role Phone MINI GIBSON Commissioner Conservation Of Resources Assessment No assessment recorded. Plan of Treatment Reminders Order Date Submit Date Provider Last Modified By Organization Details Last Modified Time Details Appointments None recorded. Lab test, urine 2019 020 [email or web address] 23 In-Office Order, Internal Use Only DO Not Attach Compendium DO Not Attach Compendium, Do Not Delete/merge, [id number] 0 12:16:05 obstetric screen, serum or blood 2019 020 [facility] [address] [facility], [facility], [place], [address], 0 12:36:17 urinalysis complete, reflex culture 2019 020 [facility], [address] [facility], [facility], [place], [address], 0 12:36:18 drug screen, urine 2019 020 [facility], [address] [facility], [address], [place], [address], 0 12:36:17 hemoglobin S (hbs), presence, blood 2019 020 [facility], [address] [place], [address], [place], [address], 0 12:36:21 cf (cystic fibrosis) profile 02/25/ 2020 02/25/2 020 [facility], [address] [facility], [address], [place], [address], 0 12:36:19 varicella zoster virus IgG Ab, QN, IA, serum 2019 [facility], [address] [facility], [address], [place], [address], 0 12:36:20 HIV 1+2 AB + HIV 1 p24 Ag, qualitative immunoassay , serum 2019 [facility], [address] [facility], [address], [place], [address], 0 12:36:19 Referral None recorded. Procedures None [...] Negati ve negati ve Not Available [facility] ([facility]) [address] [place], [address], 08/05/2019 12:36:16 07/29/19 20 07/30/2019 obste tric scree n, serum or blood RPR Non Reacti ve non reacti ve Not Available [facility] ([facility]) [address] [place], [address], 08/05/2019 12:36:16 07/29/19 20 07/30/2019 obste tric scree n, serum or blood rubella antibodies, IgG <0.90 index immune >0.99 below low normal Non-i mmune <0.90 Equiv ocal 0.90 - 0.99 Immun e >0.99 Not Available [facility] ([facility]) [address] [facility], [place], [address], 08/05/2019 12:36:16 07/29/19 20 07/30/2019 obste tric scree n, serum or blood ABO grouping O Not Available [facility]) [address] [place], [address], 08/05/2019 12:36:16 07/29/19 20 07/30/2019 obste tric scree n, serum or blood Rh factor Positi ve Pleas e note: Prior recor ds for this patie nt's ABO / Rh type are not avail able for addit ional verif icati on. Not Available [facility] ([facility]) [address] [facility], [place], [address], 08/05/2019 12:36:16 07/29/19 20 07/30/2019 obste tric scree n, serum or blood antibody screen Negati ve negati ve Not Available [facility] ([facility]) [address] [facility], [place], [address], 08/05/2019 12:36:16 07/29/19 20 07/30/2019 obste tric scree n, serum or blood WBC 10.1 x10e3 /uL 3.4-10 .8 Not Available [facility] ([facility]) [address] [place], [address], 08/05/2019 12:36:16 07/29/19 20 07/30/2019 obste tric scree n, serum or blood RBC 4.29 x10e6 /uL 3.77-5 .28 Not Available [facility] ([facility]) [address] [place], [address], 08/05/2019 12:36:16 07/29/19 20 07/30/2019 obste tric scree n, serum or blood hemoglobin 12.9 g/dL 11.1-1 5.9 Not Available [facility] ([facility]) [address] [facility], [place], [address], 08/05/2019 12:36:16 07/29/19 20 07/30/2019 obste tric scree n, serum or blood hematocrit 38.6 % 34.0-4 6.6 Not Available [facility] ([facility]) [address] [facility], [place], [address], 08/05/2019 12:36:16 07/29/19 20 07/30/2019 obste tric scree n, serum or blood MCV 90 fL 79-97 Not Available [facility] ([facility]) [address] [facility], [place], [address], 08/05/2019 12:36:16 07/29/19 20 07/30/2019 obste tric scree n, serum or blood MCH 30.1 pg 26.6-3 3.0 Not Available [facility] ([facility]) [address] [facility], [place], [address], 08/05/2019 12:36:16 07/29/19 20 07/30/2019 obste tric scree n, serum or blood MCHC 33.4 g/dL 31.5-3 5.7 Not Available [facility] ([facility]) [address] [facility], [place], [address], 08/05/2019 12:36:16 07/29/19 20 07/30/2019 obste tric scree n, serum or blood RDW 12.6 % 11.7-1 5.4 Not Available [facility] ([facility]) [address] [place], [address], 08/05/2019 12:36:16 07/29/19 20 07/30/2019 obste tric scree n, serum or blood platelets 255 x10e3 /uL 150-45 0 Not Available [facility] ([facility]) [address] [place], [address], 08/05/2019 12:36:16 07/29/19 20 07/30/2019 obste tric scree n, serum or blood neutrophils 75 % not estab. Not Available [facility] ([facility]) [address] [facility], [place], [address], 08/05/2019 12:36:16 07/29/19 20 07/30/2019 obste tric scree n, serum or blood lymphs 18 % not estab. Not Available [facility] ([facility]) [address] [facility], [place], [address], 08/05/2019 12:36:16 07/29/19 20 07/30/2019 obste tric scree n, serum or blood monocytes 6 % not estab. Not Available [facility] ([facility]) [address] [facility], [place], [address], 08/05/2019 12:36:16 07/29/19 20 07/30/2019 obste tric scree n, serum or blood eos 0 % not estab. Not Available [facility] ([facility]) [address] [facility], [place], [address], 08/05/2019 12:36:16 07/29/19 20 07/30/2019 obste tric scree n, serum or blood basos 0 % not estab. Not Available [facility] ([facility]) [address] [facility], [place], [address], 08/05/2019 12:36:16 07/29/19 20 07/30/2019 obste tric scree n, serum or blood immature cells FRONT MAN Not Available [facility] ([facility]) [address] [place], [address], 08/05/2019 12:36:16 07/29/19 20 07/30/2019 obste tric scree n, serum or blood neutrophils (absolute) 7.5 x10e3 /uL 1.4-7. 0 above high normal Not Available [facility] ([facility]) [address] [place], [address], 08/05/2019 12:36:16 07/29/19 20 07/30/2019 obste tric scree n, serum or blood lymphs (absolute) 1.8 x10e3 /uL 0.7-3. 1 Not Available [facility] ([facility]) [address] [place], [address], 08/05/2019 12:36:16 07/29/19 20 07/30/2019 obste tric scree n, serum or blood monocytes(ab solute) 0.6 x10e3 /uL 0.1-0. 9 Not Available [facility] ([facility]) [address] [place], [address], 08/05/2019 12:36:16 07/29/19 20 07/30/2019 obste tric scree n, serum or blood eos (absolute) 0.0 x10e3 /uL 0.0-0. 4 Not Available [facility] ([facility]) [address] [place], [address], 08/05/2019 12:36:16 07/29/19 20 07/30/2019 obste tric scree n, serum or blood baso (absolute) 0.0 x10e3 /uL 0.0-0. 2 Not Available [facility] ([facility]) [address] [place], [address], 08/05/2019 12:36:16 07/29/19 20 07/30/2019 obste tric scree n, serum or blood immature granulocytes 1 % not estab. Not Available [facility] ([facility]) [address] [place], [address], 08/05/2019 12:36:16 07/29/19 20 07/30/2019 obste tric scree n, serum or blood immature grans (abs) 0.1 x10e3 /uL 0.0-0. 1 Not Available [facility] ([facility]) [address] [place], [address], 08/05/2019 12:36:16 07/29/19 20 07/30/2019 obste tric scree n, serum or blood NRBC FRONT MAN Not Available [facility] ([facility]) [address] [facility], [place], [address], 08/05/2019 12:36:16 07/29/19 20 07/30/2019 obste tric scree n, serum or blood hematology comments: FRONT MAN Not Available [facility] ([facility]) [address] [facility], [place], [address], 08/05/2019 12:36:16 07/29/19 20 07/29/2019 drug scree [...] on is avail able at mel shi [email or web address] om, or call toll free [phone]. Not Available [facility] ([facility]) [address] [facility], [place], [address], 08/05/2019 12:36:17 07/29/19 20 07/30/2019 drug scree n, urine amphetamines , urine Negati ve NG/mL cutoff =1000 Amphe tamin e test inclu arlen Amphe tamin e and Metha mphet amine . Not Available [facility] ([facility]) [address] [facility], [place], [address], 08/05/2019 12:36:17 07/29/19 20 07/30/2019 drug scree n, urine barbiturates Negati ve NG/mL cutoff =200 Not Available [facility] ([facility]) [address] [place], [address], 08/05/2019 12:36:17 07/29/19 20 07/30/2019 drug scree n, urine benzodiazepi aysha Negati ve NG/mL cutoff =300 Not Available [facility] ([facility]) [address] [place], [address], 08/05/2019 12:36:17 07/29/19 20 07/30/2019 drug scree n, urine cannabinoid Negati ve NG/mL cutoff =50 Not Available [facility] ([facility]) [address] [place], [address], 08/05/2019 12:36:17 07/29/19 20 07/30/2019 drug scree n, urine cocaine (metab.) Negati ve NG/mL cutoff =300 Not Available [facility] ([facility]) [address] [place], [address], 08/05/2019 12:36:17 07/29/19 20 07/30/2019 drug scree n, urine opiates Negati ve NG/mL cutoff =300 Opiat e test inclu arlen Codei ne, Morph ine, [place] morph one, [place] codon e. Not Available [facility] ([facility]) [address] [place], [address], 08/05/2019 12:36:17 07/29/19 20 07/30/2019 drug scree n, urine phencyclidin e Negati ve NG/mL cutoff =25 Not Available [facility] ([facility]) [address] [place], [address], 08/05/2019 12:36:17 07/29/19 20 07/30/2019 drug scree n, urine methadone Negati ve NG/mL cutoff =300 Not Available [facility] ([facility]) [address] [place], [address], 08/05/2019 12:36:17 07/29/19 20 07/30/2019 drug scree n, urine propoxyphene , urine Negati ve NG/mL cutoff =300 Not Available [facility] ([facility]) [address] [place], [address], 08/05/2019 12:36:17 07/29/19 20 07/30/2019 urina lysis compl ete, refle x cultu re specific gravity 1.006 1.005- 1.030 Not Available [facility] ([facility]) [address] [place], [address], 08/05/2019 12:36:18 07/29/19 20 07/30/2019 urina lysis compl ete, refle x cultu re pH 6.5 5.0-7. 5 Not Available [facility] ([facility]) [address] [place], [address], 08/05/2019 12:36:18 07/29/19 20 07/30/2019 urina lysis compl ete, refle x cultu re urine-color Yellow yellow Not Available [facility] ([facility]) [address] [place], [address], 08/05/2019 12:36:18 07/29/19 20 07/30/2019 urina lysis compl ete, refle x cultu re appearance Clear clear Not Available [facility] ([facility]) [address] [place], [address], 08/05/2019 12:36:18 07/29/19 20 07/30/2019 urina lysis compl ete, refle x cultu re WBC esterase Negati ve negati ve Not Available [facility] ([facility]) [address] [place], [address], 08/05/2019 12:36:18 07/29/19 20 07/30/2019 urina lysis compl ete, refle x cultu re protein Negati ve negati ve/tra ce Not Available [facility] ([facility]) [address] [place], [address], 08/05/2019 12:36:18 07/29/19 20 07/30/2019 urina lysis compl ete, refle x cultu re glucose Negati ve negati ve Not Available [facility] ([facility]) [address] [place], [address], 08/05/2019 12:36:18 07/29/19 20 07/30/2019 urina lysis compl ete, refle x cultu re ketones Negati ve negati ve Not Available [facility] ([facility]) [address] [place], [address], 08/05/2019 12:36:18 07/29/19 20 07/30/2019 urina lysis compl ete, refle x cultu re occult blood Negati ve negati ve Not Available [facility] ([facility]) [address] [place], [address], 08/05/2019 12:36:18 07/29/19 20 07/30/2019 urina lysis compl ete, refle x cultu re bilirubin Negati ve negati ve Not Available [facility] ([facility]) [address] [place], [address], 08/05/2019 12:36:18 07/29/19 20 07/30/2019 urina lysis compl ete, refle x cultu re urobilinogen ,semi-qn 0.2 mg/dL 0.2-1. 0 Not Available [facility] ([facility]) [address] [place], [address], 08/05/2019 12:36:18 07/29/19 20 07/30/2019 urina lysis compl ete, refle x cultu re nitrite, urine Negati ve negati ve Not Available [facility] ([facility]) [address] [place], [address], 08/05/2019 12:36:18 07/29/19 20 07/30/2019 urina lysis compl ete, refle x cultu re microscopic examination Commen t Micro scopi c follo ws if indic ated. Not Available [facility] ([facility]) [address] [place], [address], 08/05/2019 12:36:18 07/29/19 20 07/30/2019 urina lysis compl ete, refle x cultu re microscopic examination See below: Micro scopi c was indic ated and was perfo rmed. Not Available [facility] ([facility]) [address] [facility], [place], [address], 08/05/2019 12:36:18 07/29/19 20 07/30/2019 urina lysis compl ete, refle x cultu re WBC 0-5 /hpf 0 - 5 Not Available [facility] ([facility]) [address] [facility], [place], [address], 08/05/2019 12:36:18 07/29/19 20 07/30/2019 urina lysis compl ete, refle x cultu re RBC 0-2 /hpf 0 - 2 Not Available [facility] ([facility]) [address] [place], [address], 08/05/2019 12:36:18 07/29/19 20 07/30/2019 urina lysis compl ete, refle x cultu re epithelial cells (non renal) 0-10 /hpf 0 - 10 Not Available [facility] ([facility] [address] [place], [address], 08/05/2019 12:36:18 07/29/19 20 07/30/2019 urina lysis compl ete, refle x cultu re epithelial cells (renal) FRONT MAN Not Available [facility] ([facility]) [address] [place], [address], 08/05/2019 12:36:18 07/29/19 20 07/30/2019 urina lysis compl ete, refle x cultu re casts FRONT MAN Not Available [facility] ([facility]) [address] [facility], [place], [address], 08/05/2019 12:36:18 07/29/19 20 07/30/2019 urina lysis compl ete, refle x cultu re cast type FRONT MAN Not Available [facility] ([facility]) [address] [facility], [place], [address], 08/05/2019 12:36:18 07/29/19 20 07/30/2019 urina lysis compl ete, refle x cultu re crystals FRONT MAN Not Available [facility] ([facility]) [address] [facility], [place], [address], 08/05/2019 12:36:18 07/29/19 20 07/30/2019 urina lysis compl ete, refle x cultu re crystal type FRONT MAN Not Available [facility] ([facility]) [address] [facility], [place], [address], 08/05/2019 12:36:18 07/29/19 20 07/30/2019 urina lysis compl ete, refle x cultu re mucus threads Presen t not estab. Not Available [facility] ([facility]) [address] [facility], [place], [address], 08/05/2019 12:36:18 07/29/19 20 07/30/2019 urina lysis compl ete, refle x cultu re bacteria Few none seen/f ew Not Available [facility] ([facility]) [address] [facility], [place], [address], 08/05/2019 12:36:18 07/29/19 20 07/30/2019 urina lysis compl ete, refle x cultu re yeast FRONT MAN Not Available [facility] ([facility]) [address] [facility], [place], [address], 08/05/2019 12:36:18 07/29/19 20 07/30/2019 urina lysis compl ete, refle x cultu re trichomonas FRONT MAN Not Available [facility] ([facility]) [address] [facility], [place], [address], 08/05/2019 12:36:18 07/29/19 20 07/30/2019 urina lysis compl ete, refle x cultu re comment FRONT MAN Not Available [facility] ([facility]) [address] [facility], [place], [address], 08/05/2019 12:36:18 07/29/19 20 07/30/2019 urina lysis compl ete, refle x cultu re urinalysis reflex Commen t This speci men will not refle x to a Urine Cultu re. Not Available [facility] ([facility]) [address] [facility], [place], [address], 08/05/2019 12:36:18 07/29/19 20 07/29/2019 cf (cyst ic fibro sis) profi le comment: Commen t The assay provi arlen infor matio n inten ded to be used for rosina er scree sherie in adult s of repro ducti ve age, as an aid in [facility] rn scree sherie, and as a confi rmato ry test for anoth er medic ally estab lishe d diagn osis in [facility] rns and child gianluca. The test is not indic ated for use in diagn ostic testi ng, pre-i mplan tatio n scree sherie, or for any stand -schuyler e diagn ostic purpo ses witho ut confi rmati on by anoth er medic ally estab lishe d diagn ostic produ ct or proce dure. Not Available [facility] ([facility]) [address] [facility], [place], [address], 08/05/2019 12:36:19 07/29/19 20 08/05/2019 cf (cyst [...] [facility] shruti at for a shawn ed repor t. Mutat [...] curre nt under stand ing of the [facility] jane ics of this condi tion. [...] Relea sed By: Arthur Fernandez, Ph.D. , [facility] Repor t Relea sed By: Arthur Fernandez, Ph.D. , [facility] Not Available [facility] ([facility]) [address] [facility], [place], [address], 08/05/2019 12:36:19 07/29/1908/05/2019 cf (cyst ic fibro sis) profi lina pdf . Not Available [facility] ([facility]) [address] [facility], [place], [address], 08/05/2019 12:36:19 07/29/19 20 07/30/2019 HIV 1+2 AB + HIV 1 p24 Ag, quali tativ e immun oassa y, serum HIV screen 4TH generation wrfx Non Reacti ve non reacti ve Not Available [facility] ([facility]) [address] [facility], [place], [address], 08/05/2019 12:36:19 07/29/19 20 07/30/2019 varic mian [...] stage of disea se. Not Available [facility] ([facility]) [address] [facility], [place], [address], 08/05/2019 12:36:20 07/29/19 20 07/31/2019 hemog lobin [...] ionat ion testi ng. Not Available [facility] ([facility]) [address], [place], [address], 08/05/2019 12:36:21 07/29/19 20 07/29/2019 pregn gertrudis test, urine HCG positi ve Not Available In-Office Order Internal Use Only DO Not Attach Compendium DO Not Attach Compendium, Do Not Delete/merge, [id number] 07/29/2019 11:26:38 08/20/19 20 08/19/2019 US, obste tric, 1st trime ster No observ ation record ed. [place] [id number] [facility] [address], [place], [address], 08/26/2019 10:05:50 Result Notes None recorded. Problems Name Problem SNOMED Code Status Onset Date Resolution Date Notes Provider Name and Address Organization Details Recorded Time [id number] Completed 020 10/08/2019 Yanet Boggs [place] null, [place] - [place] 0 11:04:30 Problem Notes None recorded. Procedures Surgical History Date Name Laterality Status Provider Name and Address Organization Details Recorded Time 06/04/2009 tonsilecto my/adenoid s completed Susan Dorman [place] - [place] 07/29/2019 11:22:03 Imaging Results Imaging Date Name Status LastModified by Organiz ation Details LastModified Time 08/19/2019 US, obstetric, 1st trimester completed [place] [id number] [facility] [address], [place], [address], 08/26/2019 10:05:50 Procedure Notes None recorded. Medical Equipment None Reported. Allergies No known drug allergies Medications Name Sig Start Date Stop Date Status Note LastModified by Organization Details LastModified Time active otc Not Available Not Avai lable Not Available Vitals Date Recorded Body weight Provider Name an d Address Organization Details Last Updated DateTime 07/29/2019 51814.577853 g Mini Gibson [facility] 2019 11:53:58 Date Recorded Body mass index (BMI) Body height Systolic blood pressure Diastolic blood pressure Provider Name and Address Organization Details Last Updated DateTime 07/29/2019 21 kg/m2 160.02 cm 110 mm[Hg] 82 mm[Hg] Susan Dandy [facility] 07/29/2019 11:25:02 Date Recorded Body height Provider Name an d Address Organization Details Last Updated DateTime 08/26/2019 160.02 cm Yanet Boggs MA [facility] 08/25 11:47:36 Social History Question Answer Notes LastModified by Organizat ion Details LastModified Time Tobacco Smoking Status Never Smoker Susan Dorman [facility], [facility] 07/29/2019 11:18:58 If You Are , What Was Your Level Of Alcohol Consumption Prior To ? Occasional Information not available 07/29/2019 Is Blood Transfusion Acceptable In An Emergency? Yes [email or web address] Information not available 07/29/2019 What Is Your Level Of Caffeine Consumption? None [email or web address] Information not available 07/29/2019 Live With Cats/exposure To Cat Litter No [email or web address] Information not available 07/29/2019 How Much Tobacco Do You Chew? None [email or web address] Information not available 07/29/2019 Are You Currently Employed? Yes [email or web address] Information not available 07/29/2019 What Type Of Diet Are You Following? REGULAR [email or web address] Information not available 07/29/2019 Which Illicit Or Recreational Drugs Have You Used? Denies Information not available 07/29/2019 Do You Or Have You Ever Used E-cigarettes Or Vape? Never Used Electronic Cigarettes [email or web address] Information not available 07/29/2019 Education 2 Year College [email or web address] Informatio n not available 07/29/2019 What Is Your Occupation? Self Employed [email or web address] Information not available 07/29/2019 Frequent Air Travel Yes Pt States She Does Not Fly Alot But Is Flying This Week [email or web address] Information not available 07/29/2019 Illicit Drugs Pre- Bhupendra [email or web address] Information not available 07/29/2019 Live Alone Or With Others? With Others [email or web address] Information not available 07/29/2019 Marital Status Single [email or web address] Informatio n not available 07/29/2019 How Many Children Do You Have? 0 [email or web address] Information not available 07/29/2019 Seat Belts Used Routinely Yes [email or web address] Information not available 07/29/2019 Are You Sexually Active? Yes [email or web address] Information not available 07/29/2019 Do You Have Smoke And Carbon Monoxide Detectors In Your Home? Yes [email or web address] Information not available 07/29/2019 Are You Passively Exposed To Smoke? No Information not available 07/29/2019 Do You Or Have You Ever Used Smokeless Tobacco? Never Used Smokeless Tobacco [email or web address] Information not available 07/29/2019 How Much Tobacco Do You Smoke? No [email or web address] Information not available 07/29/2019 Smoking Pre- No Information not available 07/29/2019 General Stress Level Medium [email or web address] Information not available 07/29/2019 Do You Use Sunscreen Routinely? Yes [email or web address] Information not available 07/29/2019 Sex: Unknown Functional Status Question Answer Note LastModified by Organization D etails LastModified Time What is your exercise level? None Information not available 07/29/2019 Mental Status None recorded. Family History Relationship Description Onset Age of this Age Resolved Age Notes LastModified by Organization Details LastModified Time Father No current problems or disability [email or web address] Not available 07/06 11:18:51 Mother No current problems or disability [email or web address] Not available 07/06 11:18:51 Medical History Condition [...] SNOMED-CT Code Diagnosis ICD10 Code Diagnosis Note [id number] Mini Waller ([employer]LECT[employer]EL[employer]) [address] [place] [address] 07/29/2019 10:39:27 07/30/2019 09:43:14 Missed period 44314328 N92.5 UPT positive, dwp. Routine an tenatal care 777280088 Z34.01 See ACOG form [id number] Mini Waller ([employer] G[employer]EL[employer]) [address] [place] [address] 08/26/2019 10:38:17 08/27/2019 10:28:55 Routine care [id number] Z34.81 See ACOG form Health Concerns Section Related Observation LastModified by Organization Detai ls LastModified Time None Recorded Concern Status LastModified by Organization Details LastModified Time None Recorded Advance Directives Directive None Recorded Payers Encounter Date Sequence Insurance Name Policy Number Policy Hurtado Covered Member ID Hurtado Member ID Guarantor Name 07/29/2019 1 [place] [facility] Krystyna Wilde [id number] Krystynapromise Wilde 08/26/2019 1 [place] [facility] Krystyna [place] [id number] Krystynapromise Hodgesoner 08/26/2019 1 [place] [place] [id number] Krystynapromise Wilde [id number] Krystyna Wilde Notes Date Note Type Note Provider Name and Address Organization Details Recorded Time 07/29/2019 text/html Pt. presents for confirmation of and initiation of care. She is taking PNVs already. Mini rodriguez, [place] - SIF 07/29/2019 12:15:46 OBGyn Episode Ob Episode Information Episode Created Date Number of Fetuses Patient Bloodtype Patient rh Status Prepregnancy Weight lbs Domestic Partner Domestic Partner Phone Father Name Certified Professional Controller Status 07/29/19 20 1 CLOSED Fetus Data First Name Last Name Admitted to NICU Weight (g) Sex Living Outcome Pediatric Complications Fetus ID Race Codes Race Delivery Type , Spontane ous [id number] Sergio Calculation Initial Sergio Date Initial Exam [...] Domestic Partner Domestic Partner Phone Father Name Certified Professional Controller Status 07/29/19 20 1 O Positive Bryan Richard CLOSED Fetus Data First Name Last Name Admitted to NICU Weight (g) Sex Living Outcome Pediatric Complications Fetus ID Race Codes Race Delivery Type [id number] Sergio Calculation Initial Sergio Date Initial Exam Date Initial Exam Provider Initial Ultrasound Date Last Menstrual Period Date Ultra Sound Weeks Gestation 03/12/2020 07/29/2019 [email or web address] 08/19/2019 06/06/2019 10 Eighteen To Twenty Week Sergio Update Ultra Sound Date Fundal Height At Umbil Quickening Date Ultra Sound Latest Weeks Gestation Final Sergio Confirmed By Final Sergio Confirmed Date Final Sergio Date Ultra Sound Latest Days Gestation 0 [email or web address] 08/26/2019 03/12/20 20 0 Pre- Flowsheet Flowsheet Date 07/29/2019 Lepe Score Blood Edema Fundus Height Fundus Units Glucose Ketones Leukocytes Nitrite Labor Signs Protein Cervic Dilation Cervic Effacement Cervic Station Type Weight in lbs Pre/Post Dialysis Refused With clothes [id number] BP Diastolic BP Location Tested BP Systolic [...] At Estimated Date of Delivery false Thalassemia (Yoruba, Frisian, Mediterranean, Or Background): MCV < 80 true fob is Neural Tube Defect (Meningom yelocele, Spina Bifida, Or Anencephaly) false Congenital Heart Defect false Down Syndrome false Armando-Sachs (eg, Sabianist, Cajun, Maori-Wayne) f alse Gertrudis Disease false Sickle Cell Disease Or Trait () false Hemophilia Or Other Blood Disorders false Muscular Dystrophy false Cystic Fibrosis false Lawler's Chorea false Mental Retardation/Autism false Other Inherited [...]
--- OUTSIDE RECORDS SUMMARY | 2024-09-17 17:09 | XMS_ITS | Referral Summary ---
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 [facility] - Comment: KMY, CT(ASCP) CT screening location: [place] [address] Administration [place] [address] Review sizing machine tender [facility] - Comment:Result canceled by t he ancillary Pathologist [facility] - Comment:Result canceled by t christa ancillary C. trachomatis RNA NOT DETECTED NOT DETECTED [facility] N. gonorrhoeae RNA NOT DETECTED NOT DETECTED [facility] Comment [facility] Comment: This test was performed using the APTIMA COMBO2 Assay ([employer] The analytical performance characteristics of this assay, when used to test SurePath specimens have been determined by [employer]. Fluid 07/31/2017 1:36 PM RIM TURNING MACHINE OPERATOR 08/01/2017 5:41 AM RIM TURNING MACHINE OPERATOR Narrative Resulting Agency Comment Performing Organization Information: Site ID: Name: [facility] Address: [facility]ly [facility] [place] [address] Director: Popeye Bernard MD Milady Jason MD LAB PATHOLOGY ORDERAB LES Final Result [place], [place] from Last 3 Months or Most Recently Relevant to Health Maintenance Insurance [facility] Care Teams General Accounting Manager Relationship Specialty Start Date End Date Elías Echevarria MD [address] [place] [address] [address] PCP - General Family Medicine 10/02/22
--- OUTSIDE RECORDS SUMMARY | 2024-09-17 17:09 | XMS_ITS | Patient Health Record ---
Author Organization [facility] Address [address] [place] [address] Care Team Providers Care Auto Rental Supervisor Name Role Phone Catherine Nolasco Primary Care Provider Reason For Referral No Information Plan Of Treatment No Information Insurance Providers Payer Name Payer Address Payer Phone Subscriber Number Group Number Insured Name Patient Relationship to Insured Coverage Start Date Coverage End Date [address] [address] [id number] Krystyna Wilde Self - patient is the insured
--- OUTSIDE RECORDS SUMMARY | 2024-09-17 17:09 | XMS_ITS ---
Author Organization [facility] Address [address] [place] [address] Care Team Providers Care Glass Enamel Mixer Name Role Phone Catherine Nolasco Primary Care Provider [phone] Jessica Nunez REASON FOR VISIT Staph infection Medications Medication SIG (Take, Route, Frequency, Duration) Notes Start Date End Date Status Sulfamethoxazole-Trimetho prim 800-160 MG 1 tablet Orally twice a day for 10 days 09/07/2023 09/17/2023 Active Encounters Encounter Location Date Provider Diagnosis 2 [facility] [address] [place] [address] 09/07/2023 Jessica Trevino Staph infection B95.8 Assessments [...] * Krystyna WILDEDOB:[birth year] (33 yo F)Acc No.[id number]:09/07/2023 Patient: Krystyna BAZZI Provider: Wilma Trevino :1990 A ge:32 Y S ex:Female Date:09/07/2023 [facility] [place] [address] Pcp:Catherine Nolasco Subjective: * Chief Complaints: * 1 . Staph infection . * HPI: T ransition of Care: TM call. Patient lives in [place] and consents to TM call. States she [...] improve) * Billing Information: * Visit Code: 14641 Office Visit, New Pt., Level 3. Modifiers: 25 * Procedure Codes: * Electronic signature of Jessica Trevino APN on 09/17/2024 at 05:09 PM CDT Sign off status: Pending * Provider: Wilma Trevino Date: 0 09/07/2023 Generated for Héctor Pepe/Gary on: 0 09/17/2024 05:09 PM CDT History and Physical Notes * HPI (History of Present Illness) Category Sub-Category Detail Notes Category Not es Transition of Care TM call. Patient lives in [place] and consents to TM call. States she has what appears to be a skin infection caused (probably) by Staph aureus. Examination Category Sub-Category Detail Notes Category Not es General Examination Patient is A&Ox3 while on the call. No video capabilities available to this provider.
--- OUTSIDE RECORDS SUMMARY | 2024-09-17 17:09 | XMS_ITS | Data Portability ---
Author Organization [facility] Address [address] [place] [address] [place] [address] Care Team Providers Care Job Setter Name Role Phone RAMA DESAI Primary Care Provider Assessment Encounter Date Assessment Date Assessment LastModified by Organization Details LastModified Time 08/13/2024 08/13/2024 Patient is __28_weeks . Discussed plan. [email or web address] Not available 08/13/2024 16:52:27 08/27/2024 08/27/2024 Patient is __30_weeks . Discussed plan. Not available 08/27/2024 11:40:28 09/10/2024 09/10/2024 Patient is _32__weeks . Discussed plan. [email or web address] Not available 09/10/2024 13:25:34 Plan of Treatment Reminders Order Date Submit Date Provider Last Modified By Organization Details Last Modified Time Details Appointments U/S OB GROWTH 2024 09:00A M ULTRASOUND Not available Not available Not available OB ROUTINE 2024 09:30A M Charlene Murray CNM Not available Not available Not available SURG CSectio n 2024 07:30A M Karen KENNY MD Not available Not available Not available Lab None recorde d. Referral None recorde d. Procedures None recorde d. Surgeries None recorde d. Imaging US, obstetr ic, follow- up 2024 025 [email or web address] [place], [address], [address], [place], [address], 09/10/2024 21:14:50 [facility], follow- up 2024 025 [email or web address] [place], [address], [address], [place], [address], 08/13/2024 18:21:50 Medication Orders None recorde d. Patient TargetsNo targets recorded. Patient InstructionsNo instructions recorded. Reason for Referral None Reported. Results Created Date Observation Date Name Description Value Unit Range Abnormal Flag Note LastModifiedBy Organization Detail LastModifiedTime 08/14/1908/13/2024 HEMAT OCRIT (HCT) HCT 31.7 % (based on docume nted legal sex) 34.0-[address] [facility] (Lab) [address], [place], [address], 08/14/2024 13:44:15 08/14/19 25 08/13/2024 HEMOG LOBIN (HGB) HGB 11.2 g/dL (based on docume nted legal sex) 11.6-1 [address] [facility] (Lab) [address], [place], [address], 08/14/2024 13:44:16 08/14/19 25 08/13/2024 GTT - GESTA SALEEM L COOPERE N, ACOG OB glucose, 1 hour screen 118 mg/dL 70-135 Not Available [facility] (Lab) [address], [place], [address], 08/14/2024 13:44:16 08/14/19 25 08/13/2024 HIV 1/2 ANTIG EN/AN TIBOD Y, REFLE X CONFI RMATI ON HIV antigen/anti body Nonrea ctive nonrea ctive HIV-1 antig en and HIV-1 /HIV- 2 antib odies were not detec caesar. No labor atory evide nce of HIV infec tion. Not Available [facility] (Lab) [address] , [place], [address], 08/14/2024 13:44:17 08/14/19 25 08/13/2024 RPR SCREE N, REFLE X TITER /CONF IRMAT ION RPR qualitative Nonrea ctive nonrea ctive Not Available [facility] (Lab) [address], [place], [address], 08/14/2024 13:44:17 07/16/19 25 07/17/2024 US, obste tric, follo w-up No observ ation record ed. [email or web address] [place] [address], [place], [address], 07/17/2024 12:15:25 07/16/19 25 07/16/2024 US, obste tric, follo w-up No observ ation record ed. [address], [place], [address], 07/22/2024 15:39:17 08/14/19 25 08/13/2024 US, obste tric, follo w-up No [email or web address] [address], [place], [address], 08/13/2024 17:57:05 08/14/19 25 08/13/2024 US, obste tric, follo w-up No observ ation record ed. [email or web address] [address], [place], [address], 08/13/2024 23:48:17 09/11/19 25 09/10/2024 US, obste tric, follo w-up No observ ation record ed. [email or web address] [address], [place], [address], 09/12/2024 10:46:44 09/11/19 25 09/10/2024 US, obste tric, follo w-up No observ ation record ed. [email or web address] [place] [address], [place], [address], 09/10/2024 13:08:01 Result Notes None recorded. Problems Name Problem SNOMED Code Status Onset Date Resolution Date Notes Provider Name and Address Organization Details Recorded Time Pregnanc y 79460587 Completed 202205/14/2023 Raiza Davis null, [facility] 4 12:34:14 Deliveri es by [id number] Completed desires Tarik Oviedo null, [facility] 3 11:07:15 Past pregnanc y history of section 043893865 Active 2022 Jessica Cornelius MD [address], [place], [address], [facility] 3 22:24:12 Pregnanc y 97214593 Active 2023 Raiza Davis null, [facility] 4 12:34:14 Past pregnanc y history of gestatio nal hyperten stanislav 968160380 Active start Claude Murray CNM [address], [place], [address], [facility] 4 12:44:04 Disorder of placenta 824757577 Active Bilobed placenta serial growth Karly Green null, [facility] 5 15:56:30 Disorder of placenta 430473607 Active Bilobed placenta serial growth Karly Green null, [facility] 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 5 09:32:18 Polyhydr amnios 19132665 Active mild Karly Green null, [facility] 5 09:32:18 Pregnanc y 71103491 Completed 201904/16/2020 Raiza Davis [facility] 12:34:14 Problem Notes None recorded. Procedures Surgical History Date Name Laterality Status Provider Name and Address Organization Details Recorded Time 4 Date of Last Pap Smear completed Raiza Davis [facility] 04/02/2024 17:18:39 3 SECTION (SURG) completed Maci Schroeder [facility] 06/19/2023 22:41:25 0 section completed Raiza Davis [facility] 09/17/2020 11:14:55 0 tonsilectomy/ adenoids completed Raiza Davis [facility] 04/23/2024 12:33:56 Imaging Results Imaging Date Name Status LastModified by Organiz ation Details LastModified Time 07/17/2024 US, obstetric, follow-up completed emile [place] [address], [place], [address], 07/17/2024 12:15:25 07/16/2024 US, obstetric, follow-up completed [address], [place], [address], 07/22/2024 15:39:17 08/13/2024 US, obstetric, follow-up completed [email or web address] [place] [address], [place], [address], 08/13/2024 17:57:05 08/13/2024 US, obstetric, follow-up completed maciel [address], [place], [address], 08/13/2024 23:48:17 09/10/2024 US, obstetric, follow-up completed [email or web address] [address] [facility], [place], [address], 09/12/2024 10:46:44 09/10/2024 US, obstetric, follow-up completed [email or web address] [place] [address], [place], [address], 09/10/2024 13:08:01 Procedure Notes None recorded. Medical Equipment None [...] Prescrib ed Elsewher e: No Locat ion: [facility] odify By: nettaric demetrio Diamond ter DateTime : 07/28/19 12 09:45:00 AM Not Available Not Available Not Available Zithromax 1 gram oral packet take 1 packet by oral route dissolve d in 2 ounces of water as a single dose 09/17 completed Prescrib ed Elsewher e: No Locat ion: [facility] odify By: tgingric demetrio Diamond ter DateTime : 01/10/20 14 10:00:00 [...] Prescrib ed Elsewher e: Yes Loca tion: [facility] odify By: [email or web address] E ncounter DateTime : 07/28/19 12 09:45:00 AM Not [...] ed Elsewher e: No Locat ion: [facility] odify By: tgingric h Encoun ter DateTime : 01/10/20 14 10:00:00 AM [...] Elsewher e: No Locat ion: [facility] odify By: amkuhkelly parrishuntmarino DateTime : 07/28/19 12 09:45:00 AM Not Available Not Available Not Available nitrofura ntoin monohydra te/macroc rystals 100 mg capsule TAKE 1 CAPSULE BY MOUTH EVERY 12 HOURS FOR 5 DAYS 06/18 completed Not Available Not Available Not Available Cymbalta 60 mg capsule,d elayed release take 1 capsule by oral route every day 01/09 completed Prescrib ed Elsewher e: Yes Loca tion: [facility] odify By: amkuhkelly garrido DateTime : 07/28/19 12 09:45:00 AM [...] Prescrib ed Elsewher e: Yes Loca tion: [facility] odify By: amkuhkelly Hernandez [email or web address] DateTime : 07/28/19 12 09:45:00 AM Not Available Not Available Not Available Vitals Date Recorded Body weight Body mass index (BMI) Body height Systolic blood pressure Diastolic blood pressure Provider Name and Address Organization Details Last Updated DateTime 08/13/2024 45747.67 076 g 26.2 kg/m2 160.02 cm 105 mm[Hg] 68 mm[Hg] [facility] 16:27:52 Date Recorded Body height Body mass index (BMI) Body weight Systolic blood pressure Diastolic blood pressure Provider Name and Address Organization Details Last Updated DateTime 08/27/2024 160.02 cm 26.2 kg/m2 20996.67 g 110 mm[Hg] 73 mm[Hg] Raizasantos Davis [facility] 5 11:25:17 Date Recorded Body weight Body mass index (BMI) Body height Systolic blood pressure Diastolic blood pressure Provider Name and Address Organization Details Last Updated DateTime 09/10/2024 82432.44 787 g 26.7 kg/m2 160.02 cm 102 mm[Hg] 58 mm[Hg] Raiza [facility] 12:55:42 Social History Question Answer Notes LastModified by Organizat ion Details LastModified Time Tobacco Smoking Status Never Smoker Melissa Fox [facility] 12/20/2022 16:34:04 What Is Your Level Of Alcohol Consumption? None [email or web address] Information not available 09/25/2022 If You Are , What Was Your Level Of Alcohol Consumption Prior To ? Occasional [email or web address] Information not available 12/20/2022 Are You Blind Or Do You Have Difficulty Seeing? No [email or web address] Information not available 09/17/2020 What Is Your Level Of Caffeine Consumption? Occasional Information not available 09/17/2020 In The 14 Days Before Symptom Onset, Have You Had Close Contact With A Laboratory-confir med COVID-19 While That Case Was Ill? No [email or web address] Information not available 09/17/2020 In The 14 Days Before Symptom Onset, Have You Had Close Contact With A Person Who Is Under Investigation For COVID-19 While That Person Was Ill? No [email or web address] Information not available 09/17/2020 Have You Been To An Area Known To Be High Risk For COVID-19? No [email or web address] Information not available 09/17/2020 Are You Deaf Or Do You Have Serious Difficulty Hearing? No Information not available 09/17/2020 What Type Of Diet Are You Following? REGULAR [email or web address] Information not available 09/17/2020 Do You Or Have You Ever Used E-cigarettes Or Vape? Never Used Electronic Cigarettes [email or web address] Information not available 12/20/2022 What Was The Date Of Your Most Recent Tobacco Screening? 09/10/2024 [email or web address] Information not available 09/10/2024 Have You Ever Been Counseled For Unhealthy Alcohol Use? No [email or web address] Information not available 12/20/2022 Do You Use Your Seat Belt Or Car Seat Routinely? Yes [email or web address] Information not available 09/17/2020 Do You Have Smoke And Carbon Monoxide Detectors In Your Home? Yes [email or web address] Information not available 09/17/2020 Do You Or Have You Ever Used Smokeless Tobacco? Never Used Smokeless Tobacco [email or web address] Information not available 12/20/2022 How Much Tobacco Do You Smoke? No [email or web address] Information not available 01/09/2020 Do You Feel Stressed (tense, Restless, Nervous, Or Anxious, Or Unable To Sleep At Night)? EC31764-2 [email or web address] Information not available 09/17/2020 Do You Use Any Illicit Or Recreational Drugs? No [email or web address] Information not available 09/17/2020 Do You Use Sunscreen Routinely? Yes [email or web address] Information not available 09/17/2020 Has Tobacco Cessation Counseling Been Provided? No [email or web address] Information not available 12/20/2022 Do You Or Have You Ever Used Any Other Forms Of Tobacco Or Nicotine? No [email or web address] Information not available 12/20/2022 Sex: Unknown Functional Status Question Answer Note LastModified by Organizat ion Details LastModified Time Do you have difficulty walking or climbing stairs? No [email or web address] Information not available 12/20/2022 Are you able to walk? YESWOREST [email or web address] Information not available 09/17/2020 Are you able to care for yourself? Yes [email or web address] Information not available 12/20/2022 Do you have difficulty dressing or bathing? No [email or web address] Information not available 12/20/2022 What is your exercise level? Occasional [email or web address] Information not available 01/09/2020 Mental Status None recorded. Family History Relationship Description Onset Age of this Age Resolved Age Notes LastModified by Organization Details LastModified Time Mother Anemia [email or web address] Not available 01/17/2023 17:30:54 Mother Cyst of ovary [email or web address] Not available 2023 16:39:36 Mother Seizure disorder Not available 2023 16:39:36 Brother Asthma [email or web address] Not availabl e 01/17/2023 17:30:54 Maternal Grandmother Cyst of ovary [email or web address] Not available 2023 16:39:37 Sister Cyst of ovary [email or web address] Not available 2023 16:39:37 Medical History Condition Response Allergies (Food, seasonal, environmental ) N Other N Breast Cancer N Drug/Latex Allergies/Reactions N Blood Transfusion N Dermatologic Disorders N Lung Disease N Defects or Inherited Disease N Breast Problem N Gestational Diabetes N Hematologic disorders N Anesthesia Complications N History of STI N Deep Vein Thrombosis N Polycystic ovary syndrome N Anxiety Disorder N Autoimmune disease N Arthritis N Infertility N Polyps N Acid Reflux (GERD) N History of abnormal pap N Cancer N Stroke N Varicosities N Neurologic/Epilepsy N Endometriosis N High Cholesterol N Headaches N Fibromyalgia N Kidney Disease N Heart Problems N Kidney or Bladder Problems N Thyroid Problems N GI Problems N Eating Disorder [...] Code Diagnosis ICD10 Code Diagnosis Note [id number] Eren Kenny MD [place] [address] [address] 10/14/2019 10:36:30 10/14/2019 12:05:01 screening 397588544 Z36.89 Routine an tenatal care 395270638 Z34.82 5659 Kierra Valente [place] [address],[place] [address] 10/30/2019 13:48:31 10/30/2019 16:30:13 screening for malformation 608669427 Z36.3 5660 [facility] [address],[place] [address] 10/30/2019 13:48:54 10/30/2019 16:55:27 6605 S Pablo [place] [address],[place] [address] 11/06/2019 16:47:31 11/14/2019 13:54:36 Migraine 84390866 G43.909 Fioricet rx sent Pain in ro und ligament in 4294282879 0655727 O26.899 Pain is likely either round ligament or pulled muscle. We discussed option of trying a maternity belt. She'll let us know if pain isn't better within a few days and that may be next step 9497 [facility] [address],[place] [address] 11/27/2019 16:29:07 11/28/2019 11:21:37 Routine care 854566156 Z34.92 [id number] Eren Kenny MD [place] [address],[place] [address] 12/25/2019 11:35:10 12/25/2019 12:48:38 Routine care 349366121 Z34.82 [id number] Charlene Murray CNM [place] [address],[place] [address] 01/09/2020 14:43:14 01/09/2020 15:30:40 Routine care 647852290 Z34.93 [id number] Charlene Murray CNM [place] [address],[place] [address] 01/26/2020 12:43:08 01/27/2020 16:56:26 Routine care 202156737 Z34.93 [id number] Charlene Murray [facility] [address],[place] [address] 02/13/2020 15:43:37 02/15/2020 22:06:27 Routine care 373004493 Z34.93 [id number] Eren Kenny MD [place] [address],[place] [address] 02/20/2020 15:44:40 02/20/2020 16:21:19 Routine care 844220452 Z34.82 [id number] Eren Kenny MD [place] [address],[place] [address] 02/27/2020 17:32:55 03/01/2020 15:00:33 Routine care 056999340 Z34.82 [id number] Charlene Murray [facility] [address],[place] [address] 03/05/2020 15:28:13 03/05/2020 16:04:50 Routine care 081624656 Z34.93 [id number] Charlene Murray [facility] [address],[place] [address] 03/12/2020 16:29:11 03/15/2020 15:41:35 Routine care 392961286 Z34.93 [id number] Cinthya Dolan [facility] [address],[place] [address] 03/18/2020 15:04:14 03/18/2020 16:13:15 Post-term of 40 to 42 weeks 2847192411 9101 O48.0 42100 Ngozi Farnsworthbety [place] [address],[place] [address] 03/18/2020 15:05:38 03/18/2020 16:04:51 Routine care 862767129 Z34.92 [id number] Eren Kenny MD [place] [address],[place] [address] 03/27/2020 11:43:31 03/27/2020 13:40:45 Postoperative care 515606469 Z48.89 This patient is a 29-year-ol d female presents forpostopf ollow-up. She is 1 weekpostop from a delivery. Her incision is clean dry and intact. Her pain is moderate and she would like pain management continued. Her baby is well. The patient's mood is good. Her bleeding is slowing down. She will follow up in 3 weeks. [id number] Charlene Murray [facility] [address],[place] [address] 04/16/2020 11:29:07 04/16/2020 14:53:58 Endometritis 35476305 N85.00 care 91898759 8 Z39.2 [id number] Charlene Murray [facility] [address],[place] [address] 04/20/2020 11:27:02 04/20/2020 17:30:08 Acute endometritis 82536153 N71.0 80482 [place] [address],[place] [address] 04/26/2020 16:56:09 04/26/2020 18:06:08 Pain in pelvis 36726276 R10.2 [id number] Charlene Murray [facility] [address],[place] [address] 09/17/2020 11:02:52 09/17/2020 11:56:50 Contraception care management 283500728 Z30.9 [id number] [facility] [address],[place] [address] 09/25/2022 13:54:22 09/25/2022 14:28:26 [id number] Ngozi Falcon [place] [address] [place] [address] 09/25/2022 13:54:53 09/26/2022 11:58:59 Amenorrhea 67095816 N91.2 test positive 236359746 Z32.01 Gynecologi c examination 47011101 Z01.419 Z11.51 Risk factors addressed: Tobacco Cessation, [...] annual well woman examinatio n and address [facility] . [id number] [facility] [address],[place] [address] 10/23/2022 16:25:45 10/23/2022 17:48:54 screening 522580233 Z36.82 [id number] Eren Kenny MD [place] [address],[place] [address] 10/23/2022 16:26:27 10/24/2022 14:49:41 Normal in multigravida 6137742650 72708 Z34.81 Z3A.11 Routine an tenatal care 390572378 Z34.82 [id number] [facility] [address],[place] [address] 11/24/2022 16:23:34 11/24/2022 17:14:50 [id number] Charlene Murray [facility] [address],[place] [address] 11/24/2022 16:23:55 11/24/2022 17:23:39 Routine care 842922004 Z34.93 Nausea and vomiting 1693 1999 R11.2 [id number] Gema Lin [place] [address],[place] [address] 12/20/2022 16:33:34 12/20/2022 17:55:16 screening for malformation 694419147 Z36.3 [id number] [facility] [address] [address] 12/20/2022 16:33:55 12/20/2022 18:01:17 Routine care 736837783 Z34.93 [id number] [facility] [address] [address] 01/17/2023 17:06:20 01/17/2023 18:50:02 Routine care 397545715 Z34.93 [id number] [facility] [address],[place] [address] 01/23/2023 17:00:20 01/24/2023 15:07:50 Spotting per vagina in 332041122 O26.852 Z3A.24 [id number] Jessica Cornelius MD [place] [address],[place] [address] 02/14/2023 11:59:10 02/15/2023 16:09:55 Routine care 815813971 Z34.82 Past pregn gertrudis history of section 039424549 Z98.890 [id number] [facility] [address],[place] [address] 02/14/2023 12:00:03 02/14/2023 12:36:09 Uterine size for dates discrepancy 297696668 O26.843 Z3A.27 [id number] [facility] [address] [address] 02/28/2023 18:01:17 03/01/2023 17:45:14 Routine care 823637131 Z34.93 [id number] Kierra Valente [place] [address],[place] [address] 03/14/2023 14:20:03 03/14/2023 15:14:06 Uterine size for dates discrepancy 184183048 O26.843 Z3A.31 [id number] [facility] [address] [address] 03/14/2023 14:20:34 03/14/2023 15:50:28 Routine care 018536281 Z34.93 [id number] Charlene Murray [facility] [address],[place] [address] 03/28/2023 16:27:12 03/28/2023 17:10:08 Routine care 305671535 Z34.93 [id number] Kierra [facility] [address],[place] [address] 04/11/2023 15:58:46 04/11/2023 16:53:20 Uterine size for dates discrepancy 770373423 O26.843 Z3A.35 [id number] [facility] [address] [address] 04/11/2023 15:59:07 04/11/2023 16:53:28 Routine care 236937333 Z34.93 [id number] [facility] [address] [address] 04/18/2023 16:54:50 04/19/2023 08:56:41 Routine care 559978840 Z34.93 [id number] Charlene Murray [facility] [address],[place] [address] 04/25/2023 18:02:24 04/28/2023 13:25:29 Routine care 949444031 Z34.93 [id number] [facility] [address] [address] 05/02/2023 16:43:41 05/02/2023 17:14:47 Routine care 228435409 Z34.93 [id number] [facility] [address],[place] [address] 05/09/2023 11:48:57 05/09/2023 12:53:39 Routine care 209099379 Z34.93 Urinary symptoms 7404037 08 R39.9 [id number] Eren Kenny MD [place] [address],[place] [address] 05/16/2023 16:25:41 05/16/2023 16:28:01 [id number] Eren Kenny MD [place] [address],[place] [address] 05/18/2023 12:04:34 05/18/2023 12:43:50 Urinary symptoms 389069967 R39.9 Postoperative pain 57442 9007 G89.18 This patient is a 32-year-ol [...] have pain. We will continue pain management [id number] Raiza Davis [place] [address],[place] [address] 06/08/2023 11:10:04 06/08/2023 13:40:06 care 990874520 Z39.2 f/u wwe september 2023 [id number] Charlene Murray CNM [place] [address] [address] 04/02/2024 16:39:44 04/02/2024 17:45:48 Amenorrhea 95792902 N91.2 pap up to dateprecau tions and educationf /u 12 week new ob and first looknipt and labs at 10 weeksrevie wed US Venereal d isease screening 654492134 Z11.3 Nausea and vomiting 1693 2000 R11.2 Gynecologi c examination 85694076 Z01.419 [id number] Gema Lin [place] [address],[place] [address] 04/02/2024 16:39:31 04/02/2024 17:05:07 [id number] [facility] [address],[place] [address] 04/23/2024 11:31:00 04/23/2024 11:54:46 screening 966122730 Z36.82 Z3A.12 [id number] [facility] [address] [address] 04/23/2024 11:32:41 04/23/2024 12:46:43 Gestation period, 12 weeks 97499572 Z3A.12 Routine an tenatal care 178845151 Z34.93 [id number] [facility] [address],[place] [address] 06/18/2024 16:49:22 06/19/2024 04:31:03 screening for malformation 279315065 Z36.3 Z3A.20 [id number] [facility] [address] [address] 06/18/2024 16:49:54 06/18/2024 18:28:48 Gestation period, 20 weeks 67578698 Z3A.20 continue vitamin [id number] [facility] [address],[place] [address] 07/16/2024 16:59:02 07/16/2024 17:59:04 Placental condition affecting management of mother 593238705 O43.92 Z3A.24 [id number] [facility] [address] [address] 07/16/2024 16:59:19 07/16/2024 18:01:51 Gestation period, 24 weeks [id number] Z3A.24 continue vitamin [id number] [facility] [address] [address] 08/13/2024 15:30:28 08/13/2024 16:14:31 Bilobate placenta [id number] O43.199 Z3A.28 [id number] [facility] [address] [address] 08/13/2024 15:30:51 08/13/2024 16:54:44 Gestation period, 28 weeks [id number] Z3A.28 continue vitamin [id number] Charlene Murray [facility] [address] [address] 08/27/2024 11:04:10 08/27/2024 11:41:10 Gestation period, 30 weeks 02856612 Z3A.30 continue vitamin [id number] [facility] [address] [address] 09/10/2024 11:52:30 09/10/2024 13:20:04 Bilobate placenta [id number] O43.193 Z3A.28 [id number] Charlene Murray [facility] [address] [address] 09/10/2024 11:52:43 09/10/2024 13:27:37 Gestation period, 32 weeks 7971011 Z3A.32 Health Concerns Section Related Observation LastModified by Organization Detai ls LastModified Time None Recorded Concern Status LastModified by Organization Details LastModified Time None Recorded Advance Directives Directive None Recorded Payers Encounter Date Sequence Insurance Name Policy Number Policy Hurtado Covered Member ID Hurtado Member ID Guarantor Name 08/13/2024 1 [facility] - DOS ON OR AFTER 20 (MEDICAID REPLACEMENT - HMO) Krystyna Wilde [id number] Krystyna Wilde 08/13/2024 1 [facility] - DOS ON OR AFTER 20 (MEDICAID REPLACEMENT - HMO) Krystyna Wilde [id number] Krystyna Wilde 08/27/2024 1 [facility] - DOS ON OR AFTER 20 (MEDICAID REPLACEMENT - HMO) Krystyna Wilde [id number] Krystyna Wilde 09/10/2024 1 [facility] - DOS ON OR AFTER 20 (MEDICAID REPLACEMENT - HMO) Krystyna Wilde [id number] Krystyna Wilde 09/10/2024 1 [facility] - [facility] ON OR AFTER 12/02/20 (MEDICAID REPLACEMENT - HMO) Krystyna Wilde [id number] Krystyna Wilde OBGyn Episode Ob Episode Information Episode Created Date Number of Fetuses Patient Bloodtype Patient rh Status Prepregnancy Weight lbs Domestic Partner Domestic Partner Phone 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 10/14/19 20 1 O Positive 118 [...] Gestation 0 [email or web address] 10/14/2019 03/12/20 20 0 Pre-marvin Flowsheet Flowsheet Date 10/14/2019 Lepe Score Blood Edema Fundus Height Fundus Units Glucose Ketones Leukocytes Nitrite Labor Signs Protein Cervic Dilation Cervic Effacement Cervic Station 18 trace Type Weight in lbs Pre/Post Dialysis Refused Weight 125.240746296740 BP Diastolic BP Location Tested BP Systolic [...] Weight in lbs Pre/Post Dialysis Refused Weight 127.793740275884 BP Diastolic BP Location Tested BP Systolic BP Type 66 101 sitting Fetus Heart Rate Present A 150 Fetus Movement Comments Pt doing well. No complaints . I did discuss short nasal bone on u/s. I would like to schedule mfm consult. Pt case sent to [facility] to schedule. Flowsheet Date 11/06/2019 Lepe Score Blood Edema Fundus Height Fundus Units Glucose Ketones Leukocytes Nitrite Labor Signs Protein Cervic Dilation Cervic Effacement Cervic Station trace Type Weight in lbs Pre/Post Dialysis Refused Weight 129.026044448111 BP Diastolic BP Location Tested BP Systolic BP Type 65 104 Fetus Heart Rate Present Fetus Movement Comments glucose negative See note (p roblem visit for LLQ pain and migraine) Flowsheet Date 11/27/2019 Lepe Score Blood Edema Fundus Height Fundus Units Glucose Ketones Leukocytes Nitrite Labor Signs Protein Cervic Dilation Cervic Effacement Cervic Station 24 trace Type Weight in lbs Pre/Post Dialysis Refused Weight 134.205882350154 BP Diastolic BP Location Tested BP Systolic [...] Weight in lbs Pre/Post Dialysis Refused Weight 138.026056079528 BP Diastolic BP Location Tested BP Systolic BP Type 77 118 Fetus Heart Rate Present A 145 Fetus Movement A Yes Comments Flowsheet Date 01/09/2020 Lepe Score Blood Edema Fundus Height Fundus Units Glucose Ketones Leukocytes Nitrite Labor Signs Protein Cervic Dilation Cervic Effacement Cervic Station 31 Type Weight in lbs Pre/Post Dialysis Refused Weight 140.360266449981 BP Diastolic BP Location Tested BP Systolic [...] Weight in lbs Pre/Post Dialysis Refused Weight 148.491074049968 BP Diastolic BP Location Tested BP Systolic [...] Weight in lbs Pre/Post Dialysis Refused Weight 148.293307279499 BP Diastolic BP Location Tested BP Systolic BP Type 77 R arm 115 sitting Fetus Heart Rate Present A 145 Fetus Movement A Yes Comments Flowsheet Date 02/27/2020 Lepe Score Blood Edema Fundus Height Fundus Units Glucose Ketones Leukocytes Nitrite Labor Signs Protein Cervic Dilation Cervic Effacement Cervic Station 38 trace Type Weight in lbs Pre/Post Dialysis Refused Weight 149.613091116134 BP Diastolic BP Location Tested BP Systolic BP Type 81 R arm 115 sitting Fetus Heart Rate Present A 145 Fetus Movement A Yes Comments Flowsheet Date 03/05/2020 Lepe Score Blood Edema Fundus Height Fundus Units Glucose Ketones Leukocytes Nitrite Labor Signs Protein Cervic Dilation Cervic Effacement Cervic Station 39 trace 1cm 50% -3 Type Weight in lbs Pre/Post Dialysis Refused Weight 150.174137401414 BP Diastolic BP Location Tested BP Systolic [...] Weight in lbs Pre/Post Dialysis Refused Weight 150.511584943474 BP Diastolic BP Location Tested BP Systolic [...] Weight in lbs Pre/Post Dialysis Refused Weight 152.223315141796 BP Diastolic BP Location Tested BP Systolic [...] Weight in lbs Pre/Post Dialysis Refused Weight 134.315774003404 BP Diastolic BP Location Tested BP Systolic BP Type 75 R arm 111 sitting Fetus Heart Rate Present Fetus Movement Comments Flowsheet Date 04/16/2020 Lepe Score Blood Edema Fundus Height Fundus Units Glucose Ketones Leukocytes Nitrite Labor Signs Protein Cervic Dilation Cervic Effacement Cervic Station Type Weight in lbs Pre/Post Dialysis Refused Weight 133.731585401542 BP Diastolic BP Location Tested BP Systolic [...] Estim ated Date of Delivery false Thalassemia (Maltese, Icelandic, Mediterranean, Or Background): MCV < 80 false Neural Tube Defect (Meningomyelocele, Spina Bifi da, Or Anencephaly) false Congenital Heart Defect false Down Syndrome false Armando-Sachs (eg, Gnosticist, Cajun, Syriac-[place]) f alse Gertrudis Disease false Sickle Cell Disease Or Trait () false Hemophilia Or Other Blood Disorders false Muscular Dystrophy false Cystic Fibrosis false Cygnet's Chorea false Intellectual Disability/Autism false If Yes, [...] Domestic Partner Domestic Partner Phone 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 11/06/19 20 1 CLOSED Fetus Data [...] Domestic Partner Domestic Partner Phone 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 03/26/20 20 1 DELETED Sergio Calculation [...] Domestic Partner Domestic Partner Phone 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 10/24/19 23 1 O Positive 124 [...] Weight in lbs Pre/Post Dialysis Refused Weight 120.053584079652 BP Diastolic BP Location Tested BP Systolic [...] Weight in lbs Pre/Post Dialysis Refused Weight 122.553249796037 BP Diastolic BP Location Tested BP Systolic [...] Weight in lbs Pre/Post Dialysis Refused Weight 126.46081346640 BP Diastolic BP Location Tested BP Systolic [...] Weight in lbs Pre/Post Dialysis Refused Weight 132.021946324165 BP Diastolic BP Location Tested BP Systolic BP Type 71 101 Fetus Heart Rate Present Fetus Movement A Yes Comments patient is having cramping, BH contractions, and nausea. reviewed PTL precautions, education done, next visit growth and GCT, [facility] Flowsheet Date 01/23/2023 Lepe [...] Weight in lbs Pre/Post Dialysis Refused Weight 139.876959492762 BP Diastolic BP Location Tested BP Systolic [...] Weight in lbs Pre/Post Dialysis Refused Weight 141.725100958509 BP Diastolic BP Location Tested BP Systolic [...] Weight in lbs Pre/Post Dialysis Refused Weight 143.198040681550 BP Diastolic BP Location Tested BP Systolic [...] Weight in lbs Pre/Post Dialysis Refused Weight 148.845788096014 BP Diastolic BP Location Tested BP Systolic [...] Weight in lbs Pre/Post Dialysis Refused Weight 149.427477028163 BP Diastolic BP Location Tested BP Systolic [...] Weight in lbs Pre/Post Dialysis Refused Weight 149.680112162423 BP Diastolic BP Location Tested BP Systolic [...] Weight in lbs Pre/Post Dialysis Refused Weight 152.860229836987 BP Diastolic BP Location Tested BP Systolic [...] Weight in lbs Pre/Post Dialysis Refused Weight 153.604490833665 BP Diastolic BP Location Tested BP Systolic [...] Weight in lbs Pre/Post Dialysis Refused Weight 154.923643995231 BP Diastolic BP Location Tested BP Systolic [...] Estim ated Date of Delivery false Thalassemia (Maltese, Icelandic, Mediterranean, Or Background): MCV < 80 false Neural Tube Defect (Meningomyelocele, Spina Bifi da, Or Anencephaly) false Congenital Heart Defect false Down Syndrome false Armando-Sachs (eg, Gnosticist, Cajun, Syriac-[place]) f alse Gertrudis Disease false Sickle Cell Disease Or Trait () false Hemophilia Or Other Blood Disorders false Muscular Dystrophy false Cystic Fibrosis false Cygnet's Chorea false Intellectual Disability/Autism false If Yes, [...] Domestic Partner Domestic Partner Phone 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 04/23/20 24 1 O Positive 129 Ca;eb Richard OPEN Fetus Data First Name Last Name Admitted to NICU Weight (g) Sex Living Outcome Pediatric Complications Fetus ID Race Codes Race Delivery Type [id number] Problems Problem Notes short interval -renetta ns rpt c/s considering pp IUD Problem Name Start Date End Date Resolution Snomed Code Not e Past history of gestational hypertension 534904246 start bASA Disorder of placenta [id number] Bilobed placenta serial growth Polyhydramnios 59130435 mild Sergio Calculation Initial Sergio Date Initial Exam Date Initial Exam Provider Initial Ultrasound Date Last Menstrual Period Date Ultra Sound Weeks Gestation 11/04/2024 04/02/2024 Charlene Trevor 04/02/2024 01/29/2024 9 Eighteen To Twenty Week [...] Weight in lbs Pre/Post Dialysis Refused Weight 128.036806833312 BP Diastolic BP Location Tested BP Systolic BP Type 80 122 Fetus Heart Rate Present Fetus Movement A No Comments Patient is having some nause a and vomiting. reviewed hx c/s x 2, plan rpt with dr. kenny, start bASA hx HTN first , begin routine care [...] Type Weight in lbs Pre/Post Dialysis Refused 134.236365136169 BP Diastolic BP Location Tested BP Systolic [...] Type Weight in lbs Pre/Post Dialysis Refused 141.360897664965 BP Diastolic BP Location Tested BP Systolic [...] Type Weight in lbs Pre/Post Dialysis Refused 148.867598854420 BP Diastolic BP Location Tested BP Systolic BP Type 68 105 Fetus Heart Rate Present Fetus Movement A Yes Comments Patient is having some BH co ntractions. declines tdap doing well! engaged! +FM, EFW 37 %, breech, tubal consent signed f/u 2 weeks gct today Flowsheet Date 08/27/2024 Lepe Score Blood Edema Fundus Height Fundus Units Glucose Ketones Leukocytes Nitrite Labor Signs Protein Cervic Dilation Cervic Effacement Cervic Station neg none Type Weight in lbs Pre/Post Dialysis Refused Weight 148.988735380812 BP Diastolic BP Location Tested BP Systolic BP Type 73 110 Fetus Heart Rate Present A 148 Present Fetus Movement A Yes Comments Patient is having pressure, cramping, brown discharge and nausea. was seen in LD and d/c home, discharge stopped, +FM, low on water hasnt been drinking much, will help with cramping, will plan to increase, schedule rpt c/s with salpingectomy, precautions and education f/u 2 weeks Flowsheet Date 09/10/2024 Lepe Score Blood Edema Fundus Height Fundus Units Glucose Ketones Leukocytes Nitrite Labor Signs Protein Cervic Dilation Cervic Effacement Cervic Station Type Weight in lbs Pre/Post Dialysis Refused BP Diastolic BP Location Tested BP Systolic BP Type Fetus Heart Rate Present Fetus Movement Comments Flowsheet Date 09/10/2024 Lepe Score Blood Edema Fundus Height Fundus Units Glucose Ketones Leukocytes Nitrite Labor Signs Protein Cervic Dilation Cervic Effacement Cervic Station neg none Type Weight in lbs Pre/Post Dialysis Refused 151.197019821951 BP Diastolic BP Location Tested BP Systolic BP Type 58 102 Fetus Heart Rate Present Fetus Movement A Yes Comments Patient states that is havin g some pain and nausea. reviewed US, mild ply will rpt in 2 weeks, efw 59%, call for preadmit, education and precautions f/u 2 weeks Menstrual History Last Menstrual Date Menses Monthly [...]
--- OUTSIDE RECORDS SUMMARY | 2024-09-17 17:09 | XMS_ITS | Clinical Summary ---
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 Sole Leveling Machine Operator [facility] - Comment: DAVID ESPINO(ASCP) CT screening location: [place] [address] [place] [address] Review bull wheel worker [facility]CELED [facility] Comment:Result canceled by t he ancillary Pathologist [facility]CELED [facility] Comment:Result canceled by t he ancillary C. trachomatis RNA NOT DETECTED NOT DETECTED [facility] N. gonorrhoeae RNA NOT DETECTED NOT DETECTED [facility] Comment [facility] - Comment: This test was performed using the APTIMA COMBO2 Assay ([employer] The analytical performance characteristics of this assay, when used to test SurePath specimens have been determined by [facility]. Fluid 07/31/2017 1:36 PM STAFF FORESTER 08/01/2017 5:41 AM STAFF FORESTER Narrative Resulting Agency Comment Performing Organization Information: Site ID: Name: [facility] Address: [address] [place] [address] Director: Popeye Bernard MD us Milady Jason MD LAB PATHOLOGY ORDERAB LES Final Result [facility] [place] from Last 3 Months or Most Recently Relevant to Health Maintenance Insurance [facility] Care Teams Citrus Fruit Colorer Relationship Specialty Start Date End Date Elías Echevarria MD [address] [place] [address] PCP - General Family Medicine 10/02/22
--- OUTSIDE RECORDS SUMMARY | 2024-09-17 17:09 | XMS_ITS | Clinical Summary ---
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
== END 2024-09-17 17:05 | disposition home or self-care (01) ==
PROVIDERS: PCP Family Medicine; Visit Provider Obstetrics & Gynecology
DX: M79.606 Pain in leg, unspecified (principal)
CPT/HCPCS: 93971

== ENCOUNTER 2024-11-04 13:21 | Outpatient (CLI) | payer OTHER, SELFPAY ==
--- OUTSIDE RECORDS SUMMARY | 2024-11-04 13:35 | XMS_ITS | Clinical Summary ---
Author Organization [facility] Address [address] [place] [address] Care Team Providers Care Cuff Cutter Name Role Phone Rosemary Manzano MD Primary Care Provider Source Comments [facility],non-owned Affiliates and Associated Physician Practices is amultiple site organization consisting of ambulatory clinics and hospital sitesin [place], [place], [place] and [place]. This disclosure is being madepursuant to the Care Everywhere program and may not contain all information available regarding this patient. 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 Gender Identity Not on file Sexual Orientation Not on file Last Filed Vital Signs Vital Sign Reading Time Taken Comments Blood Pressure - - Pulse - - Temperature - - Respiratory Rate - - Oxygen Saturation - - Inhaled Oxygen Concentration - - Weight 61.7 kg (136 lb) 06/06/2022 9:34 AM CONTACT LENS FITTER Height 160 cm (5' 3) 06/06/2022 9:34 AM CONTACT LENS FITTER Body Mass Index 24.09 06/06/2022 9:34 AM CONTACT LENS FITTER Plan of Treatment Health Maintenance Due Date [...] patient's age to complete this topic Insurance [facility] Care Teams Cuff Cutter Relationship Specialty Start Date End Date Rosemary Manzano MD [address] [place] [phone] PCP - General 03/29/20
--- OUTSIDE RECORDS SUMMARY | 2024-11-04 13:36 | XMS_ITS | Patient Health Record ---
Author Organization [facility] Address [address] [place] [address] Care Team Providers Care It Corporate Recruiter Name Role Phone Catherine Nolasco Primary Care Provider Reason For Referral No Information Plan Of Treatment No Information Insurance Providers Payer Name Payer Address Payer Phone Subscriber Number Group Number Insured Name Patient Relationship to Insured Coverage Start Date Coverage End Date [address] [address] [id number] Krystyna Wilde Self - patient is the insured
--- OUTSIDE RECORDS SUMMARY | 2024-11-04 13:36 | XMS_ITS | Data Portability ---
Author Organization [facility] Address [address] [place] [address] [place] [address] Care Team Providers Care Health Information Technician Name Role Phone RAMA DESAI Primary Care Provider [phone] Assessment Encounter Date Assessment Date Assessment LastModified by Organization Details LastModified Time 10/17/2024 10/17/2024 Patient is _37__weeks . Discussed plan. [email or web address] Not available 10/17/2024 12:31:27 10/24/2024 10/24/2024 Patient is _38__weeks . Discussed plan. [email or web address] Not available 10/24/2024 14:09:26 10/31/2024 10/31/2024 Patient is ___weeks . Discussed plan. [email or web address] Not available 10/31/2024 12:28:30 Plan of Treatment Reminders Order Date Submit Date Provider Last Modified By Organization Details Last Modified Time Details Appointments SURG CSection 2024 07:30A Rogelio KENNY MD Not available Not available Not available SURG POST OP 2024 02:45P Rogelio KENNY MD Not available Not available Not available Lab None recorded. Referral None recorded. Procedures None recorded. Surgeries None recorded. Imaging US, obstetric , follow-up 2024 025 [email or web address] [facility], [address], [place], [address], 10/24/2024 17:32:47 US, obstetric , follow-up 2024 025 [email or web address] [facility], [address], [place], [address], 09/23/2024 22:17:18 Medication Orders None recorded. Patient TargetsNo targets recorded. Patient InstructionsNo instructions recorded. Reason for Referral None Reported. Results Created Date Observation Date Name Description Value Unit Range Abnormal Flag Note LastModifiedBy Organization Detail LastModifiedTime 10/18/1910/17/2024 CULTU RE: GROUP B STREP SCREE N, REFLE X SUSCE PTIBI LITY result report SEE RESULT S BELOW Test: Cultu re: Group B Strep , Refle x Susce ptibi lity ([facility]/ [facility] ) Speci men Sourc e: Vagin a/Rec kwaku Speci men Type: Vagin al/Re ctal Speci men Date: 2024 1129 Resul t Date: 2024 1533 Resul t Statu s: Final resul t Abnor mal: No Resul ting Lab: [facility] [address] [facility] [address] Tel: CULTU RE ----- ----- ----- --- No Group B strep isola caesar at 2 days (rachel ctive broth enhan cemen t) Not Available [facility] (Lab) [address] [facility], [place], [address], 10/20/2024 16:37:38 09/11/19 25 09/10/2024 US, obste tric, follo w-up No observ ation record ed. [email or web address] [address], [place], [address], 09/12/2024 10:46:44 09/11/19 25 09/10/2024 US, obste tric, follo w-up No observ ation record ed. [email or web address] [facility] [address], [place], [address], 09/10/2024 13:08:01 09/18/19 25 09/17/2024 US, doppl er, venou s No observ ation record ed. [email or web address] [facility] [address], [place], [address], 09/18/2024 09:23:35 09/18/19 25 09/17/2024 US, doppl er, venou s No observ ation record ed. [email or web address] [address] [facility] [address], [place], [address], 09/18/2024 09:24:07 09/24/19 25 09/23/2024 US, obste tric, follo w-up No observ ation record ed. [email or web address] [facility] [address], [place], [address], 09/23/2024 14:43:56 09/24/19 25 09/23/2024 US, obste tric, follo w-up No observ ation record ed. STELLA [address], [place], [address], 09/29/2024 20:49:06 10/25/19 25 10/24/2024 US, obste tric, follo w-up No observ ation record ed. [email or web address] [facility] [address], [place], [address], 10/24/2024 14:01:58 10/25/19 25 10/24/2024 US, obste tric, follo w-up No observ ation record ed. [email or web address] [address], [place], [address], 10/30/2024 11:24:43 Result Notes None recorded. Problems Name Problem SNOMED Code Status Onset Date Resolution Date Notes Provider Name and Address Organization Details Recorded Time Pregnanc y 02510525 Completed 202205/14/2023 Raiza Davis [facility], [facility] 12:34:14 Deliveri es by [id number] Completed desires Tarik Oviedo null, [facility] 3 11:07:15 Past pregnanc y history of section 437505122 Active 2022 Jessica Cornelius MD [address], [place], [address], [facility] 3 22:24:12 Pregnanc y 02211437 Active 2023 Raiza Davis null, [facility] 4 12:34:14 Past pregnanc y history of gestatio nal hyperten stanislav 985550717 Active start Claude Murray CNM [address], [place], [address], [facility] 4 12:44:04 Disorder of placenta 190080602 Active Bilobed placenta serial growth Karly Wang null, [facility] 5 15:56:30 Disorder of placenta 562630335 Active Bilobed placenta serial growth Karly Green null, [facility] 5 15:56:30 Polyhydr amnios 74918003 Active mild resolved Karly Green null, [facility] 5 18:12:15 Polyhydr amnios 61753538 Active mild resolved Karly Green null, [facility] 5 18:12:16 Pregnanc y 09912429 Completed 201904/16/2020 Raiza Davis null, [facility] 4 12:34:14 Problem Notes None recorded. Procedures Surgical History Date Name Laterality Status Provider Name and Address Organization Details Recorded Time 4 Date of Last Pap Smear completed Raiza Davis [facility] 04/02/2024 17:18:39 3 SECTION (SURG) completed Maci Schroeder [facility] 06/19/2023 22:41:25 0 section completed Raiza Davis [facility] 09/17/2020 11:14:55 0 tonsilectomy/ adenoids completed Raiza Davis [facility] 04/23/2024 12:33:56 Imaging Results None recorded. Procedure Notes None recorded. Medical Equipment None [...] Prescrib ed Elsewher e: No Locat ion: [facility] M odify By: selina Diamond ter DateTime : 07/28/19 12 09:45:00 AM Not Available Not Available Not Available Zithromax 1 gram oral packet take 1 packet by oral route dissolve d in 2 ounces of water as a single dose 09/17 completed Prescrib ed Elsewher e: No Locat ion: [facility] M odify By: selina Diamond ter DateTime : [...] route every day 01/09 completed Prescrib ed [facility] e: Yes Loca tion: [facility] M odify By: carmen garrido DateTime : 07/28/19 12 09:45:00 AM Not Available Not Available Not Available ondansetr on 4 mg disintegr ating tablet Place one tablet under tongue and let dissolve every 4-6 hours as needed for nausea. 09/23 completed Not Available Not Available Not Available Necon 0.5/35 (28) 0.5 mg-35 mcg tablet [...] Prescrib ed Elsewher e: No Locat ion: [facility] odify By: selina wellington DateTime : 01/10/20 14 10:00:00 AM [...] Prescrib ed Elsewher e: No Locat ion: [facility] odify By: carmen garrido DateTime : 07/28/19 [...] Prescrib ed Elsewher e: Yes Loca tion: [facility] odify By: carmen garrido DateTime : 07/28/19 [...] Prescrib ed Elsewher e: Yes Loca tion: [facility] odify By: amallan parrishuntmarino DateTime : 07/28/19 12 09:45:00 AM Not Available Not Available Not Available Vitals Date Recorded Body height Body mass index (BMI) Body weight Systolic blood pressure Diastolic blood pressure Provider Name and Address Organization Details Last Updated DateTime 09/23/2024 160.02 cm 27.1 kg/m2 18946.63 g 112 mm[Hg] 70 mm[Hg] Raiza Davis [facility] 11:19:53 Date Recorded Body height Body mass index (BMI) Body weight Systolic blood pressure Diastolic blood pressure Provider Name and Address Organization Details Last Updated DateTime 10/17/2024 160.02 cm 27.8 kg/m2 70465 g 104 mm[Hg] 71 mm[Hg] Raiza Davis [facility] 11:46:48 Date Recorded Body weight Body mass index (BMI) Body height Systolic blood pressure Diastolic blood pressure Provider Name and Address Organization Details Last Updated DateTime 10/24/2024 13282.59 446 g 28 kg/m2 160.02 cm 110 mm[Hg] 73 mm[Hg] Raiza Davis [facility] 12:48:28 Date Recorded Body weight Systolic blood pressure Diastolic blood pressure Provider Name and Address Organization Details Last Updated DateTime 10/31/2024 65016.1868 3 g 109 mm[Hg] 72 mm[Hg] Humaira Almanza [facility] 10/31/2024 12:29:04 Social History Question Answer Notes LastModified by Organizat ion Details LastModified Time Tobacco Smoking Status Never Smoker Melissa [email or web address], [facility] 12/20/2022 16:34:04 If You Are , What Was Your Level Of Alcohol Consumption Prior To ? Occasional [email or web address] Information not available 12/20/2022 Are You Blind Or Do You Have Difficulty Seeing? No [email or web address] Information n ot available 09/17/2020 What Is Your Level Of Caffeine Consumption? Occasional [email or web address] Information not available 09/17/2020 In The 14 Days Before Symptom Onset, Have You Had Close Contact With A Laboratory-confirm ed COVID-19 While That Case Was Ill? No [email or web address] Information n ot available 09/17/2020 In The 14 Days Before Symptom Onset, Have You Had Close Contact With A Person Who Is Under Investigation For COVID-19 While That Person Was Ill? No [email or web address] Information not available 09/17/2020 Have You Been To An Area Known To Be High Risk For COVID-19? No Information not available 09/17/2020 Are You Deaf Or Do You Have Serious Difficulty Hearing? No [email or web address] Information not available 09/17/2020 What Type Of Diet Are You Following? REGULAR [email or web address] Information n ot available 09/17/2020 What Was The Date Of Your Most Recent Tobacco Screening? 10/17/2024 [email or web address] Information not available 10/17/2024 Have You Ever Been Counseled For Unhealthy Alcohol Use? No Information not available 12/20/2022 Do You Use Your Seat Belt Or Car Seat Routinely? Yes [email or web address] Information not available 09/17/2020 Do You Have Smoke And Carbon Monoxide Detectors In Your Home? Yes [email or web address] Information not available 09/17/2020 How Much Tobacco Do You Smoke? No [email or web address] Information not available 01/09/2020 Do You Use Sunscreen Routinely? Yes [email or web address] Information not available 09/17/2020 Has Tobacco Cessation Counseling Been Provided? No [email or web address] Information not available 12/20/2022 Do You Have Difficulty Walking Or Climbing Stairs? No [email or web address] Information not available 12/20/2022 Sex: Unknown Functional Status Question Answer Note LastModified by Organizat ion Details LastModified Time Do you use any illicit or recreational drugs? No [email or web address] Information not available 09/17/2020 Do you or have you ever used any other forms of tobacco or nicotine? No [email or web address] Information not available 12/20/2022 What is your level of alcohol consumption? None [email or web address] Information not available 09/25/2022 Do you or have you ever used smokeless tobacco? Never used smokeless tobacco Information not available 12/20/2022 Are you able to walk? YESWOREST [email or web address] Information not available 09/17/2020 Are you able to care for yourself? Yes Information not available 12/20/2022 Do you have difficulty dressing or bathing? No [email or web address] Information not available 12/20/2022 Do you or have you ever used e-cigarettes or vape? Never used electronic cigarettes [email or web address] Information not available 12/20/2022 What is your exercise level? Occasional [email or web address] Information not available 01/09/2020 Mental Status Question Answer Note LastModified by Organization D etails LastModified Time Do you feel stressed (tense, restless, nervous, or anxious, or unable to sleep at night)? [id number] [email or web address] Information not available 09/17/2020 Family History Relationship Description Onset Age of this Age Resolved Age Notes LastModified by Organization Details LastModified Time Mother Anemia [email or web address] Not available 01/17/2023 17:30:54 Mother Cyst of ovary [email or web address] Not available 2023 16:39:36 Mother Seizure disorder Not available 2023 16:39:36 Brother Asthma Not availabl e 01/17/2023 17:30:54 Maternal Grandmother Cyst of ovary [email or web address] Not available 2023 16:39:37 Sister Cyst of ovary Not available 2023 16:39:37 Medical History Condition [...] Code Diagnosis Note [id number] Eren Kenny MD [facility] [address],[place] [address] 10/14/2019 10:36:30 10/14/2019 12:05:01 screening 375675599 Z36.89 Routine an tenatal care 243913698 Z34.82 [id number] Eren Kenny MD [facility] [address],[place] [address] 10/30/2019 13:48:31 10/30/2019 16:30:13 screening for malformation 771991320 Z36.3 5660 [facility] [address],[place] [address] 10/30/2019 13:48:54 10/30/2019 16:55:27 [id number] Taryn Shah MD [facility] [address],[place] [address] 11/06/2019 16:47:31 11/14/2019 13:54:36 Migraine 67342927 G43.909 Fioricet rx sent Pain in ro und ligament in 5083062317 6457840 O26.899 Pain is likely either round ligament or pulled muscle. We discussed option of trying a maternity belt. She'll let us know if pain isn't better within a few days and that may be next step 9497 Ngozi Falcon CNM [facility] [address],[place] [address] 11/27/2019 16:29:07 11/28/2019 11:21:37 Routine care 753260692 Z34.92 [id number] Eren Kenny MD [facility] [address] [place] [address] 12/25/2019 11:35:10 12/25/2019 12:48:38 Routine care 574415086 Z34.82 [id number] Charlene Murray [facility] [address],[place] [address] 01/09/2020 14:43:14 01/09/2020 15:30:40 Routine care 898628835 Z34.93 [id number] Charlene Murray [facility] [address],[place] [address] 01/26/2020 12:43:08 01/27/2020 16:56:26 Routine care 521045287 Z34.93 [id number] Charlene Murray [facility] [address],[place] [address] 02/13/2020 15:43:37 02/15/2020 22:06:27 Routine care 637729337 Z34.93 [id number] Eren Kenny MD [facility] [address],[place] [address] 02/20/2020 15:44:40 02/20/2020 16:21:19 Routine care 773768614 Z34.82 [id number] Eren Kenny MD [facility] [address],[place] [address] 02/27/2020 17:32:55 03/01/2020 15:00:33 Routine care 578540360 Z34.82 [id number] Charlene Murray [facility] [address],[place] [address] 03/05/2020 15:28:13 03/05/2020 16:04:50 Routine care 532914365 Z34.93 [id number] [facility] [address] [place] [address] 03/12/2020 16:29:11 03/15/2020 15:41:35 Routine care 153682243 Z34.93 [id number] Eren Kenny MD [facility] [address] [place] [address] 03/18/2020 15:04:14 03/18/2020 16:13:15 Post-term of 40 to 42 weeks 6945902369 9101 O48.0 07044 Ngozi Falcon [facility] [address],[place] [address] 03/18/2020 15:05:38 03/18/2020 16:04:51 Routine care 591807066 Z34.92 [id number] Eren Kenny MD [facility] [address],[place] [address] 03/27/2020 11:43:31 03/27/2020 13:40:45 Postoperative care 484329724 Z48.89 This patient is a 29-year-ol d female presents forpostopf ollow-up. She is 1 weekpostop from a delivery. Her incision is clean dry and intact. Her pain is moderate and she would like pain management continued. Her baby is well. The patient's mood is good. Her bleeding is slowing down. She will follow up in 3 weeks. [id number] Charlene Murray CNM [facility] [address],[place] [address] 04/16/2020 11:29:07 04/16/2020 14:53:58 Endometritis 05878313 N85.00 care 76014528 8 Z39.2 00857 [facility] [address],[place] [address] 04/20/2020 11:27:02 04/20/2020 17:30:08 Acute endometritis 13218729 N71.0 [id number] Eren Kenny MD [facility] [address],[place] [address] 04/26/2020 16:56:09 04/26/2020 18:06:08 Pain in pelvis 13464356 R10.2 09081 [facility] [address] [place] [address] 09/17/2020 11:02:52 09/17/2020 11:56:50 Contraception care management 603331953 Z30.9 [id number] Eren Kenny MD [facility] [address],[place] [address] 09/25/2022 13:54:22 09/25/2022 14:28:26 [id number] Ngoziberny Falcon [facility] [address],[place] [address] 09/25/2022 13:54:53 09/26/2022 11:58:59 Amenorrhea 56370538 N91.2 test positive 661232615 Z32.01 Gynecologi c examination 57907497 Z01.419 Z11.51 Risk factors addressed: Tobacco Cessation, [...] well woman examinatio n and address [facility] . [id number] Eren Kenny MD [facility] [address],[place] [address] 10/23/2022 16:25:45 10/23/2022 17:48:54 screening 509632870 Z36.82 [id number] Eren Kenny MD [facility] [address],[place] [address] 10/23/2022 16:26:27 10/24/2022 14:49:41 Normal in multigravida 1993843520 67424 Z34.81 Z3A.11 Routine an tenatal care 211996754 Z34.82 [id number] Eren Kenny MD [facility] [address],[place] [address] 11/24/2022 16:23:34 11/24/2022 17:14:50 [id number] [facility] [address],[place] [address] 11/24/2022 16:23:55 11/24/2022 17:23:39 Routine care 092324247 Z34.93 Nausea and vomiting 1693 2000 R11.2 [id number] Eren Kenny MD [facility] [address],[place] [address] 12/20/2022 16:33:34 12/20/2022 17:55:16 screening for malformation 531239486 Z36.3 [id number] [facility] [address],[place] [address] 12/20/2022 16:33:55 12/20/2022 18:01:17 Routine care 755519461 Z34.93 [id number] [facility] [address],[place] [address] 01/17/2023 17:06:20 01/17/2023 18:50:02 Routine care 531495792 Z34.93 [id number] Eren Kenny MD [facility] [address],[place] [address] 01/23/2023 17:00:20 01/24/2023 15:07:50 Spotting per vagina in 763573144 O26.852 Z3A.24 [id number] Jessica Cornelius MD [facility] [address],[place] [address] 02/14/2023 11:59:10 02/15/2023 16:09:55 Routine care 880399592 Z34.82 Past pregn gertrudis history of section 008308961 Z98.890 [id number] MD Arcadio Garcia [address],[place] [address] 02/14/2023 12:00:03 02/14/2023 12:36:09 Uterine size for dates discrepancy 127251219 O26.843 Z3A.27 [id number] [facility] [address] 1 02/28/2023 18:01:17 03/01/2023 17:45:14 Routine care 821397479 Z34.93 [id number] Eren Kenny MD [facility] [address],[place] [address] 03/14/2023 14:20:03 03/14/2023 15:14:06 Uterine size for dates discrepancy 116380456 O26.843 Z3A.31 [id number] [facility] [address],[place] [address] 03/14/2023 14:20:34 03/14/2023 15:50:28 Routine care 613631173 Z34.93 [id number] [facility] [address],[place] [address] 1 03/28/2023 16:27:12 03/28/2023 17:10:08 Routine care 902354342 Z34.93 [id number] Eren Kenny MD [facility] [address],[place] [address] 04/11/2023 15:58:46 04/11/2023 16:53:20 Uterine size for dates discrepancy 071650686 O26.843 Z3A.35 [id number] [facility] [address],[place] [address] 04/11/2023 15:59:07 04/11/2023 16:53:28 Routine care 324216376 Z34.93 [id number] [facility] [address],[place] [address] 04/18/2023 16:54:50 04/19/2023 08:56:41 Routine care 601256589 Z34.93 [id number] [facility] [address],[place] [address] 04/25/2023 18:02:24 04/28/2023 13:25:29 Routine care 579397615 Z34.93 [id number] Charlene Murray [facility] [address],[place] [address] 05/02/2023 16:43:41 05/02/2023 17:14:47 Routine care 484078729 Z34.93 [id number] Charlene Murray [facility] [address],[place] [address] 05/09/2023 11:48:57 05/09/2023 12:53:39 Routine care 037839439 Z34.93 Urinary symptoms 3558129 08 R39.9 [id number] Eren Kenny MD [facility] [address],[place] [address] 05/16/2023 16:25:41 05/16/2023 16:28:01 [id number] Eren Kenny MD [facility] [address],[place] [address] 05/18/2023 12:04:34 05/18/2023 12:43:50 Urinary symptoms 955671690 R39.9 Postoperative pain 00558 9007 G89.18 This patient is a 32-year-ol [...] have pain. We will continue pain management [id number] Charlene Murray [facility] [address],[place] [address] 06/08/2023 11:10:04 06/08/2023 13:40:06 care 258760839 Z39.2 f/u wwe september 2023 [id number] Charlene Murray [facility] [address],[place] [address] 04/02/2024 16:39:44 04/02/2024 17:45:48 Amenorrhea 01264817 N91.2 pap up to dateprecau tions and educationf /u 12 week new ob and first looknipt and labs at 10 weeksrevie wed US Venereal d isease screening 859881819 Z11.3 Nausea and vomiting 1693 2000 R11.2 Gynecologi c examination 89688811 Z01.419 [id number] Eren Kenny MD [facility] [address],[place] [address] 04/02/2024 16:39:31 04/02/2024 17:05:07 [id number] Eren Kenny MD [facility] [address],[place] [address] 04/23/2024 11:31:00 04/23/2024 11:54:46 screening 859738333 Z36.82 Z3A.12 [id number] Charlene Murray [facility] [address],[place] [address] 04/23/2024 11:32:41 04/23/2024 12:46:43 Gestation period, 12 weeks 29841691 Z3A.12 Routine an tenatal care 786351557 Z34.93 [id number] Eren Kenny MD [facility] [address],[place] [address] 06/18/2024 16:49:22 06/19/2024 04:31:03 screening for malformation 084100660 Z36.3 Z3A.20 [id number] Charlene Murray [facility] [address],[place] [address] 06/18/2024 16:49:54 06/18/2024 18:28:48 Gestation period, 20 weeks 85832501 Z3A.20 continue vitamin [id number] Eren Kenny MD [facility] [address],[place] [address] 07/16/2024 16:59:02 07/16/2024 17:59:04 Placental condition affecting management of mother 679588523 O43.92 Z3A.24 [id number] [facility] [address],[place] [address] 07/16/2024 16:59:19 07/16/2024 18:01:51 Gestation period, 24 weeks 637433740 Z3A.24 continue vitamin [id number] Eren Kenny MD [facility] [address],[place] [address] 08/13/2024 15:30:28 08/13/2024 16:14:31 Bilobate placenta 7906211212 O43.199 Z3A.28 [id number] [facility] [address],[place] [address] 08/13/2024 15:30:51 08/13/2024 16:54:44 Gestation period, 28 weeks 78387997 Z3A.28 continue vitamin [id number] [facility] [address],[place] [address] 08/27/2024 11:04:10 08/27/2024 11:41:10 Gestation period, 30 weeks 98205719 Z3A.30 continue vitamin [id number] Eren Kenny MD [facility] [address],[place] [address] 09/10/2024 11:52:30 09/10/2024 13:20:04 Bilobate placenta 8128497849 O43.193 Z3A.28 394662 [facility] [address],[place] [address] 09/10/2024 11:52:43 09/10/2024 13:27:37 Gestation period, 32 weeks 9590560 Z3A.32 [id number] Eren Kenny MD [facility] [address],[place] [address] 09/23/2024 10:01:05 09/23/2024 10:32:51 Anomaly of placenta 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 O43.103 Z3A.34 [id number] Charlene Murray [facility] [address],[place] [address] 09/23/2024 10:01:22 09/23/2024 12:02:50 Gestation period, 34 weeks 81689194 Z3A.34 [id number] [facility] [address],[place] [address] 10/17/2024 11:22:27 10/17/2024 12:36:16 Gestation period, 37 weeks 85353782 Z3A.37 [id number] Eren Kenny MD [facility] [address],[place] [address] 10/24/2024 12:01:20 10/24/2024 12:46:51 Bilobate placenta 6878972438 O43.199 O43.193 Z3A.38 [id number] [facility] [address],[place] [address] 10/24/2024 12:02:11 10/24/2024 14:20:31 Gestation period, 38 weeks 41438452 Z3A.38 cont pnv [id number] Eren Kenny MD [facility] [address],[place] [address] 10/31/2024 11:53:49 10/31/2024 13:00:42 care status 253232471 Z34.83 Health Concerns Section Related Observation LastModified by Organization Detai ls LastModified Time None Recorded Concern Status LastModified by Organization Details LastModified Time None Recorded Advance Directives Directive None Recorded Payers Encounter Date Sequence Insurance Name Policy Number Policy Hurtado Covered Member ID Hurtado Member ID Guarantor Name 09/23/2024 1 [facility] ON OR AFTER 12/02/20 (MEDICAID REPLACEMENT - HMO) Krystyna Wilde [id number] Krystyna Wilde 10/17/2024 1 [facility] ON OR AFTER 12/02/20 (MEDICAID REPLACEMENT - HMO) Krystyna Wilde [id number] Krystyna Wilde 10/24/2024 1 [facility] ON OR AFTER 12/02/20 (MEDICAID REPLACEMENT - HMO) Krystyna Wilde [id number] Krystyna Blairggoner 10/24/2024 1 [facility] ON OR AFTER 12/02/20 (MEDICAID REPLACEMENT - HMO) Krystyna Wilde [id number] Krystyna Hodgesoner 10/31/2024 1 [facility] ON OR AFTER 12/02/20 (MEDICAID REPLACEMENT - HMO) Krystyna Wilde [id number] Krystyna Wilde OBGyn Episode Ob Episode Information Episode Created Date Number of Fetuses Patient Bloodtype Patient rh Status Prepregnancy Weight lbs Domestic Partner Domestic Partner Phone Father Name Supervisor Dials Status 10/14/19 20 1 O Positive 118 [...] Weight in lbs Pre/Post Dialysis Refused Weight 125.803441870148 BP Diastolic BP Location Tested BP Systolic [...] Weight in lbs Pre/Post Dialysis Refused Weight 127.435198436626 BP Diastolic BP Location Tested BP Systolic BP Type 66 101 sitting Fetus Heart Rate Present A 150 Fetus Movement Comments Pt doing well. No complaints . I did discuss short nasal bone on u/s. I would like to schedule mfm consult. Pt case sent to [facility] to schedule. Flowsheet Date 11/06/2019 Lepe Score Blood Edema Fundus Height Fundus Units Glucose Ketones Leukocytes Nitrite Labor Signs Protein Cervic Dilation Cervic Effacement Cervic Station trace Type Weight in lbs Pre/Post Dialysis Refused Weight 129.153690788326 BP Diastolic BP Location Tested BP Systolic [...] Weight in lbs Pre/Post Dialysis Refused Weight 134.452535780375 BP Diastolic BP Location Tested BP Systolic BP Type 72 L arm 111 sitting Fetus Heart Rate Present A 140 Fetus Movement A Yes Comments Pt doing well. No complaints . Having a boy Rayray. Flowsheet Date 12/25/2019 Lepe Score Blood Edema Fundus Height Fundus Units Glucose Ketones Leukocytes Nitrite Labor Signs Protein Cervic Dilation Cervic Effacement Cervic Station 28 Type Weight in lbs Pre/Post Dialysis Refused Weight 138.974485269495 BP Diastolic BP Location Tested BP Systolic BP Type 77 118 Fetus Heart Rate Present A 145 Fetus Movement A Yes Comments Flowsheet Date 01/09/2020 Lepe Score Blood Edema Fundus Height Fundus Units Glucose Ketones Leukocytes Nitrite Labor Signs Protein Cervic Dilation Cervic Effacement Cervic Station 31 Type Weight in lbs Pre/Post Dialysis Refused Weight 140.149763027080 BP Diastolic BP Location Tested BP Systolic [...] Weight in lbs Pre/Post Dialysis Refused Weight 148.213611877657 BP Diastolic BP Location Tested BP Systolic [...] Weight in lbs Pre/Post Dialysis Refused Weight 148.589649473098 BP Diastolic BP Location Tested BP Systolic BP Type 77 R arm 115 sitting Fetus Heart Rate Present A 145 Fetus Movement A Yes Comments Flowsheet Date 02/27/2020 Lepe Score Blood Edema Fundus Height Fundus Units Glucose Ketones Leukocytes Nitrite Labor Signs Protein Cervic Dilation Cervic Effacement Cervic Station 38 trace Type Weight in lbs Pre/Post Dialysis Refused Weight 149.627861986524 BP Diastolic BP Location Tested BP Systolic BP Type 81 R arm 115 sitting Fetus Heart Rate Present A 145 Fetus Movement A Yes Comments Flowsheet Date 03/05/2020 Lepe Score Blood Edema Fundus Height Fundus Units Glucose Ketones Leukocytes Nitrite Labor Signs Protein Cervic Dilation Cervic Effacement Cervic Station 39 trace 1cm 50% -3 Type Weight in lbs Pre/Post Dialysis Refused Weight 150.038740367199 BP Diastolic BP Location Tested BP Systolic [...] Weight in lbs Pre/Post Dialysis Refused Weight 150.263987676291 BP Diastolic BP Location Tested BP Systolic [...] Weight in lbs Pre/Post Dialysis Refused Weight 152.404413712761 BP Diastolic BP Location Tested BP Systolic [...] Weight in lbs Pre/Post Dialysis Refused Weight 134.908564660684 BP Diastolic BP Location Tested BP Systolic BP Type 75 R arm 111 sitting Fetus Heart Rate Present Fetus Movement Comments Flowsheet Date 04/16/2020 Lepe Score Blood Edema Fundus Height Fundus Units Glucose Ketones Leukocytes Nitrite Labor Signs Protein Cervic Dilation Cervic Effacement Cervic Station Type Weight in lbs Pre/Post Dialysis Refused Weight 133.751169602306 BP Diastolic BP Location Tested BP Systolic [...] Estim ated Date of Delivery false Thalassemia (Welsh, Guatemalan, Mediterranean, Or Background): MCV < 80 false Neural Tube Defect (Meningomyelocele, Spina Bifi da, Or Anencephaly) false Congenital Heart Defect false Down Syndrome false Armando-Sachs (eg, Latter-Day, Cajun, Malagasy-Anguillan) f alse Gertrudis Disease false Sickle Cell Disease Or Trait () false Hemophilia Or Other Blood Disorders false Muscular Dystrophy false Cystic Fibrosis false Leonel's Chorea false Intellectual Disability/Autism false If Yes, [...] Domestic Partner Domestic Partner Phone Father Name Supervisor Dials Status 11/06/19 20 1 CLOSED Fetus Data [...] Domestic Partner Domestic Partner Phone Father Name Supervisor Dials Status 03/26/20 20 1 DELETED Sergio Calculation [...] Domestic Partner Domestic Partner Phone Father Name Supervisor Dials Status 10/24/19 23 1 O Positive 124 [...] Weight in lbs Pre/Post Dialysis Refused Weight 120.953778724081 BP Diastolic BP Location Tested BP Systolic [...] Weight in lbs Pre/Post Dialysis Refused Weight 122.287151434648 BP Diastolic BP Location Tested BP Systolic [...] Weight in lbs Pre/Post Dialysis Refused Weight 126.56585829306 BP Diastolic BP Location Tested BP Systolic [...] Weight in lbs Pre/Post Dialysis Refused Weight 132.999636834014 BP Diastolic BP Location Tested BP Systolic BP Type 71 101 Fetus Heart Rate Present Fetus Movement A Yes Comments patient is having cramping, BH contractions, and nausea. reviewed PTL precautions, education done, next visit growth and GCT, [facility] Flowsheet Date 01/23/2023 [...] Weight in lbs Pre/Post Dialysis Refused Weight 139.528088183866 BP Diastolic BP Location Tested BP Systolic [...] Weight in lbs Pre/Post Dialysis Refused Weight 141.850927263418 BP Diastolic BP Location Tested BP Systolic [...] Weight in lbs Pre/Post Dialysis Refused Weight 143.773624230661 BP Diastolic BP Location Tested BP Systolic [...] Weight in lbs Pre/Post Dialysis Refused Weight 148.946599736600 BP Diastolic BP Location Tested BP Systolic [...] Weight in lbs Pre/Post Dialysis Refused Weight 149.834199919552 BP Diastolic BP Location Tested BP Systolic [...] Weight in lbs Pre/Post Dialysis Refused Weight 149.061684875590 BP Diastolic BP Location Tested BP Systolic [...] Weight in lbs Pre/Post Dialysis Refused Weight 152.006902544119 BP Diastolic BP Location Tested BP Systolic [...] Weight in lbs Pre/Post Dialysis Refused Weight 153.171566912966 BP Diastolic BP Location Tested BP Systolic [...] Weight in lbs Pre/Post Dialysis Refused Weight 154.965239419701 BP Diastolic BP Location Tested BP Systolic [...] Estim ated Date of Delivery false Thalassemia (Welsh, Guatemalan, Mediterranean, Or Background): MCV < 80 false Neural Tube Defect (Meningomyelocele, Spina Bifi da, Or Anencephaly) false Congenital Heart Defect false Down Syndrome false Armando-Sachs (eg, Latter-Day, Cajun, Malagasy-Anguillan) f alse Gertrudis Disease false Sickle Cell Disease Or Trait () false Hemophilia Or Other Blood Disorders false Muscular Dystrophy false Cystic Fibrosis false Leonel's Chorea false Intellectual Disability/Autism false If Yes, [...] Domestic Partner Domestic Partner Phone Father Name Supervisor Dials Status 04/23/20 24 1 O Positive 129 Ca;eb Richard OPEN Fetus Data First Name Last Name Admitted to NICU Weight (g) Sex Living Outcome Pediatric Complications Fetus ID Race Codes Race Delivery Type [id number] Problems Problem Notes short interval -renetta ns rpt c/s considering pp IUD Problem Name Start Date End Date Resolution Snomed Code Not e Past history of gestational hypertension [id number] start bASA Disorder of placenta 993033552 Bilobed placenta serial growth Polyhydramnios 82047496 mild resolved Sergio Calculation Initial Sergio Date Initial Exam [...] Ultra Sound Latest Days Gestation 0 0 Pre- Flowsheet Flowsheet Date 04/23/2024 Lepe Score Blood Edema Fundus Height Fundus Units Glucose Ketones Leukocytes Nitrite Labor Signs Protein Cervic Dilation Cervic Effacement Cervic Station neg none none trace Type Weight in lbs Pre/Post Dialysis Refused Weight 128.868754484454 BP Diastolic BP Location Tested BP Systolic [...] Type Weight in lbs Pre/Post Dialysis Refused 134.696804252128 BP Diastolic BP Location Tested BP Systolic [...] Type Weight in lbs Pre/Post Dialysis Refused 141.867898115420 BP Diastolic BP Location Tested BP Systolic [...] Type Weight in lbs Pre/Post Dialysis Refused 148.719145924266 BP Diastolic BP Location Tested BP Systolic [...] Weight in lbs Pre/Post Dialysis Refused Weight 148.911043491237 BP Diastolic BP Location Tested BP Systolic [...] Type Weight in lbs Pre/Post Dialysis Refused 151.344477536379 BP Diastolic BP Location Tested BP Systolic BP Type 58 102 Fetus Heart Rate Present Fetus Movement A Yes Comments Patient states that is havin g some pain and nausea. reviewed US, mild ply will rpt in 2 weeks, efw 59%, call for preadmit, education and precautions f/u 2 weeks Flowsheet Date 09/23/2024 Lepe Score Blood Edema Fundus Height Fundus Units Glucose Ketones Leukocytes Nitrite Labor Signs Protein Cervic Dilation Cervic Effacement Cervic Station Type Weight in lbs Pre/Post Dialysis Refused BP Diastolic BP Location Tested BP Systolic BP Type Fetus Heart Rate Present Fetus Movement Comments Flowsheet Date 09/23/2024 Lepe Score Blood Edema Fundus Height Fundus Units Glucose Ketones Leukocytes Nitrite Labor Signs Protein Cervic Dilation Cervic Effacement Cervic Station neg none Type Weight in lbs Pre/Post Dialysis Refused Weight 153.087123604708 BP Diastolic BP Location Tested BP Systolic BP Type 70 112 Fetus Heart Rate Present Fetus Movement A Yes Comments Patient is having some leg p ain, cramping and nausea. ployhydramnios resolved polyhydramnios +FM, reviewed US f/u 2 weeks plan GBS Flowsheet Date 10/17/2024 Lepe Score Blood Edema Fundus Height Fundus Units Glucose Ketones Leukocytes Nitrite Labor Signs Protein Cervic Dilation Cervic Effacement Cervic Station neg trace Type Weight in lbs Pre/Post Dialysis Refused Weight 157.022984679491 BP Diastolic BP Location Tested BP Systolic BP Type 71 104 Fetus Heart Rate Present Fetus Movement A Yes Comments Patient is having spells of dizziness. Patient is having cramping and swelling and nausea. +FM increase fluids, increase protein, precautions and education gbs collected f/u one week Flowsheet Date 10/24/2024 Lepe Score Blood Edema Fundus Height Fundus Units Glucose Ketones Leukocytes Nitrite Labor Signs Protein Cervic Dilation Cervic Effacement Cervic Station Type Weight in lbs Pre/Post Dialysis Refused BP Diastolic BP Location Tested BP Systolic BP Type Fetus Heart Rate Present Fetus Movement Comments Flowsheet Date 10/24/2024 Lepe Score Blood Edema Fundus Height Fundus Units Glucose Ketones Leukocytes Nitrite Labor Signs Protein Cervic Dilation Cervic Effacement Cervic Station neg none Type Weight in lbs Pre/Post Dialysis Refused 158.443595664361 BP Diastolic BP Location Tested BP Systolic BP Type 73 110 Fetus Heart Rate Present Fetus Movement A Yes Comments Patient is having some cramp ing. reviewed US, preop dr kenny next week +FM, precautions and education reviewed Flowsheet Date 10/31/2024 Lepe Score Blood Edema Fundus Height Fundus Units Glucose Ketones Leukocytes Nitrite Labor Signs Protein Cervic Dilation Cervic Effacement Cervic Station Type Weight in lbs Pre/Post Dialysis Refused 159.726432600215 BP Diastolic BP Location Tested BP Systolic BP Type 72 L arm 109 sitting Fetus Heart Rate Present A 153 Present Fetus Movement A Yes Comments no complaints, no problems, routine care, no contractions, no vaginal bleeding, no loss of fluid, no cramping Menstrual History Last Menstrual Date Menses Monthly [...]
--- OUTSIDE RECORDS SUMMARY | 2024-11-04 13:36 | XMS_ITS | Referral Summary ---
Author Organization 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 Gender Identity Not on file Sexual [...] 5:47 AM CDT Height 160 cm (5' 3) 12/03/2023 5:47 AM CDT Body Mass Index 23.91 12/03/2023 5:47 AM CDT Plan of Treatment Not on file Procedures Procedure Name Priority Date/Time Associated Diagnosis Comments THINPREP TIS PAP REFLEX HPV MRNA E6/E7, CHLAMYDIA/N.GONORRH OEAE Routine 07/31/2017 1:36 PM SAND WORKER Routine cervical smear Screening examination for venereal disease from Last 3 Months or Most Recently Relevant to Health Maintenance Results * THINPREP TIS PAP REFLEX HPV mRNA E6/E7, CHLAMYDIA/N.GONORRHOEAE (07/31/2017 1:36 PM SAND WORKER) Report status CANCELED [facility] - SL [...] has been evaluated with computer assisted technology. Reconciler [facility] - Comment: KMY, CT(ASCP) CT screening location: [place] [address] [address] [place] [address] Review box loader [facility] - Comment:Result canceled by t he ancillary Pathologist [facility] - Comment:Result canceled by t christa ancillary C. trachomatis RNA NOT DETECTED NOT DETECTED [facility] N. gonorrhoeae RNA NOT DETECTED NOT DETECTED [facility] Comment [facility] Comment: This test was performed using the APTIMA COMBO2 Assay ([employer] The analytical performance characteristics of this assay, when used to test SurePath specimens have been determined by [employer]. Fluid 07/31/2017 1:36 PM SAND WORKER 08/01/2017 5:41 AM SAND WORKER Narrative Resulting Agency Comment Performing Organization Information: Site ID: Name: [facility] Address: [facility] [place] [address] Director: Popeye Bernard MD Milady Jason MD LAB PATHOLOGY ORDERAB LES Final Result [place], [place] from Last 3 Months or Most Recently Relevant to Health Maintenance Insurance [facility] PLAN [facility] Care Teams Finishing Manager Relationship Specialty Start Date End Date Elías Echevarria MD [address] [place] [address] [address] PCP - General Family Medicine 10/02/22
--- OUTSIDE RECORDS SUMMARY | 2024-11-04 13:36 | XMS_ITS | Clinical Summary ---
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
--- OUTSIDE RECORDS SUMMARY | 2024-11-04 13:36 | XMS_ITS | Data Portability ---
Author Organization [facility] Address [address] [place] [address] Care Team Providers Care Green Belt Name Role Phone MINI GIBSON Licensing And Registration Director Assessment No assessment recorded. Plan of Treatment Reminders Order Date Submit Date Provider Last Modified By Organization Details Last Modified Time Details Appointments None recorded. Lab test, urine 2019 020 [email or web address] 23 In-Office Order, Internal Use Only DO Not Attach Compendium DO Not Attach Compendium, Do Not Delete/merge, [id number] 0 12:16:05 obstetric screen, serum or blood 2019 020 [facility] [address] [facility], [place], [address], 0 12:36:17 urinalysis complete, reflex culture 2019 020 [facility], [address] [facility], [facility], [place], [address], 0 12:36:18 drug screen, urine 2019 020 [facility] [address] [facility] [address], [place], [address], 0 12:36:17 hemoglobin S (hbs), presence, blood 2019 020 [facility], [address], [address], [place], [address], 0 12:36:21 cf (cystic fibrosis) profile 02/25/ 2020 02/25/2 020 [facility] [address] [facility], [address], [place], [address], 0 12:36:19 varicella zoster virus IgG Ab, QN, IA, serum 2019 [facility] [address] [facility], [address], [place], [address], 0 12:36:20 HIV 1+2 AB + HIV 1 p24 Ag, qualitative immunoassay , serum 2019 [facility] [address] [facility], [address], [place], [address], 0 12:36:19 Referral None recorded. Procedures None [...] Negati ve negati ve Not Available [facility] ([facility]) [address] [place], [address], 08/05/2019 12:36:16 07/29/19 20 07/30/2019 obste tric scree n, serum or blood RPR Non Reacti ve non reacti ve Not Available [facility] ([facility]) [address] [place], [address], 08/05/2019 12:36:16 07/29/19 20 07/30/2019 obste tric scree n, serum or blood rubella antibodies, IgG <0.90 index immune >0.99 below low normal Non-i mmune <0.90 Equiv ocal 0.90 - 0.99 Immun e >0.99 Not Available [facility] ([facility]) [address] [facility], [place], [address], 08/05/2019 12:36:16 07/29/19 20 07/30/2019 obste tric scree n, serum or blood ABO grouping O Not Available [facility] ([facility]) [address] [place], [address], 08/05/2019 12:36:16 07/29/19 20 07/30/2019 obste tric scree n, serum or blood Rh factor Positi ve Pleas e note: Prior recor ds for this patie nt's ABO / Rh type are not avail able for addit ional verif icati on. Not Available [facility] ([facility]) [address] [facility], [place], [address], 08/05/2019 12:36:16 07/29/19 20 07/30/2019 obste tric scree n, serum or blood antibody screen Negati ve negati ve Not Available [facility] ([facility]) [address] [facility], [place], [address], 08/05/2019 12:36:16 07/29/19 20 07/30/2019 obste tric scree n, serum or blood WBC 10.1 x10e3 /uL 3.4-10 .8 Not Available [facility] ([facility]) [address] [place], [address], 08/05/2019 12:36:16 07/29/19 20 07/30/2019 obste tric scree n, serum or blood RBC 4.29 x10e6 /uL 3.77-5 .28 Not Available [facility] ([facility]) [address] [place], [address], 08/05/2019 12:36:16 07/29/19 20 07/30/2019 obste tric scree n, serum or blood hemoglobin 12.9 g/dL 11.1-1 5.9 Not Available [facility] ([facility]) [address] [facility], [place], [address], 08/05/2019 12:36:16 07/29/19 20 07/30/2019 obste tric scree n, serum or blood hematocrit 38.6 % 34.0-4 6.6 Not Available [facility] ([facility]) [address] [facility], [place], [address], 08/05/2019 12:36:16 07/29/19 20 07/30/2019 obste tric scree n, serum or blood MCV 90 fL 79-97 Not Available [facility] ([facility]) [address] [facility], [place], [address], 08/05/2019 12:36:16 07/29/19 20 07/30/2019 obste tric scree n, serum or blood MCH 30.1 pg 26.6-3 3.0 Not Available [facility] ([facility]) [address] [facility], [place], [address], 08/05/2019 12:36:16 07/29/19 20 07/30/2019 obste tric scree n, serum or blood MCHC 33.4 g/dL 31.5-3 5.7 Not Available [facility] ([facility]) [address] [facility], [place], [address], 08/05/2019 12:36:16 07/29/19 20 07/30/2019 obste tric scree n, serum or blood RDW 12.6 % 11.7-1 5.4 Not Available [facility] ([facility]) [address] [place], [address], 08/05/2019 12:36:16 07/29/19 20 07/30/2019 obste tric scree n, serum or blood platelets 255 x10e3 /uL 150-45 0 Not Available [facility] ([facility]) [address] [place], [address], 08/05/2019 12:36:16 07/29/19 20 07/30/2019 obste tric scree n, serum or blood neutrophils 75 % not estab. Not Available [facility] ([facility]) [address] [facility], [place], [address], 08/05/2019 12:36:16 07/29/19 20 07/30/2019 obste tric scree n, serum or blood lymphs 18 % not estab. Not Available [facility] ([facility]) [address] [facility], [place], [address], 08/05/2019 12:36:16 07/29/19 20 07/30/2019 obste tric scree n, serum or blood monocytes 6 % not estab. Not Available [facility] ([facility]) [address] [facility], [place], [address], 08/05/2019 12:36:16 07/29/19 20 07/30/2019 obste tric scree n, serum or blood eos 0 % not estab. Not Available [facility] ([facility]) [address] [facility], [place], [address], 08/05/2019 12:36:16 07/29/19 20 07/30/2019 obste tric scree n, serum or blood basos 0 % not estab. Not Available [facility] ([facility]) [address] [facility], [place], [address], 08/05/2019 12:36:16 07/29/19 20 07/30/2019 obste tric scree n, serum or blood immature cells FLUSH TESTER Not Available [facility] ([facility]) [address] [place], [address], 08/05/2019 12:36:16 07/29/19 20 07/30/2019 obste tric scree n, serum or blood neutrophils (absolute) 7.5 x10e3 /uL 1.4-7. 0 above high normal Not Available [facility] ([facility]) [address] [place], [address], 08/05/2019 12:36:16 07/29/19 20 07/30/2019 obste tric scree n, serum or blood lymphs (absolute) 1.8 x10e3 /uL 0.7-3. 1 Not Available [facility] ([facility]) [address] [place], [address], 08/05/2019 12:36:16 07/29/19 20 07/30/2019 obste tric scree n, serum or blood monocytes(ab solute) 0.6 x10e3 /uL 0.1-0. 9 Not Available [facility] ([facility]) [address] [place], [address], 08/05/2019 12:36:16 07/29/19 20 07/30/2019 obste tric scree n, serum or blood eos (absolute) 0.0 x10e3 /uL 0.0-0. 4 Not Available [facility] ([facility]) [address] [place], [address], 08/05/2019 12:36:16 07/29/19 20 07/30/2019 obste tric scree n, serum or blood baso (absolute) 0.0 x10e3 /uL 0.0-0. 2 Not Available [facility] ([facility]) [address] [place], [address], 08/05/2019 12:36:16 07/29/19 20 07/30/2019 obste tric scree n, serum or blood immature granulocytes 1 % not estab. Not Available [facility] ([facility]) [address] [place], [address], 08/05/2019 12:36:16 07/29/19 20 07/30/2019 obste tric scree n, serum or blood immature grans (abs) 0.1 x10e3 /uL 0.0-0. 1 Not Available [facility] ([facility]) [address] [place], [address], 08/05/2019 12:36:16 07/29/19 20 07/30/2019 obste tric scree n, serum or blood NRBC FLUSH TESTER Not Available [facility] ([facility]) [address] [facility], [place], [address], 08/05/2019 12:36:16 07/29/19 20 07/30/2019 obste tric scree n, serum or blood hematology comments: FLUSH TESTER Not Available [facility] ([facility]) [address] [facility], [place], [address], 08/05/2019 12:36:16 07/29/19 20 07/29/2019 drug scree [...] on is avail able at mel shi [email or web address], or call toll free [phone]. Not Available [facility] ([facility]) [address] [facility], [place], [address], 08/05/2019 12:36:17 07/29/19 20 07/30/2019 drug scree n, urine amphetamines , urine Negati ve NG/mL cutoff =1000 Amphe tamin e test inclu arlen Amphe tamin e and Metha mphet amine . Not Available [facility] ([facility]) [address] [facility], [place], [address], 08/05/2019 12:36:17 07/29/19 20 07/30/2019 drug scree n, urine barbiturates Negati ve NG/mL cutoff =200 Not Available [facility] ([facility]) [address] [place], [address], 08/05/2019 12:36:17 07/29/19 20 07/30/2019 drug scree n, urine benzodiazepi aysha Negati ve NG/mL cutoff =300 Not Available [facility] ([facility]) [address] [place], [address], 08/05/2019 12:36:17 07/29/19 20 07/30/2019 drug scree n, urine cannabinoid Negati ve NG/mL cutoff =50 Not Available [facility] ([facility]) [address] [place], [address], 08/05/2019 12:36:17 07/29/19 20 07/30/2019 drug scree n, urine cocaine (metab.) Negati ve NG/mL cutoff =300 Not Available [facility] ([facility]) [address] [place], [address], 08/05/2019 12:36:17 07/29/19 20 07/30/2019 drug scree n, urine opiates Negati ve NG/mL cutoff =300 Opiat e test inclu arlen Codei ne, Morph ine, [place] morph one, [place] codon e. Not Available [facility] ([facility]) [address] [place], [address], 08/05/2019 12:36:17 07/29/19 20 07/30/2019 drug scree n, urine phencyclidin e Negati ve NG/mL cutoff =25 Not Available [facility] ([facility]) [address] [place], [address], 08/05/2019 12:36:17 07/29/19 20 07/30/2019 drug scree n, urine methadone Negati ve NG/mL cutoff =300 Not Available [facility] ([facility]) [address] [place], [address], 08/05/2019 12:36:17 07/29/19 20 07/30/2019 drug scree n, urine propoxyphene , urine Negati ve NG/mL cutoff =300 Not Available [facility] ([facility]) [address] [place], [address], 08/05/2019 12:36:17 07/29/19 20 07/30/2019 urina lysis compl ete, refle x cultu re specific gravity 1.006 1.005- 1.030 Not Available [facility] ([facility]) [address] [place], [address], 08/05/2019 12:36:18 07/29/19 20 07/30/2019 urina lysis compl ete, refle x cultu re pH 6.5 5.0-7. 5 Not Available [facility] ([facility]) [address] [place], [address], 08/05/2019 12:36:18 07/29/19 20 07/30/2019 urina lysis compl ete, refle x cultu re urine-color Yellow yellow Not Available [facility] ([facility]) [address] [place], [address], 08/05/2019 12:36:18 07/29/19 20 07/30/2019 urina lysis compl ete, refle x cultu re appearance Clear clear Not Available [facility] ([facility]) [address] [place], [address], 08/05/2019 12:36:18 07/29/19 20 07/30/2019 urina lysis compl ete, refle x cultu re WBC esterase Negati ve negati ve Not Available [facility] ([facility]) [address] [place], [address], 08/05/2019 12:36:18 07/29/19 20 07/30/2019 urina lysis compl ete, refle x cultu re protein Negati ve negati ve/tra ce Not Available [facility] ([facility]) [address] [place], [address], 08/05/2019 12:36:18 07/29/19 20 07/30/2019 urina lysis compl ete, refle x cultu re glucose Negati ve negati ve Not Available [facility] ([facility]) [address] [place], [address], 08/05/2019 12:36:18 07/29/19 20 07/30/2019 urina lysis compl ete, refle x cultu re ketones Negati ve negati ve Not Available [facility] ([facility]) [address] [place], [address], 08/05/2019 12:36:18 07/29/19 20 07/30/2019 urina lysis compl ete, refle x cultu re occult blood Negati ve negati ve Not Available [facility] ([facility]) [address] [place], [address], 08/05/2019 12:36:18 07/29/19 20 07/30/2019 urina lysis compl ete, refle x cultu re bilirubin Negati ve negati ve Not Available [facility] ([facility]) [address] [place], [address], 08/05/2019 12:36:18 07/29/19 20 07/30/2019 urina lysis compl ete, refle x cultu re urobilinogen ,semi-qn 0.2 mg/dL 0.2-1. 0 Not Available [facility] ([facility]) [address] [place], [address], 08/05/2019 12:36:18 07/29/19 20 07/30/2019 urina lysis compl ete, refle x cultu re nitrite, urine Negati ve negati ve Not Available [facility] ([facility]) [address] [place], [address], 08/05/2019 12:36:18 07/29/19 20 07/30/2019 urina lysis compl ete, refle x cultu re microscopic examination Commen t Micro scopi c follo ws if indic ated. Not Available [facility] ([facility]) [address] [place], [address], 08/05/2019 12:36:18 07/29/19 20 07/30/2019 urina lysis compl ete, refle x cultu re microscopic examination See below: Micro scopi c was indic ated and was perfo rmed. Not Available [facility] ([facility]) [address] [facility], [place], [address], 08/05/2019 12:36:18 07/29/19 20 07/30/2019 urina lysis compl ete, refle x cultu re WBC 0-5 /hpf 0 - 5 Not Available [facility] ([facility]) [address] [facility], [place], [address], 08/05/2019 12:36:18 07/29/19 20 07/30/2019 urina lysis compl ete, refle x cultu re RBC 0-2 /hpf 0 - 2 Not Available [facility] ([facility]) [address] [place], [address], 08/05/2019 12:36:18 07/29/19 20 07/30/2019 urina lysis compl ete, refle x cultu re epithelial cells (non renal) 0-10 /hpf 0 - 10 Not Available [facility] ([facility]) [address] [place], [address], 08/05/2019 12:36:18 07/29/19 20 07/30/2019 urina lysis compl ete, refle x cultu re epithelial cells (renal) FLUSH TESTER Not Available [facility] ([facility]) [address] [place], [address], 08/05/2019 12:36:18 07/29/19 20 07/30/2019 urina lysis compl ete, refle x cultu re casts FLUSH TESTER Not Available [facility] ([facility]) [address] [facility], [place], [address], 08/05/2019 12:36:18 07/29/19 20 07/30/2019 urina lysis compl ete, refle x cultu re cast type FLUSH TESTER Not Available [facility] ([facility]) [address] [facility], [place], [address], 08/05/2019 12:36:18 07/29/19 20 07/30/2019 urina lysis compl ete, refle x cultu re crystals FLUSH TESTER Not Available [facility] ([facility]) [address] [facility], [place], [address], 08/05/2019 12:36:18 07/29/19 20 07/30/2019 urina lysis compl ete, refle x cultu re crystal type FLUSH TESTER Not Available [facility] ([facility]) [address] [facility], [place], [address], 08/05/2019 12:36:18 07/29/19 20 07/30/2019 urina lysis compl ete, refle x cultu re mucus threads Presen t not estab. Not Available [facility] ([facility]) [address] [facility], [place], [address], 08/05/2019 12:36:18 07/29/19 20 07/30/2019 urina lysis compl ete, refle x cultu re bacteria Few none seen/f ew Not Available [facility] ([facility]) [address] [facility], [place], [address], 08/05/2019 12:36:18 07/29/19 20 07/30/2019 urina lysis compl ete, refle x cultu re yeast FLUSH TESTER Not Available [facility] ([facility]) [address] [facility], [place], [address], 08/05/2019 12:36:18 07/29/19 20 07/30/2019 urina lysis compl ete, refle x cultu re trichomonas FLUSH TESTER Not Available [facility] ([facility]) [address] [facility], [place], [address], 08/05/2019 12:36:18 07/29/19 20 07/30/2019 urina lysis compl ete, refle x cultu re comment FLUSH TESTER Not Available [facility] ([facility]) [address] [facility], [place], [address], 08/05/2019 12:36:18 07/29/19 20 07/30/2019 urina lysis compl ete, refle x cultu re urinalysis reflex Commen t This speci men will not refle x to a Urine Cultu re. Not Available [facility] ([facility]) [address] [facility], [place], [address], 08/05/2019 12:36:18 07/29/19 20 07/29/2019 cf (cyst ic fibro sis) profi le comment: Commen t The assay provi arlen infor matio n inten ded to be used for rosina er scree sherie in adult s of repro ducti ve age, as an aid in [facility] rn scree sherie, and as a confi rmato ry test for anoth er medic ally estab lishe d diagn osis in [facility] rns and child gianluca. The test is not indic ated for use in diagn ostic testi ng, pre-i mplan tatio n scree sherie, or for any stand -schuyler e diagn ostic purpo ses witho ut confi rmati on by anoth er medic ally estab lishe d diagn ostic produ ct or proce dure. Not Available [facility] ([facility]) [address] [facility], [place], [address], 08/05/2019 12:36:19 07/29/19 20 08/05/2019 cf (cyst [...] under stand ing of the [facility] jane ics of this condi tion. [...] Relea sed By: Arthur Fernandez, Ph.D. , [facility] Repor t Relea sed By: Arthur Fernandez, Ph.D. , [facility] Not Available [facility] ([facility]) [address] [facility], [place], [address], 08/05/2019 12:36:19 07/29/1908/05/2019 cf (cyst ic fibro sis) profi lina pdf . Not Available [facility] ([facility]) [address] [facility], [place], [address], 08/05/2019 12:36:19 07/29/19 20 07/30/2019 HIV 1+2 AB + HIV 1 p24 Ag, quali tativ e immun oassa y, serum HIV screen 4TH generation wrfx Non Reacti ve non reacti ve Not Available [facility] ([facility]) [address] [facility], [place], [address], 08/05/2019 12:36:19 07/29/19 20 07/30/2019 varic mian [...] stage of disea se. Not Available [facility] ([facility]) [address] [facility], [place], [address], 08/05/2019 12:36:20 07/29/19 20 07/31/2019 hemog lobin [...] ionat ion testi ng. Not Available [facility] ([facility]) [address] [facility], [place], [address], 08/05/2019 12:36:21 07/29/19 20 07/29/2019 pregn gertrudis test, urine HCG positi ve Not Available In-Office Order Internal Use Only DO Not Attach Compendium DO Not Attach Compendium, Do Not Delete/merge, [id number] 07/29/2019 11:26:38 08/20/19 20 08/19/2019 US, obste tric, 1st trime ster No observ ation record ed. [place] [id number] [facility] [address], [place], [address], 08/26/2019 10:05:50 09/18/19 25 09/17/2024 US, doppl er, venou s No observ ation record ed. [place] [id number] [facility] [address], [place], [address], 09/18/2024 08:49:32 Result Notes None recorded. Problems Name Problem SNOMED Code Status Onset Date Resolution Date Notes Provider Name and Address Organization Details Recorded Time [id number] Completed 020 10/08/2019 Yanet Boggs MA null, [place] - [facility] 0 11:04:30 Problem Notes None recorded. Procedures Surgical History Date Name Laterality Status Provider Name and Address Organization Details Recorded Time 06/04/2009 tonsilecto my/adenoid s completed Susan Dorman [place] - [facility] 07/29/2019 11:22:03 Imaging Results None recorded. Procedure Notes None recorded. Medical Equipment None Reported. Allergies No known drug allergies Medications Name Sig Start Date Stop Date Status Note LastModified by Organization Details LastModified Time active otc Not Available Not Avai lable Not Available Vitals Date Recorded Body mass index (BMI) Body height Systolic blood pressure Diastolic blood pressure Provider Name and Address Organization Details Last Updated DateTime 07/29/2019 21 kg/m2 160.02 cm 110 mm[Hg] 82 mm[Hg] Susan Dorman [facility] 07/29/2019 11:25:02 Date Recorded Body weight Provider Name an d Address Organization Details Last Updated DateTime 07/29/2019 37904.119014 g Mini Gibson [facility] 2019 11:53:58 Date Recorded Body height Provider Name an d Address Organization Details Last Updated DateTime 08/26/2019 160.02 cm Yanet Boggs [place] - COUNT INCLUDES [facility] 08/25 11:47:36 Social History Question Answer Notes LastModified by Organizat ion Details LastModified Time Tobacco Smoking Status Never Smoker Susan Dorman [facility] 07/29/2019 11:18:58 If You Are , What Was Your Level Of Alcohol Consumption Prior To ? Occasional [email or web address] Information not available 07/29/2019 Is Blood Transfusion Acceptable In An Emergency? Yes [email or web address] Information not available 07/29/2019 What Is Your Level Of Caffeine Consumption? None [email or web address] Information not available 07/29/2019 Live With Cats/exposure To Cat Litter No [email or web address] Information not available 07/29/2019 How Much Tobacco Do You Chew? None [email or web address] Information not available 07/29/2019 What Type Of Diet Are You Following? REGULAR [email or web address] Information not available 07/29/2019 Which Illicit Or Recreational Drugs Have You Used? Denies [email or web address] Information not available 07/29/2019 Education 2 Year College [email or web address] Informatio n not available 07/29/2019 Frequent Air Travel Yes Pt States She Does Not Fly Alot But Is Flying This Week [email or web address] Information not available 07/29/2019 Illicit Drugs Pre- Lenoravincenzotorrie [email or web address] Information not available 07/29/2019 Live Alone Or With Others? With Others [email or web address] Information not available 07/29/2019 Marital Status Single [email or web address] Informatio n not available 07/29/2019 How Many Children Do You Have? 0 [email or web address] Information not available 07/29/2019 Seat Belts Used Routinely Yes [email or web address] Information not available 07/29/2019 Are You Sexually Active? Yes [email or web address] Information not available 07/29/2019 Do You Have Smoke And Carbon Monoxide Detectors In Your Home? Yes [email or web address] Information not available 07/29/2019 Are You Passively Exposed To Smoke? No Information not available 07/29/2019 How Much Tobacco Do You Smoke? No [email or web address] Information not available 07/29/2019 Smoking Pre- No Information not available 07/29/2019 General Stress Level Medium [email or web address] Information not available 07/29/2019 Do You Use Sunscreen Routinely? Yes [email or web address] Information not available 07/29/2019 Sex: Unknown Functional Status Question Answer Note LastModified by [employer] ion Details LastModified Time Do you or have you ever used smokeless tobacco? Never used smokeless tobacco [email or web address] Information not available 07/29/2019 Are you currently employed? Yes [email or web address] Information not available 07/29/2019 What is your occupation? self employed [email or web address] Information not available 07/29/2019 Do you or have you ever used e-cigarettes or vape? Never used electronic cigarettes Information not available 07/29/2019 What is your exercise level? None [email or web address] Information not available 07/29/2019 Mental Status None recorded. Family History Relationship Description Onset Age of this Age Resolved Age Notes LastModified by Organization Details LastModified Time Father No current problems or disability Not available 07/06 11:18:51 Mother No current problems or disability [email or web address] Not available 07/06 11:18:51 Medical History Condition Response Other N High Blood Pressure N Breast Cancer N Depression N Blood Clots N Lung Disease N Breast Problem N Anesthesia Complications N Headaches/Migraines N Anxiety Disorder N Muscle, Joint, or Bone Problems N Polyps N Infertility N Acid Reflux (GERD) N Cancer N Endometriosis N High Cholesterol N Liver Disease N Thyroid Problems N Kidney or Bladder Problems N GI Problems N Acne Y Eating Disorder N Anemia N Diabetes N Ovarian Cancer N Blood Transfusions N Seizures/Epilepsy N Abuse/Domestic Violence N Asthma N Hepatitis N Heart Disease N Pre-Eclampsia N Osteoporosis [...] SNOMED-CT Code Diagnosis ICD10 Code Diagnosis Note [id number] MD Sridhar Aguirre (BEEF CATTLE GRAZIER) [address] [place] [address] 07/29/2019 10:39:27 07/30/2019 09:43:14 Missed period 15956069 N92.5 UPT positive, dwp. Routine an tenatal care 157699309 Z34.01 See ACOG form [id number] MD Sridhar Aguirre (BEEF CATTLE GRAZIER) [address] [facility] [place] [address] 4 08/26/2019 10:38:17 08/27/2019 10:28:55 Routine care [id number] Z34.81 See ACOG form Health Concerns Section Related Observation LastModified by Organization Detai ls LastModified Time None Recorded Concern Status LastModified by Organization Details LastModified Time None Recorded Advance Directives Directive None Recorded Payers Encounter Date Sequence Insurance Name Policy Number Policy Hurtado Covered Member ID Hurtado Member ID Guarantor Name 07/29/2019 1 [place] [employer] [facility] [employer] Krystyna Andry [id number] Krystynapromise Hodgesoner 08/26/2019 1 [place] [employer] Krystyna Andry [id number] Krystyna [place] 08/26/2019 1 [place] [id number] Krystyna Wilde [id number] Krystyna Wilde Notes Date Note Type Note Provider Name and Address Organization Details Recorded Time 07/29/2019 text/html Pt. presents for confirmation of and initiation of care. She is taking PNVs already. Mini Gibson [facility], [place] - SIF 07/29/2019 12:15:46 OBGyn Episode Ob Episode Information Episode Created Date Number of Fetuses Patient Bloodtype Patient rh Status Prepregnancy Weight lbs Domestic Partner Domestic Partner Phone Father Name Olive Picker Status 07/29/19 20 1 CLOSED Fetus Data First Name Last Name Admitted to NICU Weight (g) Sex Living Outcome Pediatric Complications Fetus ID Race Codes Race Delivery Type , Spontane ous [id number] Sergio Calculation Initial Sergio Date Initial Exam [...] Domestic Partner Domestic Partner Phone Father Name Olive Picker Status 07/29/19 20 1 O Positive Bryan Richard CLOSED Fetus Data First Name Last Name Admitted to NICU Weight (g) Sex Living Outcome Pediatric Complications Fetus ID Race Codes Race Delivery Type [id number] Sergio Calculation Initial Sergio Date Initial Exam Date Initial Exam Provider Initial Ultrasound Date Last Menstrual Period Date Ultra Sound Weeks Gestation 03/12/2020 07/29/2019 [id number] 08/19/2019 06/06/2019 10 Eighteen To Twenty Week Sergio Update Ultra Sound Date Fundal Height At Umbil Quickening Date Ultra Sound Latest Weeks Gestation Final Sergio Confirmed By Final Sergio Confirmed Date Final Sergio Date Ultra Sound Latest Days Gestation 0 [id number] 08/26/2019 03/12/20 20 0 Pre- Flowsheet Flowsheet Date 07/29/2019 Lepe Score Blood Edema Fundus Height Fundus Units Glucose Ketones Leukocytes Nitrite Labor Signs Protein Cervic Dilation Cervic Effacement Cervic Station Type Weight in lbs Pre/Post Dialysis Refused With clothes [id number] BP Diastolic BP Location Tested BP Systolic [...] At Estimated Date of Delivery false Thalassemia (Slovak, Thai, Mediterranean, Or Background): MCV < 80 true fob is Neural Tube Defect (Meningom yelocele, Spina Bifida, Or Anencephaly) false Congenital Heart Defect false Down Syndrome false Armando-Sachs (eg, Amish, Cajun, Serbian-[place]) f alse Gertrudis Disease false Sickle Cell Disease Or Trait () false Hemophilia Or Other Blood Disorders false Muscular Dystrophy false Cystic Fibrosis false Leonel's Chorea false Mental Retardation/Autism false Other Inherited [...]
--- OUTSIDE RECORDS SUMMARY | 2024-11-04 13:36 | XMS_ITS ---
Author Organization [employer] [facility] Address [address] [place] [address] Care Team Providers Care Tower Observer Name Role Phone Catherine Nolasco Primary Care Provider [phone] Jessica Nunez REASON FOR VISIT Staph infection Medications Medication SIG (Take, Route, Frequency, Duration) Notes Start Date End Date Status Sulfamethoxazole-Trimetho prim 800-160 MG 1 tablet Orally twice a day for 10 days 09/07/2023 09/17/2023 Active Encounters Encounter Location Date Provider Diagnosis 2 [facility] [address] [place] [address] 09/07/2023 Jessica Trevino Staph infection B95.8 Assessments [...] * Krystyna WILDEDOB:[birth year] (33 yo F)Acc No.[id number]:09/07/2023 Patient: Krystyna BAZZI Provider: Wilma Trevino :1990 A ge:32 Y S ex:Female Date:09/07/2023 [facility] [place] [address] Pcp:Catherine Nolasco Subjective: * Chief Complaints: * 1 . Staph infection . * HPI: T ransition of Care: TM call. [place] and consents to TM call. States she [...] improve) * Billing Information: * Visit Code: 67724 Office Visit, New Pt., Level 3. Modifiers: 25 * Procedure Codes: * Electronic signature of Jessica Trevino APN on 11/04/2024 at 01:35 PM CDT Sign off status: Pending * Provider: Wilma Trevino Date: 0 09/07/2023 Generated for Héctor Pepe/Gary on: 0 11/04/2024 01:35 PM CDT History and Physical Notes * HPI (History of Present Illness) Category Sub-Category Detail Notes Category Not es Transition of Care TM call. Patient lives in [place] and consents to TM call. States she has what appears to be a skin infection caused (probably) by Staph aureus. Examination Category Sub-Category Detail Notes Category Not es General Examination Patient is A&Ox3 while on the call. No video capabilities available to this provider.
--- OUTSIDE RECORDS SUMMARY | 2024-11-04 13:36 | XMS_ITS | Clinical Summary ---
Author Organization [facility] [address] Address [address] [place] [address] Phone Care Team Providers Care Rn First Assistant Name Role Phone Elías Echevarria MD Primary Care Provider [phone] Allergies No known active allergies Medications dicyclomine [...] on file Legal Sex Female 9:10 PM DATACAP DEVELOPER Gender Identity Not on file Sexual Orientation [...] Well Visit/Exam 18-64 07/31/2018 07/31/2017 Influenza Vaccine (Season Ended) 2025 Hepatitis B Screening Completed 1993 , 01/05/1993, 1992 HPV Vaccines Aged Out No longer eligi ble based on patient's age to complete this topic Pneumococcal vaccine <65 Aged Out No longer eligible based on patient's age to complete this topic Procedures Procedure Name Priority Date/Time Associated Diagnosis Comments THINPREP TIS PAP REFLEX HPV MRNA E6/E7, CHLAMYDIA/N.GONORRH OEAE Routine 07/31/2017 1:36 PM DATACAP DEVELOPER Routine cervical smear Screening examination for venereal disease from Last 3 Months or Most Recently Relevant to Health Maintenance Results * THINPREP TIS PAP REFLEX HPV mRNA E6/E7, CHLAMYDIA/N.GONORRHOEAE (07/31/2017 1:36 PM DATACAP DEVELOPER) Report status [facility]ED [facility] [place] [...] has been evaluated with computer assisted technology. Retail Account Manager [facility] - Comment: DAVID ESPINO(ASCP) CT screening location: [place] [address] [place] [address] Review drapery supervisor [facility] [place] Comment:Result canceled by t he ancillary Pathologist [facility]CEL[facility] [place] Comment:Result canceled by t he ancillary C. trachomatis RNA NOT DETECTED NOT DETECTED [facility] [place] N. gonorrhoeae RNA NOT DETECTED NOT DETECTED [facility] [place] Comment [facility] - Comment: This test was performed using the APTIMA COMBO2 Assay ([employer] The analytical performance characteristics of this assay, when used to test SurePath specimens have been determined by [employer]g. Fluid 07/31/2017 1:36 PM DATACAP DEVELOPER 08/01/2017 5:41 AM DATACAP DEVELOPER Narrative Resulting Agency Comment Performing Organization Information: Site ID: Name: [facility] Address: [address] [place] [address] Director: Popeye Bernard MD us Milady Jason MD LAB PATHOLOGY ORDERAB LES Final Result [facility] [place], [place] from Last 3 Months or Most Recently Relevant to Health Maintenance Insurance [facility] Care Teams Rn First Assistant Relationship Specialty Start Date End Date Elías Echevarria MD [address] [facility] [place] [address] PCP - General Family Medicine 10/02/22
[2024-11-04 13:54] LABS: Hematocrit 36.5 % (37.0-47.0); Hemoglobin 12.5 g/dL (12.0-15.0); Mean Corpuscular HGB Conc 34.2 g/dl (32-36); Mean Corpuscular Hemoglobin 31.8 pg (26-34); Mean Corpuscular Volume 92.9 fl (80-100); Mean Platelet Volume 9.8 fl (7.4-10.4); Platelet Count Result 197 k/mm3 (150-375); Red Blood Count 3.93 M/mm3 (4.2-5.4); White Blood Count 10.9 K/mm3 (4.5-10.0)
[2024-11-04 15:39] LABS: Syphilis IgG/IgM Antibody Negative (Negative)
== END 2024-11-04 13:22 | disposition home or self-care (01) ==
LOC: ANHLAB 13:23
PROVIDERS: PCP Family Medicine; Visit Provider Obstetrics & Gynecology
DX: Z34.93 Encounter for supervision of normal pregnancy, unspecified, third trimester (principal); Z3A.00 Weeks of gestation of pregnancy not specified
CPT/HCPCS: 36415; 85027; 86593; 86850; 86900; 86901

== ENCOUNTER 2024-11-05 05:37 | Inpatient (IN) | payer OTHER, SELFPAY ==
[2024-11-05] VITALS (79 sets, daily range): BP systolic 95–119; BP diastolic 43–91; PULSE 59–113; RESP 16–18; TEMP 36.3–37; O2SAT 92–100; BMI 28.3
--- OUTSIDE RECORDS SUMMARY | 2024-11-05 00:42 | XMS_ITS | Clinical Summary ---
Author Organization [facility] [employer] Address [address] [place] [address] Care Team Providers Care Manager Payment Name Role Phone Rosemary Manzano MD Primary Care Provider [phone] Source Comments [facility] [employer],non-owned Affiliates and Associated Physician Practices is amultiple site organization consisting of ambulatory clinics and hospital sitesin [place], [place], [place] and [place]. This disclosure is being madepursuant to the Care Everywhere program and may not contain all information available regarding this patient. Last updated 18.[facility] [employer] Allergies No known active allergies Medications * [...] on file Legal Sex Female 5:36 AM SUPERVISOR PAPER MACHINE Gender Identity Not on file Sexual Orientation Not on file Last Filed Vital Signs Vital Sign Reading Time Taken Comments Blood Pressure - - Pulse - - Temperature - - Respiratory Rate - - Oxygen Saturation - - Inhaled Oxygen Concentration - - Weight 61.7 kg (136 lb) 06/06/2022 9:34 AM SUPERVISOR PAPER MACHINE Height 160 cm (5' 3) 06/06/2022 9:34 AM SUPERVISOR PAPER MACHINE Body Mass Index 24.09 06/06/2022 9:34 AM SUPERVISOR PAPER MACHINE Plan of Treatment Health Maintenance Due Date [...] patient's age to complete this topic Insurance [facility] Care Teams Manager Payment Relationship Specialty Start Date End Date Rosemary Manzano MD [address] [place] [address] PCP - General 03/29/20
--- OUTSIDE RECORDS SUMMARY | 2024-11-05 00:43 | XMS_ITS | Referral Summary ---
Author Organization [facility] [address] Address [address] [email or web address] [address] Phone Care Team Providers Care Compressor Station Engineer Chief Name Role Phone Elías Echevarria MD Primary Care Provider [phone] Allergies No known active allergies Medications dicyclomine [...] on file Legal Sex Female 9:10 PM STOVE BOTTOM WORKER Gender Identity Not on file Sexual [...] E6/E7, CHLAMYDIA/N.GONORRH OEAE Routine 07/31/2017 1:36 PM STOVE BOTTOM WORKER Routine cervical smear Screening examination for venereal disease from Last 3 Months or Most Recently Relevant to Health Maintenance Results * THINPREP TIS PAP REFLEX HPV mRNA E6/E7, CHLAMYDIA/N.GONORRHOEAE (07/31/2017 1:36 PM STOVE BOTTOM WORKER) Report status [facility]CELED [facility] - [...] has been evaluated with computer assisted technology. Salon/Spa Manager [facility] - Comment: KMY, CT(ASCP) CT screening location: [place] [address] [address] [place] [address] Review residential care facility manager [facility]ED [facility] - Comment:Result canceled by t he ancillary Pathologist [facility]ED [facility] - Comment:Result canceled by t christa ancillary C. trachomatis RNA NOT DETECTED NOT DETECTED [facility] N. gonorrhoeae RNA NOT DETECTED NOT DETECTED [facility] Comment [facility] Comment: This test was performed using the APTIMA COMBO2 Assay ([employer] The analytical performance characteristics of this assay, when used to test SurePath specimens have been determined by [employer]. Fluid 07/31/2017 1:36 PM STOVE BOTTOM WORKER 08/01/2017 5:41 AM STOVE BOTTOM WORKER Narrative Resulting Agency Comment Performing Organization Information: Site ID: Name: [facility] Address: [facility] [place] [address] Director: Popeye Bernard MD Milady Jason MD LAB PATHOLOGY ORDERAB LES Final Result [place], [place] from Last 3 Months or Most Recently Relevant to Health Maintenance Insurance [facility] Care Teams Compressor Station Engineer Chief Relationship Specialty Start Date End Date Elías Echevarria MD [address] [facility] [address] [address] PCP - General Family Medicine 10/02/22
--- OUTSIDE RECORDS SUMMARY | 2024-11-05 00:43 | XMS_ITS | Patient Health Record ---
Author Organization [facility] Address [address] [place] [address] Care Team Providers Care Treating Engineer Name Role Phone Catherine Nolasco Primary Care Provider Reason For Referral No Information Plan Of Treatment No Information Insurance Providers Payer Name Payer Address Payer Phone Subscriber Number Group Number Insured Name Patient Relationship to Insured Coverage Start Date Coverage End Date [address] [id number] Krystyna Wilde Self - patient is the insured
--- OUTSIDE RECORDS SUMMARY | 2024-11-05 00:43 | XMS_ITS | Clinical Summary ---
Author Organization [facility] [address] Address [address] [place] [address] Phone Care Team Providers Care Vp Transportation Name Role Phone Elías Echevarria MD Primary Care Provider [phone] Allergies No known active allergies Medications dicyclomine [...] on file Legal Sex Female 9:10 PM NIGHT COORDINATOR Gender Identity Not on file Sexual [...] E6/E7, CHLAMYDIA/N.GONORRH OEAE Routine 07/31/2017 1:36 PM NIGHT COORDINATOR Routine cervical smear Screening examination for venereal disease from Last 3 Months or Most Recently Relevant to Health Maintenance Results * THINPREP TIS PAP REFLEX HPV mRNA E6/E7, CHLAMYDIA/N.GONORRHOEAE (07/31/2017 1:36 PM NIGHT COORDINATOR) Report status [facility]CELED [facility] - [...] has been evaluated with computer assisted technology. Account Technician [facility] - Comment: DAVID ESPINO(ASCP) CT screening location: [place] [address] [place] [address] Review jewelry bearing maker [facility] [place] Comment:Result canceled by t he ancillary Pathologist [facility] [place] Comment:Result canceled by t he ancillary C. trachomatis RNA NOT DETECTED NOT DETECTED [facility] [place] N. gonorrhoeae RNA NOT DETECTED NOT DETECTED [facility] [place] Comment [facility] - Comment: This test was performed using the APTIMA COMBO2 Assay ([employer] The analytical performance characteristics of this assay, when used to test SurePath specimens have been determined by [employer]. Fluid 07/31/2017 1:36 PM NIGHT COORDINATOR 08/01/2017 5:41 AM NIGHT COORDINATOR Narrative Resulting Agency Comment Performing Organization Information: Site ID: Name: [facility] Address: [address] [place] [address] Director: Popeye Bernard MD us Milady Jason MD LAB PATHOLOGY ORDERAB LES Final Result [facility] [place], [place] from Last 3 Months or Most Recently Relevant to Health Maintenance Insurance [facility] Care Teams Vp Transportation Relationship Specialty Start Date End Date Elías Echevarria MD [address] [facility] [place] [address] PCP - General Family Medicine 10/02/22
--- OUTSIDE RECORDS SUMMARY | 2024-11-05 00:43 | XMS_ITS ---
Author Organization [facility] Address [address] [place] [address] Care Team Providers Care Breakfast Bar Attendant Name Role Phone Catherine Nolasco Primary Care Provider [phone] Jessica Nunez REASON FOR VISIT Staph infection Medications Medication SIG (Take, Route, Frequency, Duration) Notes Start Date End Date Status Sulfamethoxazole-Trimetho prim 800-160 MG 1 tablet Orally twice a day for 10 days 09/07/2023 09/17/2023 Active Encounters Encounter Location Date Provider Diagnosis 2 [facility] [address] [place] [address] 09/07/2023 Jessica Trevino Staph infection B95.8 Assessments [...] improve Progress Notes * Krystyna WILDEDOB:[birth year] (34 yo F)Acc No.[id number]:09/07/2023 Patient: Krystyna BAZZI Provider: Wilma Trevino :1990 A ge:32 Y S ex:Female Date:09/07/2023 Address:[facility] [place] [address] Pcp:Catherine Nolasco Subjective: * Chief Complaints: * 1 . Staph infection . * HPI: T ransition of Care: TM call. Patient lives in [place] and consents to TM call. States she [...] improve) * Billing Information: * Visit Code: 63924 Office Visit, New Pt., Level 3. Modifiers: 25 * Procedure Codes: * Electronic signature of Jessica Trevino APN on 2024 at 12:43 AM CDT Sign off status: Pending * Provider: Wilma Trveino Date: 0 09/07/2023 Generated for Héctor Pepe/Gary on: 0 2024 12:43 AM CDT History and Physical Notes * HPI (History of Present Illness) Category Sub-Category Detail Notes Category Not es Transition of Care TM call. Patient lives in [place] and consents to TM call. States she has what appears to be a skin infection caused (probably) by Staph aureus. Examination Category Sub-Category Detail Notes Category Not es General Examination Patient is A&Ox3 while on the call. No video capabilities available to this provider.
--- OUTSIDE RECORDS SUMMARY | 2024-11-05 00:43 | XMS_ITS | Clinical Summary ---
Author Organization [facility] Address [address] [place] [address] Phone Care Team Providers Care Endoscopy Registered Nurse Name Role Phone Benson Odell DPM Unavailable [phone] Milady Jason MD Unavailable [phone] Provider, None Primary Care Provider Unavailabl e [...] on file Legal Sex Female 10:12 AM READINESS PARAPROFESSIONAL Gender Identity Not on file Sexual Orientation [...] Cervical Cancer Screening (CCS) 2022 HPV/Cotest 2022 SARS-COV-2 Immunization ( season) 2024 Influenza Immunization (Season Ended) 2025 Respiratory Syncytial Virus (RSV) Immunization (Adult) (1 - 1-dose 75+ series) 11/06/2067 Hepatitis B Immunization Completed 994, 01/05/1993, 1992 Human Papillomavirus (HPV) Immunization Aged Out No longer eligible based on patient's age to complete this topic Meningococcal Immunization (ACWY) Aged Out No longer eligible based on patient's age to complete this topic Pneumococcal Immunization Combined Aged Out No longer eligible based on patient's age to complete this topic Rotavirus Immunization Aged Out No lo nger eligible based on patient's age to complete this topic Insurance MEDICAID [facility] [employer] Care Teams Endoscopy Registered Nurse Relationship Specialty Start Date End Date Provider, None [place] PCP - General 11/18/20 Benson Odell DPM Consulting Physician Podiatry 12/28/16 Milady Jason MD [address] [place] [address] Consulting Physician Obstetrics & Gynecology 10/08/17
[2024-11-05] MEDS: ACETAMINOPHEN 500 MG TABLET 1000 MG PO (06:17)
[2024-11-05] MEDS: LACTATED RINGERS 1,000 ML 125 ML IV CONT (06:17)
--- NOTE | 2024-11-05 06:57 | P.PNAN_ITS ---
Anes - Initial Pre Proc Eval Procedure: Operation Date: 11/05/24 07:30 Proposed Procedures p Repeat Section - Eren Painter MD Date/Time: 11/05/24 06:57 Surgeon: Eren Painter MD Pre Op Diagnosis: C/S Patient Data Age: 34 Gender: F Height: Weight: Last Vital Signs Pulse 106 H 11/05/24 06:45 BP 117/91 H 11/05/24 06:45 Pulse Ox 98 11/05/24 06:54 O2 Del Method Room Air 11/05/24 06:40 Allergies Allergy/AdvReac Type Severity Reaction Status Date / Time No Known Allergies Allergy Verified 06/30/23 12:38 Home Medications ?Medication ?Instructions ?Recorded ?Confirmed ?Type 10/09/24 History Laboratory Tests 11/05/24 05:50 HIV 1&2 Ab/P24 Ag 4thGn Pending Patient hx anesthesia problems: none Family hx anesthesia problems: none Results Review: All pre-operative results and documents have been reviewed as part of the pre-operative evaluation. [facility] Past Medical History Medical History No pertinent past medical history Surgical History Surgical History History of Family History Family History Mother Bladder disease Father Hypertension Social History Social History Smoking status: Former smoker Second hand tobacco smoke exposure: No Substance use: never Do You Feel Safe in your Home?: Yes Lack of Transportation: No Lack of Food: Never True Current Housing: I Have Housing Concerned About Future Housing: No Difficulty Paying Gas/Electric Bills: No Difficulty Paying for Meds: No Currently Unemployed: No Education: Associate Degree Difficulty w/ Childcare or Family Care: No Spiritual care concerns: No Anes - Eval Final PreProcedure Day of Procedure 11/05/24 06:57 Patient weight: obese Heart: regular rate and rhythm Lungs: clear to auscultation and normal air movement Airway: Mallampati scale class II Neurological: alert and oriented Last oral intake: >/= 8 hours ASA classification: II Emergent: no Anesthetic plan: proceed Anesthesia type and monitoring: regional spinal and standard monitoring Results Review: All pre-operative results and documents have been reviewed as part of the pre-o perative evaluation. Informed Consent: The patient's anesthetic plan and its attendant risks and benefits were discussed with the patient/family/POA. Questions were solicited and answers provided to the satisfaction of the patient/family/POA.
[2024-11-05] MEDS: FAMOTIDINE 20 MG/2 ML VIAL IV PUSH (07:38)
[2024-11-05] MEDS: ONDANSETRON INJ 4 MG/2 ML VIAL IV PUSH (07:38)
[2024-11-05] MEDS: ceFAZolin 2 GM/D5W 50 ML 2 GM/50 ML BAG IVPB (07:38)
--- NOTE | 2024-11-05 07:40 | P.HP_ITS ---
H&P: HPI History of Present Illness Date/Time: 11/05/24 07:40 Chief Complaint: Term Narrative: This patient is a 34-year-old female with term and previous delivery. We agreed to perform delivery. She understands risks, benefits, and alternatives. She has completed informed consent process is ready to proceed. The patient understands the details of the procedure. The procedure has been explained in detail. She understands the risks. She understands that injuries may occur that result in hospitalization, more surgery, and severe illness. She understands risk of hemorrhage and infection. She denies any chest pain or shortness of breath. She denies any nausea, vomiting, fever, chills. Review of Systems Review of Systems: All systems reviewed & are unremarkable except as noted in HPI and below Constitutional: Constitutional: Denies chills, Denies fatigue, Denies fever(s) and Denies weakness Eyes: Eyes: Denies blurry vision, Denies change in vision, Denies loss of radha pheral vision, Denies loss of vision, Denies other visual disturbances and Denies eye pain ENT: Denies vertigo, Denies dizziness, Denies hearing loss, Denies mouth pain, Denies nasal obstruction, Denies neck mass and Denies neck pain Cardiovascular: Cardiovascular: Denies chest pain, Denies diaphoresis, Denies syncope, Denies leg edema and Denies dyspnea Respiratory: Respiratory: Denies chest congestion, Denies cough, Denies hemoptysis, Denies dyspnea and Denies wheezing Gastrointestinal: Gastrointestinal: Denies abdominal pain, Denies constipation, Denies diarrhea, Denies nausea and Denies vomiting Genitourinary: Genitourinary: Denies hematuria, Denies change in libido, Denies nocturia, Denies genital lesions, Denies flank pain and Denies urinary urgency Musculoskeletal: Musculoskeletal: Denies abnormal gait, Denies back pain, Denies myalgias, Denies arthralgias, Denies joint swelling, Denies muscle weakness and Denies neck pain Integumentary/Breasts: Skin/Breast: Denies swelling, Denies breast pain, Denies breast mass, Denies dry skin, Denies nipple discharge, Denies unusual bruising and Denies jaundice Neurologic: Denies Neuro-related abnormal movements, Denies Abnormal speech present, Denies abnormal gait, Denies behavioral changes, Denies confusion, Denies vertigo, Denies dizziness, Denies syncope, Denies loss of vision, Denies memory loss, Denies convulsions and Denies weakness Psychiatric: Psychiatric: Denies abnormal sleep pattern, Denies behavioral changes, Denies change in libido, Denies confusion, Denies depression, Denies an hedonia and Denies memory loss Endocrine: Endocrine: Reports no additional endocrine complaints, Denies change in libido and Denies fatigue Hematologic/Lymphatic: Hematologic/Lymphatic: Reports no additional hematologic/lymphatic complaints Allergic/Immunologic: Allergic/Immunologic: Reports no additional allergic/immunologic complaints and Denies wheezing PMFSH Past Medical History Medical History No pertinent past medical history Surgical History Surgical History History of Family History Family History Mother Bladder disease Father Hypertension Social History Social History Smoking status: Former smoker Second hand tobacco smoke exposure: No Substance use: never Do You Feel Safe in your Home?: Yes Lack of Transportation: No Lack of Food: Never True Current Housing: I Have Housing Concerned About Future Housing: No Difficulty Paying Gas/Electric Bills: No Difficulty Paying for Meds: No Currently Unemployed: No Education: Associate Degree Difficulty w/ Childcare or Family Care: No Spiritual care concerns: No Meds Home Medications and Allergies Home Medications ?Medication ?Instructions ?Recorded ?Confirmed ?Type 10/09/24 History Allergies Allergy/AdvReac Type Severity Reaction Status Date / Time No Known Allergies Allergy Verified 06/30/23 12:38 Vital Signs Vital Signs - 24 hr 11/05/24 06:04 11/05/24 06:09 11/05/24 06:14 Pulse Rate Blood Pressure Pulse Oximetry 96 95 94 Oxygen Delivery 11/05/24 06:19 11/05/24 06:24 11/05/24 06:29 Pulse Rate Blood Pressure Pulse Oximetry 94 94 96 Oxygen Delivery 11/05/24 06:30 11/05/24 06:34 11/05/24 06:39 Pulse Rate 106 H Blood Pressure 119/79 Pulse Oximetry 95 98 Oxygen Delivery 11/05/24 06:40 11/05/24 06:44 11/05/24 06:45 Pulse Rate 106 H Blood Pressure 117/91 H Pulse Oximetry 100 Oxygen Delivery Room Air 11/05/24 06:49 11/05/24 06:54 11/05/24 06:59 Pulse Rate Blood Pressure Pulse Oximetry 100 98 97 Oxygen Delivery 11/05/24 07:00 11/05/24 07:04 11/05/24 07:09 Pulse Rate 100 Blood Pressure 117/81 Pulse Oximetry 98 98 Oxygen Delivery 11/05/24 07:14 11/05/24 07:15 11/05/24 07:19 Pulse Rate 107 H Blood Pressure 112/77 Pulse Oximetry 96 97 Oxygen Delivery 11/05/24 07:24 11/05/24 07:29 11/05/24 07:30 Pulse Rate 96 Blood Pressure 113/75 Pulse Oximetry 97 98 Oxygen Delivery 11/05/24 07:34 Pulse Rate Blood Pressure Pulse Oximetry 100 Oxygen Delivery Exam Const: General: cooperative, healthy appearing, comfortable and no acute distress Orientation/consciousness: oriented to person, oriented to place and oriented to time HENMT: Head: normal to inspection Ears: external ears normal Face/Nose/Sinus: Normal external nose present and normal facial exam Face and sinus: normal facial exam Eyes: General: appearance normal, both eyes and all related structures Neck: Neck: normal visual inspection, trachea midline and supple Resp: Auscultation: clear to auscultation bilaterally, no crackles, no rales, no rhonchi and no wheezes Cardio: Rate: regular rate Rhythm: regular rhythm Heart sounds: no click, no murmurs and no rubs GI: GI Palp: No abdominal tenderness, No Soft to palpation, No Tenderness to palpation present (GI) and No Palpable mass present Auscultation: normal bowel sounds Skin: General skin exam: normal color and no rashes or lesions noted Neuro: General: oriented to person, oriented to place and oriented to time Extrem: General: normal to inspection, no joint enlargement, no clubbing, cyanosis or edema, no pedal edema and no calf tenderness Psych: Appearance: grossly normal Mental Status: mental status grossly normal Speech and movement: Normal speech and movement present Assessment and Plan Assessment and plan (1) delivery delivered: Code(s): O82 - Encounter for delivery without indication Status: Acute Assessment and Plan: This patient is a 34-year-old female with term and previous delivery. We agreed to perform delivery. She understands risks, benefits, and alternatives. She has completed informed consent process is ready to proceed.
--- NOTE | 2024-11-05 07:45 | WPDHPUPDATE1 ---
History and Physical Update Update Date/Time: 11/05/24 07:45 History and Physical has been reviewed, including an updated exam of the patient. There are NO changes in the patient's condition. Risks, benefits, and alternatives have been discussed and questions answered. Patient agrees to proceed with procedure.
[2024-11-05 07:52] LABS: HIV 1/2 Ab P24 Ag Result Negative (Negative)
--- NOTE | 2024-11-05 08:41 | W.PM.OBCSD ---
OB - Delivery Note Procedure Delivery date: 11/05/24 Pre-op diagnosis: Previous Delivery Post-op Diagnosis: Same Procedure Performed: Repeat Surgeon: Eren Painter MD Anesthesia type: Spinal Description of Procedure/Findings: The patient was taken the operating room.? She was prepped and draped in dorsal supine position with a leftward tilt.? This was done after spinal anesthetic was applied.? A low-transverse skin incision was made and carried down till of the fascia with the knife.? The fascial incision was made with the knife.? The fascial incision was extended laterally with Flynn scissors.? The fascia was tented upward superiorly and inferiorly the rectus muscles were dissected off bluntly.? The rectus muscles were the midline.? The preperitoneal fat and peritoneum were dissected open bluntly at the superior aspect of the rectus muscles.? The peritoneal incision was extended superior and inferior with good position of bladder.? The uterine incision was made with a scalpel down to the level of the amniotic cavity.? The amniotic cavity was entered bluntly.? The infant was delivered.? The cord was clamped and cut and the infant was handed off to waiting pediatric staff.? Cord bloods were obtained.? The placenta was removed manually.? The uterus was exteriorized.? The uterus was cleared of all clots, debris and membranes.? The uterus was closed in 0 Vicryl running lock fashion.? An imbricating over a was placed along the incision line as well.? The uterus was returned to the abdomen.? The gutters were cleared of all clots and debris.? The fascia was closed with 0 Vicryl running fashion.? The subcutaneous tissue was irrigated pinpoint bleeders were cauterized.? The skin was closed with subcuticular absorbable catherine.? The skin incision line was covered with glue.? The patient tolerated the procedure well.? She has taken recovery room in stable condition.? Sponge lap and needle counts were correct x2.? Specimen: No Estimated Blood Loss: 290 Pathology: None sent Complications: No immediate complications Condition: Stable Disposition: PACU
[2024-11-05 09:52] LABS: Syphilis IgG/IgM Antibody Negative (Negative)
[2024-11-05] MEDS: OXYTOCIN 30 UNITS/NS 500 ML 30 UNITS/500 ML BAG 125 UNITS IV CONT (10:40)
--- NOTE | 2024-11-05 10:54 | OBPPTRN ---
Patient transferred to post room #279 via (stretcher). Support person present. Oriented to unit, room, information board, rooming in, admission packet and security measures. Patient verbalizes understanding.
[2024-11-05] MEDS: SIMETHICONE 80 MG TAB.CHEW PO ×2 (11:52→18:28)
[2024-11-05] MEDS: DOCUSATE SODIUM 100 MG CAPSULE PO ×2 (11:52→18:28)
[2024-11-05] MEDS: ACETAMINOPHEN 325 MG TABLET 650 MG PO ×3 (11:52→23:34)
[2024-11-05] MEDS: MULTIVIT/MIN/PREN/FOL AC/IRON TABLET 1 TAB PO (11:53)
[2024-11-05] MEDS: LORATADINE 10 MG TABLET PO (11:53)
[2024-11-05] MEDS: KETOROLAC 15 MG/ML VIAL (*BKC) IV PUSH ×3 (11:53→23:34)
[2024-11-05] MEDS: HYDROcodone/acetaminophen (*CRX) 10-325 MG TABLET 1 TAB PO (13:23)
[2024-11-05] MEDS: POLYSACCHARIDE IRON COMPLEX 150 MG CAPSULE PO (18:29)
[2024-11-05] MEDS: HYDROcodone/acetaminophen (*CRX) 5-325 MG TABLET 1 TAB PO (21:27)
[2024-11-06 04:00] VITALS: BP 106/74; PULSE 69; RESP 16; TEMP 36.8; O2SAT 99
[2024-11-06] MEDS: HYDROcodone/acetaminophen (*CRX) 5-325 MG TABLET 1 TAB PO (04:07)
--- NOTE | 2024-11-06 04:16 | ECG_ITS ---
Test Date: 2024-11-06 04:36:56 Measurements Intervals [place] Rate: 79 P: 63 AL: 130 QRS: 26 QRSD: 81 T: 26 QT: 351 QTc: 404 Interpretive Statements SINUS RHYTHM WITH SINUS ARRHYTHMIA NORMAL ECG No previous ECG available for comparison Electronically Signed On 11-06-2024 06:12:29 CDT by Sulaiman Estrada D.O.
[2024-11-06] MEDS: SIMETHICONE 80 MG TAB.CHEW PO ×3 (04:18→17:01)
[2024-11-06] MEDS: KETOROLAC 15 MG/ML VIAL (*BKC) IV PUSH (05:24)
[2024-11-06 05:52] LABS: Basophils Percent Auto 0.4 % (0.2-1.2); Eosinophils Absolute Auto 0.1 K/mm3 (0-0.3); Eosinophils Percent Auto 1.1 % (0-4.4); Hemoglobin 11.4 g/dL (12.0-15.0); Immature Granulocyte Absolute 0.18 K/mm3 (0.00-0.031); Immature Granulocyte Percent A 1.6 % (0-0.5); Lymphocytes Absolute Auto 2.06 K/mm3 (0.9-3.2); Lymphocytes Percent Auto 18.1 % (18.3-44.2); Mean Corpuscular HGB Conc 33.5 g/dl (32-36); Mean Corpuscular Hemoglobin 31.9 pg (26-34); Mean Corpuscular Volume 95.2 fl (80-100); Mean Platelet Volume 10.2 fl (7.4-10.4); Monocytes Absolute Auto 1.2 K/mm3 (0.1-0.6); Monocytes Percent Auto 10.4 % (2.6-8.5); Neutrophils Absolute Auto 7.8 K/mm3 (1.3-6.7); Neutrophils Percent Auto 68.4 % (45.5-73.1); Platelet Count Result 164 k/mm3 (150-375); Red Blood Count 3.57 M/mm3 (4.2-5.4); Red Cell Distribution Width 12.9 % (11.5-14.5); White Blood Count 11.4 K/mm3 (4.5-10.0)
[2024-11-06] MEDS: DOCUSATE SODIUM 100 MG CAPSULE PO ×2 (07:53→17:01)
[2024-11-06] MEDS: MULTIVIT/MIN/PREN/FOL AC/IRON TABLET 1 TAB PO (07:53)
[2024-11-06] MEDS: HYDROcodone/acetaminophen (*CRX) 10-325 MG TABLET 1 TAB PO ×2 (08:04→22:57)
[2024-11-06 08:05] VITALS: BP 106/71; PULSE 66; RESP 16; TEMP 36.9; O2SAT 99
--- NOTE | 2024-11-06 10:27 | WPDANLDNPN2 ---
Anes-Prog Note L&D-Neuraxial Date/Time: 11/06/24 10:27 Neuraxial medications: intrathecal PF morphine Opiod-related complaints: none Patient feedback: Patient satisfied with post-operative pain management.
--- NOTE | 2024-11-06 10:27 | WPDANLDPN2 ---
Anes-Prog Note L&D Date/Time: 11/06/24 10:27 Comfortable throughout: section Neuraxial method: spinal Epidural/Spinal procedure site: clean & non-tender Neuro status: Neuro function grossly intact. Cardiovascular status: normal Respiratory status: normal Airway patency: baseline Mental status: baseline Post-Op hydration status: normal Vital Signs: Last Vital Signs Temp 98.4 F 11/06/24 08:05 Pulse 66 11/06/24 08:05 Resp 16 11/06/24 08:05 BP 106/71 11/06/24 08:05 Pulse Ox 99 11/06/24 08:05 O2 Del Method Room Air 11/05/24 16:30 Pain score (VAS): 0/10 I/O: Intake & Output 11/05/24 11/06/24 11/06/24 23:59 07:59 15:59 Intake Total 240 Output Total 450 1400 Balance -210 -1400 Post-procedural complaints: none Patient feedback: Patient satisfied with anesthetic care.
[2024-11-06] MEDS: IBUPROFEN 600 MG TABLET PO ×3 (11:07→22:57)
[2024-11-06] MEDS: ACETAMINOPHEN 325 MG TABLET 650 MG PO ×3 (11:07→22:57)
--- NOTE | 2024-11-06 14:29 | PM.OBPNVD ---
OB - PN: Subj Subjective Date/time seen: 11/06/24 14:29 Patient comments: no complaints, pain well controlled, tolerating diet and flatus present OB - PN: Obj Data Labs 11/06/24 04:24 Labs: Laboratory Results - last 24 hr 11/06/24 04:24 WBC 11.4 H RBC 3.57 L Hgb 11.4 L Hct 34.0 L MCV 95.2 MCH 31.9 MCHC 33.5 RDW 12.9 Plt Count 164 MPV 10.2 Immature Gran % (Auto) 1.6 H Neut % (Auto) 68.4 Lymph % (Auto) 18.1 L [place] % (Auto) 10.4 H Eos % (Auto) 1.1 Baso % (Auto) 0.4 Lymph # (Auto) 2.06 [place] # (Auto) 1.2 H Eos # (Auto) 0.1 Baso # (Auto) 0.0 Abs Immat Gran (auto) 0.18 H Absolute Neuts (auto) 7.8 H Absolute Nucleated RBC 0.000 Nucleated RBC % 0.0 OB - PN A/P Plan day: 1 Comments: Post Op LTCS - no problems, routine recovery Time Spent With Patient Time: Total time spent is greater than 50% in coordination of care (as documented) at patient's floor/unit and/or counseling patient: Exam Const: General: cooperative, healthy appearing, comfortable and no acute distress Resp: Auscultation: no crackles, no rales, no rhonchi and no wheezes Cardio: Rhythm: regular rhythm Heart sounds: no click and no murmurs GI: Inspection: non-distended Auscultation: normal bowel sounds Extrem: General: normal to inspection, no pedal edema and no calf tenderness
--- NOTE | 2024-11-06 17:05 | PC.NURSE ---
9355. Mother verbalizes she is able to independently latch infant with appropriate positioning and alignment. She denies any nipple discomfort and is responsively . is currently down 5% at 24 hours old. Infant is feeding about every 2-3 hours currently. Mother declines any additional assistance or education at this time. Mother is encouraged to call for assistance if her doesn?t latch, pain with latching, questions or concerns. Mother voiced understanding of information shared along with the mom/baby guide for an additional resource. Reported to the Primary RN.
[2024-11-06 19:45] VITALS: BP 123/79; PULSE 73; RESP 16; TEMP 36.8; O2SAT 99
[2024-11-06] MEDS: LIDOCAINE 5% PATCH 1 PATCH TRANSDERM (19:45)
[2024-11-07] MEDS: HYDROcodone/acetaminophen (*CRX) 5-325 MG TABLET 1 TAB PO ×2 (05:20→11:08)
[2024-11-07] MEDS: IBUPROFEN 600 MG TABLET PO ×2 (05:20→11:08)
[2024-11-07] MEDS: ACETAMINOPHEN 325 MG TABLET 650 MG PO ×2 (05:20→11:08)
[2024-11-07 07:25] VITALS: BP 111/70; PULSE 83; RESP 16; TEMP 36.9; O2SAT 99
--- NOTE | 2024-11-07 07:37 | P.PNOB_ITS ---
OB - PN: Subj Subjective Date/time seen: 11/07/24 07:37 Interval history: pp day 2 ambulating w/o difficulty OB - PN: Obj Data Labs 11/06/24 04:24 OB - PN A/P Plan day: 2 Plan: routine care and discharge home Time Spent With Patient Time: Total time spent is greater than 50% in coordination of care (as documented) at patient's floor/unit and/or counseling patient: Review of Systems 2 Review of Systems: All systems reviewed & are unremarkable except as noted in HPI and below Exam 2 Const: General: cooperative and healthy appearing Resp: Effort & Inspection: normal respiratory effort Cardio: Rate: regular rate GI: Other: incision CDI
--- NOTE | 2024-11-07 07:40 | PM.OBDSVD ---
DS: Admitting Diagnosis Discharge Date 11/07/24 Admitting Diagnosis repeat DS: Discharge Diagnosis Discharge Diagnosis (1) delivery delivered: Code(s): O82 - Encounter for delivery without indication Status: Acute OB - DS: Summary OB Procedures : None OB Procedures Intrapartum: OB Procedures: : None Peripartum Data Procedures: Procedures Operation Date: 11/05/24 07:30 Actual Procedure Side Surgeon p Section Bilateral Eren Painter MD Time Spent with Patient Time attestation: Total time spent providing and/or coordinating discharge services: Discharge Plan Discharge Attending physician on discharge: Eren Painter Discharging Clinician: Charlene Murray Patient Disposition: Home Activity: pelvic rest Diet: regular Patient Instructions: Antibiotic Form Patient Language: Croatian Stand Alone Forms: General Discharge Information Follow-up/Referrals: Eren Painter MD [Physician] - 1 Week (sp-4 weeks) Discharge Medications: New hydrocodone-acetaminophen 5-325 mg Tablet 1 tablet PO Q3H PRN (Reason: Breakthrough Pain Rated 4-6) 10 Days Qty: 25 0RF No Action Date of admission: 11/05/24 05:37 Primary Care Provider: Wale,Elías Sandoval Admitting Provider: Eren Painter Attending physician on admission: Eren Painter Condition: Stable
--- NOTE | 2024-11-07 08:05 | PC.NURSE ---
Reviewed standard discharge information with patient including monitoring for required output, transition of stools, feeding 8-12 times every 24 hours, milk production, and follow up at [facility] and with bead preparer in the first week of life. Parents are encouraged to take the feeding log and continue to track feedings and output for the first week . Offered outpatient resources with [facility] referral and Services at [place]. Patient has the Mom/Baby Guide for further education and reference for common concerns, phone numbers, and guidance on when to call the doctor. A feeding plan was added to the infant?s discharge plan. Patient states that she has no further questions or concerns regarding .???
[2024-11-07] MEDS: SIMETHICONE 80 MG TAB.CHEW PO ×2 (08:31→11:08)
[2024-11-07] MEDS: MULTIVIT/MIN/PREN/FOL AC/IRON TABLET 1 TAB PO (08:31)
[2024-11-07] MEDS: DOCUSATE SODIUM 100 MG CAPSULE PO (08:31)
[2024-11-10 10:28] VITALS: BP 129/81; PULSE 100; RESP 18; TEMP 37.1; O2SAT 100
== END 2024-11-07 11:56 | disposition home or self-care (01) | DRG 540 ==
LOC: ANHLDR 05:41 → ANHOB2 11:09
PROVIDERS: Admitting Provider Obstetrics & Gynecology; PCP Family Medicine; Visit Provider Obstetrics & Gynecology
PROC: 10D00Z1 Extraction of Products of Conception, Low, Open Approach (ICD-10-PCS; CPT 59514; principal; 2024-11-05 07:30)
DX: O34.211 Maternal care for low transverse scar from previous cesarean delivery (principal); Z37.0 Single live birth; Z3A.40 40 weeks gestation of pregnancy; O69.81X0 Labor and delivery complicated by cord around neck, without compression, not applicable or unspecified; O43.193 Other malformation of placenta, third trimester
CPT/HCPCS: 36415; 85025; 85027; 86593; 86703; 86850; 86900; 86901; 93005; A9270; G0432; J0690; J1885; J2274; J2405; J2590; J7120